=== PATIENT | female | born 1940 | race Caucasian/White ===

== ENCOUNTER → 2016-09-12 | Outpatient (CLI) | payer MEDICARE, OTHER ==
--- NOTE | 2016-09-12 15:25 | RAD ---
CT abdomen and pelvis without contrast History: Gross hematuria this morning. Comparison: CT abdomen pelvis 11/12/2004. Technique: Helical CT of the abdomen and pelvis was performed without intravenous or oral contrast. Axial, sagittal, and coronal reconstructions were obtained. One or more of the following individualized dose reduction techniques were utilized for the study: Automated exposure control Adjustment of mA and/or kV according to patient's size Use of iterative reconstruction technique. Findings: Evaluation of the solid organs is limited by lack of intravenous contrast. Evaluation of enteric structures may be limited by lack of oral contrast. Images of lower chest demonstrate mild scattered areas of honeycombing. Small-moderate hiatal hernia is present. Liver, spleen, pancreas, gallbladder, and left adrenal gland are unremarkable. Right adrenal gland demonstrates 1.3 cm lipid rich adenoma. There is no evidence of bowel obstruction. No free air or free fluid is identified in the abdomen or pelvis. Appendix appears within normal limits. Urinary bladder is unremarkable. Aortic atherosclerosis is present. Uterus and adnexa have unremarkable CT appearance. Each kidney demonstrates presence of nonobstructive nephroliths at the inferior pole. Right inferior pole demonstrates a 7 mm nonobstructing nephrolith. Inferior pole of left kidney demonstrates 8 mm nonobstructive nephrolith. Moderate-severe degenerative levoconvex scoliosis of the lumbar spine is present. Impression: 1. Bilateral nonobstructive nephrolithiasis. 2. No acute abnormality identified in the abdomen or pelvis.
== END | disposition home or self-care (01) ==
LOC: CT 14:17
PROVIDERS: ATTEND Physician Assistant
DX: N20.0 Calculus of kidney (principal); M41.86 Other forms of scoliosis, lumbar region; I70.0 Atherosclerosis of aorta; K44.9 Diaphragmatic hernia without obstruction or gangrene; R31.0 Gross hematuria; Z72.0 Tobacco use
CPT/HCPCS: 74176

== ENCOUNTER 2017-09-26 23:43 | Inpatient (IN) | payer MEDICARE, OTHER ==
[~2017-09-26] VITALS: Ht 162.6 cm; Wt 80.8 kg
--- NOTE | 2017-09-26 23:45 | ED.ADGEN ---
Past History Past Medical History: A-Fib, Arthritis, CHF, COPD, UTI, Other Past Surgical History: Other Smoking: Cigarettes Adult General Chief Complaint Chief Complaint ".. I ve been sick since last week.. I just coughing all the time.. can't breath..." HPI HPI Patient is a 77 year old female who presents with above hx and complaints increased wheezing and coughing. Patient does have a history of COPD, A. fib, and rheumatoid arthritis. Patient denies any specific ill contacts or travel. Patient has been coughing and so short of breath she has been unable to smoke. Patient states she was diagnosed with UTI when she seen Dr. Ruffin's office yesterday. Patient states she is unable to lay flat because she feels too short of breath. Patient used to be on xeralto anticoagulant but it was stopped because of the hematuria. Review of Systems Review of Systems Constitutional: Objective history of fever Eyes: Denies change in visual acuity, redness, or eye pain [] HENT: Complaints of nasal congestion , rhinorrhea, sore throat [] Respiratory: Persistent cough and increased shortness of breath [. Increased wheezing Cardiovascular: No additional information not addressed in HPI [] GI: Denies abdominal pain, nausea, vomiting, bloody stools or diarrhea [] : Denies dysuria or hematuria [] Musculoskeletal: Denies back pain or joint pain [] Integument: Denies rash or skin lesions [] Neurologic: Denies headache, focal weakness or sensory changes [] Endocrine: Denies polyuria or polydipsia [] All other systems were reviewed and found to be within normal limits, except as documented in this note. Family History Family History Noncontributory Current Medications Current Medications Current Medications Medications (Trade) Dose Ordered Sig/Osvaldo Start Time Stop Time Status Last Admin Dose Admin Acetaminophen/ Codeine Phosphate (Tylenol #3) 1 tab PRN QID PRN 09/27/17 01:45 Albuterol/ Ipratropium (Duoneb) 3 ml 1X ONCE 09/27/17 00:45 09/27/17 01:49 DC 09/27/17 00:58 3 ML Aspirin (Children'S Aspirin) 324 mg 1X ONCE 09/27/17 00:45 09/27/17 00:46 DC 09/27/17 00:57 324 MG Azithromycin (Zithromax) 500 mg 1X ONCE 09/27/17 00:45 09/27/17 00:46 DC 09/27/17 00:57 500 MG Ceftriaxone Sodium 1 gm/ Sodium Chloride 50 ml @ 100 mls/hr 1X ONCE 09/27/17 00:00 09/27/17 00:29 UNV Ceftriaxone Sodium (Rocephin) 1 gm ONCE ONCE 09/27/17 00:45 09/27/17 00:46 DC 09/27/17 00:56 1 GM Furosemide (Lasix) 20 mg 1X ONCE 09/27/17 02:00 09/27/17 02:01 DC 09/27/17 03:09 20 MG Iohexol (Omnipaque 300 Mg/ml) 75 ml 1X ONCE 09/27/17 02:00 09/27/17 02:01 DC 09/27/17 02:38 75 ML Lactated Ringer's 1,000 ml @ 100 mls/hr Q10H 09/27/17 00:30 09/27/17 10:29 09/27/17 03:10 100 MLS/HR Magnesium Sulfate 50 ml @ 25 mls/hr 1X ONCE 09/27/17 02:00 09/27/17 03:59 09/27/17 03:09 25 MLS/HR Methylprednisolone Sodium Succinate (SOLU-Medrol 125MG VIAL) 125 mg 1X ONCE 09/27/17 00:45 09/27/17 00:46 DC 09/27/17 00:57 125 MG Ondansetron HCl (Zofran) 4 mg PRN Q4HRS PRN 09/27/17 01:45 09/28/17 01:44 Allergies Allergies Allergies Coded Allergies Type Severity Reaction Last Updated Verified No Known Drug Allergies 09/26/17 No Physical Exam Physical Exam Constitutional: Moderately acute distress, non-toxic appearance. [] HENT: Normocephalic, atraumatic, bilateral external ears normal, oropharynx moist, no oral exudates, nose normal. [] Eyes: PERRLA, EOMI, conjunctiva normal, no discharge. [] Neck: Normal range of motion, no tenderness, supple, no stridor. [] Rt. sided endarterectomy scar Cardiovascular:Heart rate regular rhythm, no murmur [] Lungs & Thorax: Bilateral breath sounds equal at apex with scattered wheezes and rhonchi on auscultation []. Rhonchi seem worse on Rt lung spencer. Pt has episodes of severe coughing . Abdomen: Bowel sounds normal, soft, no tenderness, no masses, no pulsatile masses. [] Skin: Warm, dry, no erythema, no rash. Poor turgor Back: No tenderness, no CVA tenderness. [] Extremities: No tenderness, no cyanosis, no clubbing, ROM intact, no edema. [ Arthritic changes. Varicosities. No cording appreciated. Neurologic: Alert and oriented X 3, normal motor function, normal sensory function, no focal deficits noted. [] Psychologic: Affect anxious, judgement normal, mood normal. [] Current Patient Data Vital Signs Vital Signs Date Time Temp Pulse Resp B/P (MAP) Pulse Ox O2 Delivery O2 Flow Rate FiO2 09/27/17 01:51 70 20 130/60 (83) 95 Room Air Lab Results Laboratory Tests Test 09/26/17 00:05 White Blood Count 15.1 x10^3/uL (4.0-11.0) H Red Blood Count 3.68 x10^6/uL (3.50-5.40) Hemoglobin 12.2 g/dL (12.0-15.5) Hematocrit 36.1 % (36.0-47.0) Mean Corpuscular Volume 98 fL (79-100) Mean Corpuscular Hemoglobin 33 pg (25-35) Mean Corpuscular Hemoglobin Concent 34 g/dL (31-37) Red Cell Distribution Width 14.5 % (11.5-14.5) Platelet Count 223 x10^3/uL (140-400) Neutrophils (%) (Auto) 76 % (31-73) H Lymphocytes (%) (Auto) 14 % (24-48) L Monocytes (%) (Auto) 10 % (0-9) H Eosinophils (%) (Auto) 1 % (0-3) Basophils (%) (Auto) 0 % (0-3) Neutrophils # (Auto) 11.5 x10^3uL (1.8-7.7) H Lymphocytes # (Auto) 2.1 x10^3/uL (1.0-4.8) Monocytes # (Auto) 1.5 x10^3/uL (0.0-1.1) H Eosinophils # (Auto) 0.1 x10^3/uL (0.0-0.7) Basophils # (Auto) 0.0 x10^3/uL (0.0-0.2) Segmented Neutrophils % 66 % (35-66) Band Neutrophils % 7 % (0-9) Lymphocytes % 15 % (24-48) L Monocytes % 12 % (0-10) H Toxic Granulation Mod Platelet Estimate Adequate (ADEQUATE) Large Platelets Occ Erythrocyte Sedimentation Rate 50 (0-25) H Prothrombin Time 12.1 SEC (9.4-11.4) H Prothrombin Time INR 1.2 (0.9-1.1) H PTT 31 SEC (23-33) D-Dimer (Jocelin) 0.74 mg/L (0.00-0.50) H Urine Collection Type Unknown Urine Color Amanda Urine Clarity Hazy Urine pH 5.0 Urine Specific [place] 1.025 Urine Protein 30 mg/dl (NEG-TRACE) Urine Glucose (UA) Neg mg/dL (NEG) Urine Ketones (Stick) Neg mg/dL (NEG) Urine Blood Mod (NEG) Urine Nitrite Neg (NEG) Urine Bilirubin Neg (NEG) Urine Urobilinogen Dipstick 1 mg/dL (0.2 mg/dL) Urine Leukocyte Esterase Trace (NEG) Urine RBC >40 /HPF (0-2) Urine WBC >40 /HPF (0-4) Urine Bacteria Mod /HPF (0-FEW) Urine Mucus Slight /LPF Sodium Level 134 mmol/L (136-145) L Potassium Level 3.9 mmol/L (3.5-5.1) Chloride Level 98 mmol/L (98-107) Carbon Dioxide Level 25 mmol/L (21-32) Anion Gap 11 (6-14) Blood Urea Nitrogen 21 mg/dL (7-20) H Creatinine 0.8 mg/dL (0.6-1.0) Estimated GFR (Cockcroft-Gault) 69.7 Glucose Level 112 mg/dL (70-99) H Lactic Acid Level 1.4 mmol/L (0.4-2.0) Calcium Level 9.0 mg/dL (8.5-10.1) Magnesium Level 1.7 mg/dL (1.8-2.4) L Total Bilirubin 0.8 mg/dL (0.2-1.0) Direct Bilirubin 0.2 mg/dL (0.0-0.2) Aspartate Amino Transferase (AST) 45 U/L (15-37) H Alanine Aminotransferase (ALT) 21 U/L (14-59) Alkaline Phosphatase 95 U/L (46-116) Creatine Kinase 165 U/L (26-192) Creatine Kinase MB (Mass) 1.6 ng/mL (0.0-3.6) Creatine Kinase MB Relative Index 1.0 % (0-4) Troponin I Quantitative < 0.017 ng/mL (0-0.055) GF-Twc-B-Type Natriuretic Peptide 670 pg/mL (0-449) H Total Protein 6.6 g/dL (6.4-8.2) Albumin 3.4 g/dL (3.4-5.0) Lipase 176 U/L (73-393) Urine Opiates Screen Neg (NEG) Urine Methadone Screen Neg (NEG) Urine Barbiturates Neg (NEG) Urine Phencyclidine Screen Neg (NEG) Urine Amphetamine/Methamphetamine Neg (NEG) Urine Benzodiazepines Screen Neg (NEG) Urine Cocaine Screen Neg (NEG) Urine Cannabinoids Screen Neg (NEG) Urine Ethyl Alcohol Neg (NEG) EKG EKG My interpretation EKG shows a sinus rhythm at a rate of 71. There is leftward axis. No findings acute STEMI of contralateral changes.[] Radiology/Procedures Radiology/Procedures My interpretation of chest x-ray shows borderline cardiomegaly with COPD the parenchymal findings[]. Rt. upper lobe infiltrates. DJD. Hiatal hernia. Some increased cephalization. CT of chest pending at time of admission. Course & Med Decision Making Course & Med Decision Making Pertinent Labs and Imaging studies reviewed. (See chart for details). Discussed presentation, testing and tx plan with Dr Ruffin- pt to be admitted for further eval and tx. [] Final Impression Final Impression 1. COPD exacerbation 2. Leukocytosis 3. Hypoxia 4. Elevated D-dimer 5. CHF- BNP 670 6. UTI 7. Tobacco Use 8. Hx. Rheumatoid Arthritis 9. Hx. Afib 10. Pneumonia-Rt upper lobe 11. Hiatal hernia [] Problems: Dragon Disclaimer Dragon Disclaimer This electronic medical record was generated, in whole or in part, using a voice recognition dictation system. KAMILLA MENDOZA MD Sep 26, 2017 23:45
--- NOTE | 2017-09-27 00:28 | EKG ---
[address] [address] Test Date: 2017-09-26 Test Time: 23:56:19 Pat Name: JACY COLON Department: Room: Gender: F Infertility Medical Assistant: : 1940 Requested By: KAMILLA MENDOZA Order Number: [id number] Reading MD: Measurements Intervals [place] Rate: 71 P: 39 HI: 168 QRS: -14 QRSD: 98 T: 0 QT: 386 QTc: 420 Interpretive Statements SINUS RHYTHM LEFT ATRIAL ABNORMALITY LEFTWARD AXIS ABNORMAL ECG RI6.01 No previous ECG available for comparison
[2017-09-27] MEDS ORDERED: methylPREDNISolone SOD SUCC PF 125 MG/2 ML VIAL. IV ONE (00:45)
[2017-09-27] MEDS ORDERED: IPRATRPIUM/ALBUTEROL 0.5/2.5MG 3 ML NEBU. NEB ONE ×2 (00:45)
[2017-09-27] MEDS ORDERED: AZITHROMYCIN 250 MG TABLET. PO ONE (00:45)
[2017-09-27] MEDS ORDERED: cefTRIAXone IV Push 1 GM VIAL. IVP ONE (00:45)
[2017-09-27] MEDS ORDERED: ASPIRIN 81 MG TAB.CHEW PO ONE (00:45)
[2017-09-27] MEDS ORDERED: ACETAMINOPHEN/CODEINE 300/30MG TABLET PO ONE (00:45)
[2017-09-27] MEDS: IV RINGERS SOLUTION,LACTATED 1,000 ML IV SCH ×2 (00:57→03:10)
[2017-09-27 01:08] LABS: BASO % 0 % (0-3); EOS # 0.1 x10^3/uL (0.0-0.7); EOS % 1 % (0-3); HEMATOCRIT 36.1 % (36.0-47.0); HEMOGLOBIN 12.2 g/dL (12.0-15.5); LYMPH # 2.1 x10^3/uL (1.0-4.8); LYMPH % 14 % (24-48); MEAN CORPUSCULAR HEMOGLOBIN 33 pg (25-35); MEAN CORPUSCULAR HGB CONC 34 g/dL (31-37); MEAN CORPUSCULAR VOLUME 98 fL (79-100); MONO # 1.5 x10^3/uL (0.0-1.1); MONO % 10 % (0-9); NEUT # 11.5 x10^3uL (1.8-7.7); NEUT % 76 % (31-73); PLATELET COUNT 223 x10^3/uL (140-400); RED BLOOD COUNT 3.68 x10^6/uL (3.50-5.40); RED CELL DISTRIBUTION WIDTH 14.5 % (11.5-14.5); WHITE BLOOD COUNT 15.1 x10^3/uL (4.0-11.0)
[2017-09-27 01:30] LABS: ALBUMIN 3.4 g/dL (3.4-5.0); CREATININE 0.8 mg/dL (0.6-1.0); DIRECT BILIRUBIN 0.2 mg/dL (0.0-0.2); GFR 69.7; MAGNESIUM 1.7 mg/dL (1.8-2.4); POTASSIUM 3.9 mmol/L (3.5-5.1); TOTAL BILIRUBIN 0.8 mg/dL (0.2-1.0); TOTAL PROTEIN 6.6 g/dL (6.4-8.2)
[2017-09-27 01:44] LABS: BARBITURATES NEG (NEG); BENZODIAZEPINES NEG (NEG); CANNABINOIDS NEG (NEG); COCAINE NEG (NEG); METHADONE NEG (NEG); OPIATES NEG (NEG); PHENCYCLIDINE NEG (NEG)
[2017-09-27] MEDS ORDERED: ONDANSETRON PF 4 MG/2 ML VIAL. IV PRN (01:45)
[2017-09-27 01:48] LABS: AMPHETAMINE/METHAMPHETAMINE NEG (NEG)
[2017-09-27 01:56] LABS: BILIRUBIN,URINE NEG (NEG); CLARITY,URINE HAZY; COLOR,URINE AMBER; GLUCOSE,URINE NEG (NEG); NITRITE,URINE NEG (NEG); UROBILINOGEN,URINE 1 mg/dL (0.2 mg/dL)
[2017-09-27 01:57] LABS: BACTERIA,URINE MOD /HPF (0-FEW); RBC,URINE >40 /HPF (0-2); WBC,URINE >40 /HPF (0-4)
[2017-09-27] MEDS ORDERED: FUROSEMIDE 40 MG/4 ML VIAL IVP ONE (02:00)
[2017-09-27] MEDS ORDERED: MAGNESIUM SULFATE 2GM 50 ML IV ONE (02:00)
[2017-09-27] MEDS ORDERED: IOHEXOL 300 MG/ML 75 ML VIAL. IV ONE (02:00)
[2017-09-27 02:27] LABS: % BANDS 7 % (0-9); % LYMPHS 15 % (24-48); % MONOS 12 % (0-10); % SEGS 66 % (35-66); PLT ESTIMATE ADEQUATE (ADEQUATE)
[2017-09-27 02:28] LABS: TOXIC GRANULATION MOD
[2017-09-27 02:29] LABS: SEDIMENTATION RATE 50 (0-25)
--- NOTE | 2017-09-27 02:48 | NUR ---
The patient, JACY COLON, 77 y/o, F admitted by HERBERT ZUNIGA MD, was given written information regarding hospital policies, unit procedures and contact persons. Valuables were checked and logged. Call light in reach. Will continue to monitor.
[2017-09-27 03:00] VITALS: BP 118/49
--- NOTE | 2017-09-27 03:35 | RAD ---
CT angiogram of the chest with contrast: Reason for examination: Chest pain with elevated d-dimer and hypoxia. Helical images were obtained through the chest with intravenous administration of 75 cc Omnipaque 300 using PE protocol. 3-D MIPS reconstruction was performed in sagittal and coronal planes. Exposure: One or more of the following individualized dose reduction techniques were utilized for this examination: 1. Automated exposure control 2. Adjustment of the mA and/or kV according to patient size 3. Use of iterative reconstruction technique. No abnormality seen at the thyroid gland. The trachea and mainstem bronchi show no intraluminal lesions. There is a large hiatal hernia. The thoracic aorta shows no aneurysmal dilatation or dissection. The heart size is mildly enlarged with no pericardial effusion evident. No pulmonary embolus is evident. There are however patchy infiltrate seen bilaterally predominantly in the right upper lung field. A few scattered calcified granuloma present. No pleural effusions or pneumothorax are seen. There are degenerative changes in the spine. No abnormalities are seen at the liver, spleen or adrenal glands. Nonobstructing left renal calculus is seen. IMPRESSION: Large hiatal hernia. Cardiomegaly. No evidence of pulmonary embolus. Infiltrates bilaterally but predominantly in the right upper lobe. Degenerative spondylosis. Electronically signed by: Patricia Toney MD (09/27/2017 3:32 AM) [facility]
[2017-09-27] MEDS ORDERED: METO25TA2 PO (05:08)
[2017-09-27] MEDS ORDERED: NABU750T PO (05:10)
[2017-09-27 05:11] LABS: BASO % 0 % (0-3); EOS % 0 % (0-3); HEMATOCRIT 34.8 % (36.0-47.0); HEMOGLOBIN 11.7 g/dL (12.0-15.5); LYMPH # 0.6 x10^3/uL (1.0-4.8); LYMPH % 4 % (24-48); MEAN CORPUSCULAR HEMOGLOBIN 33 pg (25-35); MEAN CORPUSCULAR HGB CONC 34 g/dL (31-37); MEAN CORPUSCULAR VOLUME 98 fL (79-100); MONO # 0.3 x10^3/uL (0.0-1.1); MONO % 2 % (0-9); NEUT # 14.4 x10^3uL (1.8-7.7); NEUT % 94 % (31-73); PLATELET COUNT 211 x10^3/uL (140-400); RED BLOOD COUNT 3.57 x10^6/uL (3.50-5.40); RED CELL DISTRIBUTION WIDTH 14.5 % (11.5-14.5); WHITE BLOOD COUNT 15.3 x10^3/uL (4.0-11.0)
[2017-09-27] MEDS ORDERED: FLEC100T PO (05:12)
[2017-09-27] MEDS ORDERED: METH2.5T PO (05:12)
[2017-09-27] MEDS ORDERED: FOLI1TAB16 PO (05:12)
[2017-09-27] MEDS ORDERED: CHOL2000 PO (05:13)
[2017-09-27] MEDS ORDERED: ASPI-630 PO (05:14)
[2017-09-27] MEDS ORDERED: MULT-697 PO (05:14)
[2017-09-27] MEDS ORDERED: BENZ100C PO (05:15)
[2017-09-27] MEDS ORDERED: CETI10TA16 PO (05:15)
[2017-09-27] MEDS: IPRATRPIUM/ALBUTEROL 0.5/2.5MG 3 ML NEBU. NEB SCH ×5 (05:17→20:21)
[2017-09-27 05:25] LABS: ALBUMIN 3.1 g/dL (3.4-5.0); CALCIUM 8.7 mg/dL (8.5-10.1); CREATININE 0.7 mg/dL (0.6-1.0); GFR 81.4; POTASSIUM 3.3 mmol/L (3.5-5.1); TOTAL BILIRUBIN 0.7 mg/dL (0.2-1.0); TOTAL PROTEIN 6.2 g/dL (6.4-8.2)
[2017-09-27] MEDS ORDERED: PNEUMOCOCCAL VAX SCREEN. MC PRN (05:45)
[2017-09-27] MEDS ORDERED: POTASSIUM CHLORIDE 20 MEQ TABLET.ER. PO ONE (06:00)
[2017-09-27 06:41] LABS: SQUAMOUS EPITHELIAL CELL,UR MOD /LPF
[2017-09-27 08:00] VITALS: BP 114/62
--- NOTE | 2017-09-27 08:48 | RAD ---
PA and lateral chest x-ray History: Shortness of breath. Comparison: Chest x-ray September 15, 2011 Findings: Heart size stable. Bowel containing hiatal hernia presumably the upper stomach near from the prior x-ray. Small bilateral calcified pulmonary granulomas. Reticulonodular asymmetric density at the lung bases. There is also mild interstitial thickening of the peripheral lung zones. This is a change from prior imaging. No pneumothorax. No pleural effusions. Bones are unremarkable. Impression: 1. Mild pulmonary interstitial thickening could indicate interstitial edema or interstitial lung disease. Heterogeneous reticulonodular infiltrates at the lung bases. This could represent areas of atelectasis, early fibrotic change or multilobar pneumonia. 2. Hiatal hernia.
[2017-09-27] MEDS ORDERED: ENOXAPARIN ** NOTE DOSE ** SYRINGE SQ SCH (09:00)
[2017-09-27] MEDS: ASPIRIN 81 MG TAB.CHEW PO SCH (09:00)
[2017-09-27] MEDS ORDERED: AZITHROMYCIN 250 MG TABLET. PO SCH (09:00)
[2017-09-27] MEDS ORDERED: METHOTREXATE SODIUM 2.5 MG TABLET PO SCH (09:00)
[2017-09-27] MEDS ORDERED: PNEUMOC CONJ VACC 23-VALENT 0.5 ML VIAL. VAX IM ONE (09:00)
[2017-09-27] MEDS: methylPREDNISolone SOD SUCC PF 125 MG/2 ML VIAL. IV SCH (09:21)
[2017-09-27] MEDS: LACTOBACILLUS RHAMNOSUS GG 1 CAPSULE. PO SCH ×2 (09:21→20:40)
[2017-09-27] MEDS: FOLIC ACID 1 MG TABLET PO SCH (09:21)
[2017-09-27] MEDS: MELOXICAM 15 MG TABLET. PO SCH (09:22)
[2017-09-27] MEDS: METOPROLOL SUCC 24HR ER 25 MG TAB.ER.24H. PO SCH (09:23)
[2017-09-27] MEDS: MULTIVITAMIN with MINERAL TABLET. PO SCH (09:23)
[2017-09-27] MEDS: FLECAINIDE 50 MG TABLET. PO SCH ×2 (09:23→20:40)
[2017-09-27] MEDS: CHOLECALCIFEROL (VITAMIN D3) 1,000 UNIT TABLET PO SCH (09:24)
[2017-09-27] MEDS: AZITHROMYCIN 250 MG TABLET. PO SCH (09:24)
[2017-09-27] MEDS: CETIRIZINE HCL 10 MG TABLET PO SCH (09:35)
--- NOTE | 2017-09-27 10:57 | RAD ---
Bilateral lower extremity venous duplex Doppler ultrasound History: Shortness of breath, hypoxia. Technique: Grayscale and duplex Doppler sonography were utilized. Findings: No evidence of deep venous thrombosis with compressibility, and color Doppler blood flow and augmentation of blood flow of the bilateral common femoral veins, profunda femoral veins, superficial femoral veins and popliteal veins. Patent color Doppler blood flow without thrombosis of the posterior tibial veins in the calves. Impression: Negative bilateral legs for deep venous thrombosis.
[2017-09-27] MEDS ORDERED: ELECTROLYTE (NON-ICU) PROTOCOL MC PRN (11:00)
[2017-09-27 11:11] VITALS: BP 114/58
[2017-09-27 16:00] VITALS: BP 105/47
[2017-09-27 19:21] VITALS: BP 123/70
[2017-09-27] MEDS: cefTRIAXone IV Push 1 GM VIAL. IVP SCH (20:41)
[2017-09-27] MEDS ORDERED: cefTRIAXone IV Push 1 GM VIAL. IVP SCH (21:00)
[2017-09-27 22:07] VITALS: BP 125/58
--- NOTE | 2017-09-27 23:49 | PDOC1 ---
HISTORY & PHYSICAL DATE OF ADMISSION: histoiry and physical Patient: JACY DIAZ Provider: herbert zuniga md : 1940 Age: 77 Y Sex: Female Date: 09/26/2017 [address]: [address] [id number] ----- Subjective: Chief Complaints: 1. [place]. HPI: Depressioin Screening: PHQ-2 In last 2 weeks have you been bothered by Little interest or pleasure in doing things No, Feeling down depressed or hopeless Yes. She has UTI and got a prescription for Cipro. She has not started yet. She has history of a-fib and on Flecainide. She follow up with her scleroscope tester q 6 months. She had thyroidectomy in right side in 2016. She is not on thyroid medication. She also has history of RA and on Methotrexate and Nabumetone. ENT: c/o cough dry without any productive sputum, coughing , unable to sleep at night due to cough. c/o nasal congestion stuffy in am and at night. c/o ear pain. c/o headache. c/o chest congestion. c/o hoarsenss. Denies : sore throat. fever. chest pain. shortness of breath. dizziness. Mrs. Diaz was present in the office this morning stating that she is being couging since 09/21/2017. She stated that she used everything otc and nothing work. No other complain but alot of sinus drainged and not be able to sleep at night. Respiratory: Denies : dizzinessshortness of breath. wheezing. COPD. Asthma. ROS: CONSTITUTIONAL: no chills. no night sweats. chronic pain yes, RA. no acute pain. no fever. ENT: no fever. no pain in ears. post nasal drip yes. Runny nose stuffy nose . mucous drainage yes. cough yes. sore throat yes, feels scratchy. no sinus pain. RESPIRATORY: no chest tightness. no dyspnea. wheezing yes. no asthma. cough yes. shortness of breath yes, with cough. no chest pain. chest congestion yes. CARDIOLOGY: no chest pain. no nocturnal angina. atrial fibrillation yes. no lightheadedness. no HTN. no orthopnea. smoking yes. no leg edema. no palpitations. no dizziness. UROLOGY: no dysuria. no urgency. no difficulty urinating. frequent urination yes. no recurrent UTI. Medical History: Coronary Artery Disease. OB History: Total pregnancies 5. Total living children 3. Miscarriage(s) 2. Surgical History: colonoscopy . Hospitalization/Major Diagnostic Procedure: Afib 10/2013. Family History: Father: , ulcer and colon obstruction/ brain surgery secondary to injury Mother: , [place]/ 80 Social History: Smoking: yes Are you a: light tobacco smoker, Additional Findings: Tobacco User Chain smoker, Additional Findings: Tobacco Non-User Never chewed tobacco. no Recreational drug use. Caffeine: yes, frequency:5-6 coffee/sodas a day. Alcohol: socially, Type:bourbon , Frequency:3-4 times a week ,Years: 25 , Determination:. Alcohol Screening Did you have a drink containing alcohol in the past year? No, Points 0, Interpretation Negative. Medications: Taking methotrexate 2.5 mg tablet 3 tab(s) orally 1X/W, Taking nabumetone 750 mg tablet 2 tab(s) orally once a day, Taking folic acid 1 mg tablet 1 tab(s) orally once a day, Taking vitamin D 2000iu 1 daily, Taking Centrum Silver Therapeutic Multiple Vitamins with Minerals tablet 1 tab(s) orally once a day, Taking metoprolol er 25 mg tablet, extended release 1 tab(s) orally once a day, Taking flecainide 50 mg tablet 1 tab(s) orally every 12 hours, Taking Aspir 81 81 mg delayed release tablet 1 tab(s) orally once a day, Taking Cipro 500 mg tablet 1 tab(s) orally every 12 hours, stop date 10/04/2017, Not-Taking Tambocor 50 mg tablet 1 tab(s) orally every 12 hours, Medication List reviewed and reconciled with the patient Allergies: N.K.D.A. Objective: Vitals: BP 110/68, HR 112, RR 18, Temp 98.6, Ht 68, Wt 176.6, BMI 26.85, O2 sat 97% ra 97% ra. Examination: General Examination: General WDWN, NAD ambulatory and speech fluent, pleasant. HEENT: AT/NC, pharynx and tonsils normal, , no sinus tenderness, clear PND, mild erythema of nasal mucosa. Oral cavity: no lesions. Neck, Thyroid : supple, no lymphadenopathy, normal ROM of C spine, non-tender, . Lungs: decrease breath sounds but improved after breathing treatment.. Heart: no murmurs, RSR, normal S1S2. Skin age appropriate. Extremeties. no clubbing, no edema. lower extremeties good ROM, no pain . Mental status appropriate. Assessment: Assessment: 1. Pneumonia and Acute upper respiratory infection, unspecified - J06.9 (Primary) 2. Acute bronchitis - J20.8 3. Cough - R05 4. Urinary tract infection, site not specified - N39.0 5. Tobacco abuse counseling - Z71.6 Plan: 1. Acute upper respiratory infection, unspecified Start Flonase nasal spray, 50mcg per spray, 2 spray each nostril, qd, 1 bottle, Refills 2 ; Start cetirizine tablet, 10 mg, 1 tab(s), orally, once a day, 30, 30 ; Start Mucinex tablet, extended release, 600 mg, 1 tab(s), orally, every 12 hours, 5 day(s), 10 . Notes: Have he rincrease fluid intake. Recommend sleep with head of bed elevated. 2. Acute bronchitis Start Zithromax Z-Guillermo tablet, 250 mg, 2 tablets on the first day, then 1 tablet daily for 4 days, orally, once a day, 5 days . 3. Cough Start tessalon perles capsule, 100 mg, 1 cap(s), orally, 3 times a day, 10 day(s), 30 . Notes: Instruct the patient avoid exposure to cigarette smoke. 4. Urinary tract infection, site not specified Continue Cipro tablet, 500 mg, 1 tab(s), orally, every 12 hours, 7 day(s), 14 . 5. Others admit [facility] of pneumonia iv antibiotics. Imaging: Imaging: CHEST X-RAY Procedure Codes: 44904 X-RAY EXAM CHEST 2 VIEWS, G8427 DOC MEDS VERIFIED W/PT OR RE Follow Up: 2 weeks Provider: Patient: JACY DIAZ : 1940 Date: 09/27/2017 Sign off status: Pending HPI: PROBLEMS: Problems Medical Problems: (1) COPD exacerbation Status: Acute ALLERGIES: Allergies Coded Allergies Type Severity Reaction Last Updated Verified No Known Drug Allergies 09/26/17 No MEDS: MEDICATIONS: Current Medications Medications (Trade) Dose Ordered Sig/Osvaldo Start Time Stop Time Status Last Admin Dose Admin Acetaminophen/ Codeine Phosphate (Tylenol #3) 1 tab PRN QID PRN 09/27/17 01:45 Albuterol/ Ipratropium (Duoneb) 3 ml RTQID 09/27/17 12:00 09/27/17 20:21 3 ML Aspirin (Children'S Aspirin) 81 mg DAILY 09/27/17 09:00 Azithromycin (Zithromax) 250 mg DAILY 09/27/17 09:00 09/27/17 09:24 250 MG Benzonatate (Tessalon Perle) 100 mg PRN TID PRN 09/27/17 08:30 Ceftriaxone Sodium 1 gm/ Sodium Chloride 50 ml @ 100 mls/hr Q24H 09/27/17 08:30 UNV Ceftriaxone Sodium (Rocephin) 1 gm Q24H 09/27/17 21:00 09/27/17 20:41 1 GM Cetirizine HCl (ZyrTEC) 10 mg DAILY 09/27/17 09:00 09/27/17 09:35 10 MG Enoxaparin Sodium (Lovenox 80mg Syringe) 80 mg BID 09/27/17 09:00 09/27/17 11:34 DC 09/27/17 09:27 80 MG Enoxaparin Sodium (Lovenox) 40 mg DAILY 09/28/17 09:00 Flecainide Acetate (Tambocor) 50 mg BID 09/27/17 09:00 09/27/17 20:40 50 MG Folic Acid (Folic Acid) 1 mg DAILY 09/27/17 09:00 09/27/17 09:21 1 MG Furosemide (Lasix) 20 mg 1X ONCE 09/27/17 02:00 4/22/18 02:01 DC 09/27/17 03:09 20 MG Info (Non-Icu Electrolyte Protocol) 1 ea CONT PRN PRN 09/27/17 11:00 Iohexol (Omnipaque 300 Mg/ml) 75 ml 1X ONCE 09/27/17 02:00 09/27/17 02:01 DC 09/27/17 02:38 75 ML Lactated Ringer's 1,000 ml @ 100 mls/hr Q10H 09/27/17 00:30 09/27/17 10:29 DC 09/27/17 03:10 100 MLS/HR Lactobacillus Rhamnosus (Culturelle) 1 cap BID 09/27/17 09:00 09/27/17 20:40 1 CAP Magnesium Sulfate 50 ml @ 25 mls/hr 1X ONCE 09/27/17 02:00 09/27/17 03:59 DC 09/27/17 03:09 25 MLS/HR Meloxicam (Mobic) 15 mg DAILY 09/27/17 09:00 09/27/17 09:22 15 MG Methotrexate (Rheumatrex) 15 mg WEEKLY 09/29/17 09:00 Methylprednisolone Sodium Succinate (SOLU-Medrol 125MG VIAL) 125 mg DAILY 09/27/17 09:00 09/27/17 09:21 125 MG Metoprolol Succinate (Toprol Xl) 25 mg DAILY 09/27/17 09:00 09/27/17 09:23 25 MG Multivitamins/ Calcium (Thera-M Plus) 1 tab DAILY 09/27/17 09:00 09/27/17 09:23 1 TAB Ondansetron HCl (Zofran) 4 mg PRN Q4HRS PRN 09/27/17 01:45 09/28/17 01:44 Pneumococcal Polyvalent Vaccine (Do NOT chart on this entry -- for MONITORING) 1 each PRN 1X PRN 09/27/17 05:45 Cancel Pneumococcal Polyvalent Vaccine (Pneumovax 23) 0.5 ml ONCE ONCE 09/28/17 09:00 09/28/17 09:01 09/27/17 20:40 0.5 ML Potassium Chloride (Klor-Con) 40 meq 1X ONCE 09/27/17 06:00 09/27/17 06:01 DC 09/27/17 06:13 40 MEQ Vitamin D (Vitamin D3) 2,000 unit DAILY 09/27/17 09:00 09/27/17 09:24 2,000 UNIT VITALS: Vital Signs Date Time Temp Pulse Resp B/P (MAP) Pulse Ox O2 Delivery O2 Flow Rate FiO2 09/27/17 22:07 98.0 75 16 125/58 (80) 91 Room Air LABS: Laboratory Tests Test 09/26/17 00:05 09/27/17 03:00 09/27/17 05:00 White Blood Count 15.1 x10^3/uL (4.0-11.0) 15.3 x10^3/uL (4.0-11.0) Red Blood Count 3.68 x10^6/uL (3.50-5.40) 3.57 x10^6/uL (3.50-5.40) Hemoglobin 12.2 g/dL (12.0-15.5) 11.7 g/dL (12.0-15.5) Hematocrit 36.1 % (36.0-47.0) 34.8 % (36.0-47.0) Mean Corpuscular Volume 98 fL (79-100) 98 fL (79-100) Mean Corpuscular Hemoglobin 33 pg (25-35) 33 pg (25-35) Mean Corpuscular Hemoglobin Concent 34 g/dL (31-37) 34 g/dL (31-37) Red Cell Distribution Width 14.5 % (11.5-14.5) 14.5 % (11.5-14.5) Platelet Count 223 x10^3/uL (140-400) 211 x10^3/uL (140-400) Neutrophils (%) (Auto) 76 % (31-73) 94 % (31-73) Lymphocytes (%) (Auto) 14 % (24-48) 4 % (24-48) Monocytes (%) (Auto) 10 % (0-9) 2 % (0-9) Eosinophils (%) (Auto) 1 % (0-3) 0 % (0-3) Basophils (%) (Auto) 0 % (0-3) 0 % (0-3) Neutrophils # (Auto) 11.5 x10^3uL (1.8-7.7) 14.4 x10^3uL (1.8-7.7) Lymphocytes # (Auto) 2.1 x10^3/uL (1.0-4.8) 0.6 x10^3/uL (1.0-4.8) Monocytes # (Auto) 1.5 x10^3/uL (0.0-1.1) 0.3 x10^3/uL (0.0-1.1) Eosinophils # (Auto) 0.1 x10^3/uL (0.0-0.7) 0.0 x10^3/uL (0.0-0.7) Basophils # (Auto) 0.0 x10^3/uL (0.0-0.2) 0.0 x10^3/uL (0.0-0.2) Segmented Neutrophils % 66 % (35-66) Band Neutrophils % 7 % (0-9) Lymphocytes % 15 % (24-48) Monocytes % 12 % (0-10) Toxic Granulation Mod Platelet Estimate Adequate (ADEQUATE) Large Platelets Occ Erythrocyte Sedimentation Rate 50 (0-25) Prothrombin Time 12.1 SEC (9.4-11.4) Prothromb Time International Ratio 1.2 (0.9-1.1) Activated Partial Thromboplast Time 31 SEC (23-33) D-Dimer (Jocelin) 0.74 mg/L (0.00-0.50) Urine Collection Type Unknown Urine Color Amanda Urine Clarity Hazy Urine pH 5.0 Urine Specific Albert 1.025 Urine Protein 30 mg/dl (NEG-TRACE) Urine Glucose (UA) Neg mg/dL (NEG) Urine Ketones (Stick) Neg mg/dL (NEG) Urine Blood Mod (NEG) Urine Nitrite Neg (NEG) Urine Bilirubin Neg (NEG) Urine Urobilinogen Dipstick 1 mg/dL (0.2 mg/dL) Urine Leukocyte Esterase Trace (NEG) Urine RBC >40 /HPF (0-2) Urine WBC >40 /HPF (0-4) Urine Squamous Epithelial Cells Mod /LPF Urine Bacteria Mod /HPF (0-FEW) Urine Mucus Slight /LPF Sodium Level 134 mmol/L (136-145) 136 mmol/L (136-145) Potassium Level 3.9 mmol/L (3.5-5.1) 3.3 mmol/L (3.5-5.1) Chloride Level 98 mmol/L (98-107) 100 mmol/L (98-107) Carbon Dioxide Level 25 mmol/L (21-32) 25 mmol/L (21-32) Anion Gap 11 (6-14) 11 (6-14) Blood Urea Nitrogen 21 mg/dL (7-20) 18 mg/dL (7-20) Creatinine 0.8 mg/dL (0.6-1.0) 0.7 mg/dL (0.6-1.0) Estimated GFR (Cockcroft-Gault) 69.7 81.4 Glucose Level 112 mg/dL (70-99) 163 mg/dL (70-99) Lactic Acid Level 1.4 mmol/L (0.4-2.0) Calcium Level 9.0 mg/dL (8.5-10.1) 8.7 mg/dL (8.5-10.1) Magnesium Level 1.7 mg/dL (1.8-2.4) 2.4 mg/dL (1.8-2.4) Total Bilirubin 0.8 mg/dL (0.2-1.0) 0.7 mg/dL (0.2-1.0) Direct Bilirubin 0.2 mg/dL (0.0-0.2) Aspartate Amino Transf (AST/SGOT) 45 U/L (15-37) 44 U/L (15-37) Alanine Aminotransferase (ALT/SGPT) 21 U/L (14-59) 20 U/L (14-59) Alkaline Phosphatase 95 U/L (46-116) 89 U/L (46-116) Creatine Kinase 165 U/L (26-192) Creatine Kinase MB (Mass) 1.6 ng/mL (0.0-3.6) Creatine Kinase MB Relative Index 1.0 % (0-4) Troponin I Quantitative < 0.017 ng/mL (0-0.055) < 0.017 ng/mL (0-0.055) KV-Vbk-X-Type Natriuretic Peptide 670 pg/mL (0-449) Total Protein 6.6 g/dL (6.4-8.2) 6.2 g/dL (6.4-8.2) Albumin 3.4 g/dL (3.4-5.0) 3.1 g/dL (3.4-5.0) Lipase 176 U/L (73-393) Thyroid Stimulating Hormone (TSH) 1.140 uIU/mL (0.358-3.740) Urine Opiates Screen Neg (NEG) Urine Methadone Screen Neg (NEG) Urine Barbiturates Neg (NEG) Urine Phencyclidine Screen Neg (NEG) Urine Amphetamine/Methamphetamine Neg (NEG) Urine Benzodiazepines Screen Neg (NEG) Urine Cocaine Screen Neg (NEG) Urine Cannabinoids Screen Neg (NEG) Urine Ethyl Alcohol Neg (NEG) Nasal Screen MRSA (PCR) Negative (Negative) BUN/Creatinine Ratio 26 (6-20) Albumin/Globulin Ratio 1.0 (1.0-1.7) HERBERT ZUNIGA MD Sep 27, 2017 23:49
[2017-09-28] MEDS: BENZONATATE 100 MG CAPSULE. PO PRN ×2 (00:31→08:24)
[2017-09-28] MEDS: ACETAMINOPHEN/CODEINE 300/30MG TABLET PO PRN (00:32)
[2017-09-28] MEDS: IPRATRPIUM/ALBUTEROL 0.5/2.5MG 3 ML NEBU. NEB SCH ×4 (05:32→20:21)
[2017-09-28 06:03] LABS: CALCIUM 9.6 mg/dL (8.5-10.1); CREATININE 0.8 mg/dL (0.6-1.0); GFR 69.7; POTASSIUM 4.4 mmol/L (3.5-5.1)
[2017-09-28 06:05] VITALS: BP 114/57
[2017-09-28 06:08] LABS: BASO % 0 % (0-3); EOS % 0 % (0-3); HEMATOCRIT 36.1 % (36.0-47.0); LYMPH # 2.1 x10^3/uL (1.0-4.8); LYMPH % 8 % (24-48); MEAN CORPUSCULAR HEMOGLOBIN 33 pg (25-35); MEAN CORPUSCULAR HGB CONC 33 g/dL (31-37); MEAN CORPUSCULAR VOLUME 98 fL (79-100); MONO # 1.5 x10^3/uL (0.0-1.1); MONO % 5 % (0-9); NEUT # 23.8 x10^3uL (1.8-7.7); NEUT % 87 % (31-73); PLATELET COUNT 237 x10^3/uL (140-400); RED CELL DISTRIBUTION WIDTH 14.5 % (11.5-14.5)
[2017-09-28] MEDS: methylPREDNISolone SOD SUCC PF 125 MG/2 ML VIAL. IV SCH (08:22)
[2017-09-28] MEDS: FOLIC ACID 1 MG TABLET PO SCH (08:24)
[2017-09-28] MEDS: MULTIVITAMIN with MINERAL TABLET. PO SCH (08:24)
[2017-09-28] MEDS: AZITHROMYCIN 250 MG TABLET. PO SCH (08:25)
[2017-09-28] MEDS: ASPIRIN 81 MG TAB.CHEW PO SCH (08:25)
[2017-09-28] MEDS: CHOLECALCIFEROL (VITAMIN D3) 1,000 UNIT TABLET PO SCH (08:25)
[2017-09-28] MEDS: METOPROLOL SUCC 24HR ER 25 MG TAB.ER.24H. PO SCH (08:25)
[2017-09-28] MEDS: LACTOBACILLUS RHAMNOSUS GG 1 CAPSULE. PO SCH ×2 (08:25→21:02)
[2017-09-28] MEDS: FLECAINIDE 50 MG TABLET. PO SCH ×2 (08:26→21:02)
[2017-09-28] MEDS: ENOXAPARIN 40 MG/0.4 ML DISP.SYRIN. SQ SCH (08:30)
[2017-09-28] MEDS: MELOXICAM 15 MG TABLET. PO SCH (08:33)
[2017-09-28] MEDS: CETIRIZINE HCL 10 MG TABLET PO SCH (08:34)
[2017-09-28 08:58] LABS: % BANDS 1 % (0-9); % LYMPHS 9 % (24-48); % MONOS 5 % (0-10); % SEGS 85 % (35-66); PLATELET CLUMP PRESENT; PLT ESTIMATE ADEQUATE (ADEQUATE); POLYCHROMASIA SLIGHT
[2017-09-28 08:59] LABS: TOXIC GRANULATION SLIGHT; TOXIC VACUOLATION SLIGHT
[2017-09-28] MEDS ORDERED: PNEUMOC CONJ VACC 23-VALENT 0.5 ML VIAL. VAX IM ONE ×2 (09:00)
[2017-09-28 09:05] LABS: ANISOCYTOSIS SLIGHT
[2017-09-28 10:20] VITALS: BP 118/68
[2017-09-28 15:09] VITALS: BP 109/67
--- NOTE | 2017-09-28 15:12 | RAD ---
2 views of the Chest 09/28/2017 3:11 PM Indication: Shortness of breath Comparison: Chest radiograph, yesterday. CT angiography of the chest, yesterday. Findings: Right upper lobe infiltrate is again noted, more prominent on yesterday's radiograph. More mild left upper lobe infiltrate is also present. Calcified granuloma in the lateral left upper lobe is stable. No pneumothorax. Trace bilateral pleural effusions are present. Heart is top normal in size. Hiatal hernia is similar comparison studies. No acute osseous changes are identified in the interim. Impression: 1. Interval worsening of right upper lobe and to lesser degree left frontal lobe infiltrates concerning for pneumonia 2. Trace bilateral pleural effusions
[2017-09-28 19:03] VITALS: BP 113/58
[2017-09-28] MEDS: cefTRIAXone IV Push 1 GM VIAL. IVP SCH (21:01)
[2017-09-28 22:08] VITALS: BP 105/63
[2017-09-29] VITALS (38 sets, daily range): BP systolic 87–156; BP diastolic 47–110
[2017-09-29] MEDS: BENZONATATE 100 MG CAPSULE. PO PRN ×2 (00:21→20:49)
[2017-09-29] MEDS: ACETAMINOPHEN/CODEINE 300/30MG TABLET PO PRN ×3 (01:52→20:50)
[2017-09-29] MEDS: IPRATRPIUM/ALBUTEROL 0.5/2.5MG 3 ML NEBU. NEB SCH ×4 (05:10→22:05)
--- NOTE | 2017-09-29 05:59 | NUR ---
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 Pt c/o palpitations and worsening headache. Known hx of afib. Stat EKG ordered per protocol. Notified Dr. Ruffin of Afib with RVR. Orders received to move pt to ICU and give digoxin 500mcg IV x1. Pt updated on POC.
[2017-09-29] MEDS ORDERED: DIGOXIN IV 500 MCG/2 ML AMPUL. IV ONE (06:00)
--- NOTE | 2017-09-29 06:00 | EKG ---
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
[2017-09-29 06:46] LABS: BASO # 0.1 x10^3/uL (0.0-0.2); BASO % 0 % (0-3); EOS % 0 % (0-3); HEMATOCRIT 38.2 % (36.0-47.0); HEMOGLOBIN 12.5 g/dL (12.0-15.5); LYMPH # 2.6 x10^3/uL (1.0-4.8); LYMPH % 12 % (24-48); MEAN CORPUSCULAR HEMOGLOBIN 32 pg (25-35); MEAN CORPUSCULAR HGB CONC 33 g/dL (31-37); MEAN CORPUSCULAR VOLUME 99 fL (79-100); MONO # 1.4 x10^3/uL (0.0-1.1); MONO % 6 % (0-9); NEUT # 17.9 x10^3uL (1.8-7.7); NEUT % 81 % (31-73); PLATELET COUNT 280 x10^3/uL (140-400); RED BLOOD COUNT 3.86 x10^6/uL (3.50-5.40); RED CELL DISTRIBUTION WIDTH 14.7 % (11.5-14.5)
[2017-09-29] MEDS: ASPIRIN 81 MG TAB.CHEW PO SCH (06:56)
[2017-09-29 06:57] LABS: CALCIUM 9.7 mg/dL (8.5-10.1); CREATININE 0.8 mg/dL (0.6-1.0); GFR 69.7; POTASSIUM 4.3 mmol/L (3.5-5.1)
--- NOTE | 2017-09-29 07:00 | PN ---
DATE: 09/28/2017 SUBJECTIVE: The patient is admitted with pneumonia. The patient is doing somewhat better, but still having some coughing jags to the point where oxygen saturation drops down into the low 80s. As a result of that, we will get another chest x-ray. White count is up probably from the prednisone, but will recheck the chest x-ray and make further evaluation once that is done. Potassium has come up. We will continue to monitor. Her urine culture is still pending, although she is on Zithromax and Rocephin. OBJECTIVE: VITAL SIGNS: Blood pressure 120/70, respiratory rate 20, pulse 60, and afebrile. LUNGS: Diminished primarily in the right upper lobe. CARDIOVASCULAR: Regular sinus rhythm. ABDOMEN: Soft, nontender. NEUROLOGIC: She is alert and oriented. IMPRESSION: Pneumonia of unspecified etiology, community acquired; bilateral exacerbation of chronic obstructive pulmonary disease. PLAN: Continue on IV antibiotic therapy for now. Get chest x-ray. Continue with breathing treatments. Taper down on Solu-Medrol. HERBERT ZUNIGA MD DR: BERTA/eugene JOB#: [id number] / [id number]
[2017-09-29] MEDS: FLECAINIDE 50 MG TABLET. PO SCH ×2 (07:03→20:50)
[2017-09-29] MEDS: METOPROLOL SUCC 24HR ER 25 MG TAB.ER.24H. PO SCH (07:03)
--- NOTE | 2017-09-29 07:22 | NUR ---
NSG NOTE; DR LAM CONSULT CALLED TO [facility] AT 0717 DR LAM RETURNED CALL AT 0721. HE WAS INFORMED OF THE PT'S CONVERSION TO AFIB RVR, HER BP AND IRTCHIE. HE ORDERED A DILTIAZEM DRIP. THE PHARMACY IS OUT OF DILTIAZEM D/T A [facility]ORT[facility], HE STATED THAT DEREK ROBLES WILL BE IN TO SEE THE PT WITHIN THE NEXT HOUR AND WILL REEVALUATE HER CONDITION AT THAT TIME
[2017-09-29] MEDS ORDERED: ESMOLOL 2500MG/250ML PREMIX 250 ML IV PRN (07:45)
[2017-09-29] MEDS: ENOXAPARIN 40 MG/0.4 ML DISP.SYRIN. SQ SCH (08:09)
[2017-09-29] MEDS: methylPREDNISolone SOD SUCC PF 40 MG/ML VIAL. IV SCH (08:09)
[2017-09-29] MEDS: CHOLECALCIFEROL (VITAMIN D3) 1,000 UNIT TABLET PO SCH (08:10)
[2017-09-29] MEDS: LACTOBACILLUS RHAMNOSUS GG 1 CAPSULE. PO SCH ×2 (08:10→20:49)
[2017-09-29] MEDS: FOLIC ACID 1 MG TABLET PO SCH (08:10)
[2017-09-29] MEDS: CETIRIZINE HCL 10 MG TABLET PO SCH (08:10)
[2017-09-29] MEDS: MULTIVITAMIN with MINERAL TABLET. PO SCH (08:11)
[2017-09-29] MEDS: AZITHROMYCIN 250 MG TABLET. PO SCH (08:11)
--- NOTE | 2017-09-29 08:59 | PDOC2 ---
CONSULT Date of Admission DATE: 09/29/17 TIME: 08:57 Reason for Consult: atrial fibrillation with RVR Problem List Problems Medical Problems: (1) COPD exacerbation Status: Acute History of Present Illness Ms Diaz is a 77 year old female who was initially admitted with acute bronchitis/pneumonia on the . She has been receiving antibiotics, steroids and nebulizers. Early this am she developed atrial fibrillation with Rapid ventricular response. She does have a history of paroxysmal atrial fibrillation for which she follows with Dr Brunner. She reports that she has been in a normal rhythm for quite some time. She normally takes flecainide. She takes aspirin only for stroke prophylaxis due to recurrent hematuria on anticoagulation. She denies chest pain. She does complain of back pain with coughing. She reports dyspnea that has improved but continues to cough though that is improving as well. She denies palpitations, lightheadedness or syncope. Past Medical History vitamin d deficiency Cardiovascular: AFIB, Other (She denies any coronary artery disease and reports prior ischemic workup was negative) Rheumatologic: Rheumatoid arthritis Renal/: UTI Past Surgical History knee surgery, right parathyroidectomy, c section Family History Family History: Father: , ulcer and colon obstruction/ brain surgery secondary to injury Mother: , CO/ 80 Social History + tobaccoism, last cigarette was about 2 weeks ago, no significant ETOH, no illicit drugs Current Medications Current Medications Aspirin (Children'S Aspirin) 324 mg 1X ONCE PO Last administered on 09/27/17at 00:57; Start 09/27/17 at 00:45; Stop 09/27/17 at 00:46; Status DC Lactated Ringer's 1,000 ml @ 100 mls/hr Q10H IV Last administered on at 03:10; Start 09/27/17 at 00:30; Stop 09/27/17 at 10:29; Status DC Methylprednisolone Sodium Succinate (SOLU-Medrol 125MG VIAL) 125 mg 1X ONCE IV Last administered on 09/27/17at 00:57; Start 09/27/17 at 00:45; Stop 09/27/17 at 00:46; Status DC Azithromycin (Zithromax) 500 mg 1X ONCE PO Last administered on 09/27/17at 00: 57; Start 09/27/17 at 00:45; Stop 09/27/17 at 00:46; Status DC Albuterol/ Ipratropium (Duoneb) 3 ml 1X ONCE NEB Last administered on at 23:50; Start 09/27/17 at 00:00; Stop 09/27/17 at 00:34; Status DC Ceftriaxone Sodium 1 gm/ Sodium Chloride 50 ml @ 100 mls/hr 1X ONCE IV ; Start 09/27/17 at 00:00; Stop 09/27/17 at 00:29; Status UNV Ceftriaxone Sodium (Rocephin) 1 gm ONCE ONCE IVP Last administered on at 00:56; Start 09/27/17 at 00:45; Stop 09/27/17 at 00:46; Status DC Albuterol/ Ipratropium (Duoneb) 3 ml 1X ONCE NEB Last administered on at 00:58; Start 09/27/17 at 00:45; Stop 09/27/17 at 01:49; Status DC Acetaminophen/ Codeine Phosphate (Tylenol #3) 1 tab 1X ONCE PO Last administered on 09/27/17at 01:18; Start 09/27/17 at 00:45; Stop 09/27/17 at 01:49 ; Status DC Iohexol (Omnipaque 300 Mg/ml) 75 ml 1X ONCE IV Last administered on 09/27/17at 02:38; Start 09/27/17 at 02:00; Stop 09/27/17 at 02:01; Status DC Ondansetron HCl (Zofran) 4 mg PRN Q4HRS PRN IV NAUSEA/VOMITING; Start 09/27/17 at 01:45; Stop 09/28/17 at 01:44; Status DC Albuterol/ Ipratropium (Duoneb) 3 ml RTQID NEB Last administered on 09/27/17at 10:25; Start 09/27/17 at 08:00; Stop 09/27/17 at 10:54; Status DC Methylprednisolone Sodium Succinate (SOLU-Medrol 125MG VIAL) 125 mg DAILY IV Last administered on 09/28/17at 08:22; Start 09/27/17 at 09:00; Stop 09/28/17 at 13:19; Status DC Azithromycin (Zithromax) 250 mg DAILY PO ; Start 09/27/17 at 09:00; Status Cancel Ceftriaxone Sodium 1 gm/ Sodium Chloride 50 ml @ 100 mls/hr DAILY IV ; Start at 09:00; Status UNV Acetaminophen/ Codeine Phosphate (Tylenol #3) 1 tab PRN QID PRN PO for severe coughing episodes Last administered on 09/29/17at 08:18; Start 09/27/17 at 01:45 Enoxaparin Sodium (Lovenox 80mg Syringe) 80 mg BID SQ Last administered on 09/27at 09:27; Start 09/27/17 at 09:00; Stop 09/27/17 at 11:34; Status DC Furosemide (Lasix) 20 mg 1X ONCE IVP Last administered on 09/27/17at 03:09; Start 09/27/17 at 02:00; Stop 09/27/17 at 02:01; Status DC Magnesium Sulfate 50 ml @ 25 mls/hr 1X ONCE IV Last administered on 09/27/17at 03:09; Start 09/27/17 at 02:00; Stop 09/27/17 at 03:59; Status DC Ceftriaxone Sodium (Rocephin) 1 gm Q24H IVP ; Start 09/27/17 at 21:00; Status Cancel Pneumococcal Polyvalent Vaccine (Pneumovax 23) 0.5 ml ONCE ONCE VAX IM ; Start 09/28/17 at 09:00; Stop 09/28/17 at 09:01; Status UNV Pneumococcal Polyvalent Vaccine (Pneumovax 23) 0.5 ml ONCE ONCE VAX IM ; Start 09/27/17 at 09:00; Stop 09/27/17 at 09:47; Status DC Pneumococcal Polyvalent Vaccine (Do NOT chart on this entry -- for MONITORING) 1 each PRN 1X PRN MC SEE COMMENTS; Start 09/27/17 at 05:45; Status Cancel Potassium Chloride (Klor-Con) 40 meq 1X ONCE PO Last administered on at 06:13; Start 09/27/17 at 06:00; Stop 09/27/17 at 06:01; Status DC Lactobacillus Rhamnosus (Culturelle) 1 cap BID PO Last administered on at 08:10; Start 09/27/17 at 09:00 Aspirin (Children'S Aspirin) 81 mg DAILY PO Last administered on 09/29/17at 06: 56; Start 09/27/17 at 09:00 Benzonatate (Tessalon Perle) 100 mg PRN TID PRN PO COUGH Last administered on 00:21; Start 09/27/17 at 08:30 Cetirizine HCl (ZyrTEC) 10 mg DAILY PO Last administered on 09/29/17 08:10; Start 09/27/17 at 09:00 Folic Acid (Folic Acid) 1 mg DAILY PO Last administered on 09/29/17 08:10; Start 09/27/17 at 09:00 Methotrexate (Rheumatrex) 15 mg WEEKLY PO ; Start 09/27/17 at 09:00; Status Cancel Metoprolol Succinate (Toprol Xl) 25 mg DAILY PO Last administered on 09/29/17 07:03; Start 09/27/17 at 09:00 Vitamin D (Vitamin D3) 2,000 unit DAILY PO Last administered on 09/29/17 08:10 ; Start 09/27/17 at 09:00 Flecainide Acetate (Tambocor) 50 mg BID PO Last administered on 09/29/17 07:03 ; Start 09/27/17 at 09:00 Multivitamins/ Calcium (Thera-M Plus) 1 tab DAILY PO Last administered on 08:11; Start 09/27/17 at 09:00 Meloxicam (Mobic) 15 mg DAILY PO Last administered on 09/28/17 08:33; Start at 09:00 Ceftriaxone Sodium 1 gm/ Sodium Chloride 50 ml @ 100 mls/hr Q24H IV ; Start at 08:30; Status UNV Azithromycin (Zithromax) 250 mg DAILY PO Last administered on 09/29/17 08:11; Start 09/27/17 at 09:00 Ceftriaxone Sodium (Rocephin) 1 gm Q24H IVP Last administered on 09/28/17 21: 01; Start 09/27/17 at 21:00 Methotrexate (Rheumatrex) 15 mg WEEKLY PO Last administered on 09/29/17 08:14 ; Start 09/29/17 at 09:00 Pneumococcal Polyvalent Vaccine (Pneumovax 23) 0.5 ml ONCE ONCE VAX IM Last administered on 09/27/17at 20:40; Start 09/28/17 at 09:00; Stop 09/28/17 at 09:01 ; Status DC Albuterol/ Ipratropium (Duoneb) 3 ml RTQID NEB Last administered on 09/29/17at 05:10; Start 09/27/17 at 12:00 Info (Non-Icu Electrolyte Protocol) 1 ea CONT PRN PRN MC PER PROTOCOL; Start at 11:00 Enoxaparin Sodium (Lovenox) 40 mg DAILY SQ Last administered on 09/29/17at 08:09 ; Start 09/28/17 at 09:00 Methylprednisolone Sodium Succinate (SOLU-Medrol 40MG VIAL) 40 mg DAILY IV Last administered on 09/29/17at 08:09; Start 09/29/17 at 09:00 Digoxin (Lanoxin) 500 mcg 1X ONCE IV Last administered on 09/29/17at 06:17; Start 09/29/17 at 06:00; Stop 09/29/17 at 06:02; Status DC Esmolol HCl 250 ml @ 0 mls/hr CONT PRN IV SEE I/O RECORD Last administered on at 08:00; Start 09/29/17 at 07:45 Guaifenesin (Mucinex Er) 600 mg BID PO ; Start 09/29/17 at 09:00 Active Scripts Active Reported Tessalon Perle (Benzonatate) 100 Mg Capsule 100 Mg PO TID PRN Cetirizine Hcl 10 Mg Tablet 10 Mg PO DAILY Centrum Adults Tablet (Multivitamin/Iron/Folic Acid) 1 Each Tablet 1 Each PO DAILY Aspirin 81 Mg Tab.chew 81 Mg PO DAILY Vitamin D (Cholecalciferol (Vitamin D3)) 2,000 Unit Capsule 2,000 Unit PO DAILY Flecainide Acetate 100 Mg Tablet 50 Mg PO BID Methotrexate (Methotrexate Sodium) 2.5 Mg Tablet 6 Tab PO WEEKLY weekly on Tuesdays Folic Acid 1 Mg Tablet 1 Mg PO DAILY Nabumetone 750 Mg Tablet 750 Mg PO DAILY Toprol Xl (Metoprolol Succinate) 25 Mg Tab.er.24h 25 Mg PO DAILY Allergies: Coded Allergies: No Known Drug Allergies (Unverified , 09/26/17) Review of System as per HPI General: Alert, Oriented X3, Cooperative, No acute distress HEENT: Atraumatic, EOMI, Mucous membr. moist/pink Lungs: Other (decreased bases otherwise clear) Heart: Other (irregular rate and rhythm, no gallops, clicks or rubs) Abdomen: Normal bowel sounds, Soft, No tenderness Extremities: No cyanosis, Normal pulses, Other (no significant edema) Neuro: Normal speech, Strength at 5/5 X4 ext Psych/Mental Status: Mental status NL, Mood NL VITALS Vital Signs Date Time Temp Pulse Resp B/P (MAP) Pulse Ox O2 Delivery O2 Flow Rate FiO2 09/29/17 08:18 26 95 Nasal Cannula 2.0 09/29/17 07:24 98.1 09/29/17 07:03 160 156/76 Labs Laboratory Tests Test 09/28/17 05:45 09/29/17 06:32 White Blood Count 27.3 x10^3/uL (4.0-11.0) 22.0 x10^3/uL (4.0-11.0) Red Blood Count 3.70 x10^6/uL (3.50-5.40) 3.86 x10^6/uL (3.50-5.40) Hemoglobin 12.0 g/dL (12.0-15.5) 12.5 g/dL (12.0-15.5) Hematocrit 36.1 % (36.0-47.0) 38.2 % (36.0-47.0) Mean Corpuscular Volume 98 fL (79-100) 99 fL (79-100) Mean Corpuscular Hemoglobin 33 pg (25-35) 32 pg (25-35) Mean Corpuscular Hemoglobin Concent 33 g/dL (31-37) 33 g/dL (31-37) Red Cell Distribution Width 14.5 % (11.5-14.5) 14.7 % (11.5-14.5) Platelet Count 237 x10^3/uL (140-400) 280 x10^3/uL (140-400) Neutrophils (%) (Auto) 87 % (31-73) 81 % (31-73) Lymphocytes (%) (Auto) 8 % (24-48) 12 % (24-48) Monocytes (%) (Auto) 5 % (0-9) 6 % (0-9) Eosinophils (%) (Auto) 0 % (0-3) 0 % (0-3) Basophils (%) (Auto) 0 % (0-3) 0 % (0-3) Neutrophils # (Auto) 23.8 x10^3uL (1.8-7.7) 17.9 x10^3uL (1.8-7.7) Lymphocytes # (Auto) 2.1 x10^3/uL (1.0-4.8) 2.6 x10^3/uL (1.0-4.8) Monocytes # (Auto) 1.5 x10^3/uL (0.0-1.1) 1.4 x10^3/uL (0.0-1.1) Eosinophils # (Auto) 0.0 x10^3/uL (0.0-0.7) 0.0 x10^3/uL (0.0-0.7) Basophils # (Auto) 0.0 x10^3/uL (0.0-0.2) 0.1 x10^3/uL (0.0-0.2) Segmented Neutrophils % 85 % (35-66) Band Neutrophils % 1 % (0-9) Lymphocytes % 9 % (24-48) Monocytes % 5 % (0-10) Toxic Granulation Slight Toxic Vacuolation Slight Dohle Bodies Present Platelet Estimate Adequate (ADEQUATE) Platelet Clumps, EDTA Present Large Platelets Occ Giant Platelets Occ Polychromasia Slight Basophilic Stippling Present Anisocytosis Slight Sodium Level 140 mmol/L (136-145) 141 mmol/L (136-145) Potassium Level 4.4 mmol/L (3.5-5.1) 4.3 mmol/L (3.5-5.1) Chloride Level 106 mmol/L (98-107) 105 mmol/L (98-107) Carbon Dioxide Level 27 mmol/L (21-32) 25 mmol/L (21-32) Anion Gap 7 (6-14) 11 (6-14) Blood Urea Nitrogen 23 mg/dL (7-20) 27 mg/dL (7-20) Creatinine 0.8 mg/dL (0.6-1.0) 0.8 mg/dL (0.6-1.0) Estimated GFR (Cockcroft-Gault) 69.7 69.7 Glucose Level 121 mg/dL (70-99) 97 mg/dL (70-99) Calcium Level 9.6 mg/dL (8.5-10.1) 9.7 mg/dL (8.5-10.1) Creatine Kinase 248 U/L (26-192) Troponin I Quantitative < 0.017 ng/mL (0-0.055) Images EKG - atrial fibrillation, LAD, nonspecific st/t abn CXR - Impression: 1. Interval worsening of right upper lobe and to lesser degree left frontal lobe infiltrates concerning for pneumonia 2. Trace bilateral pleural effusions Assessment/Plan 1. paroxysmal atrial fibrillation with RVR - likely exacerbated by bronchitis/ pneumonia. Managed by Dr Brunner with flecanide and aspirin. Will check echo for LV function and to rule out structural abnormalities. Request records from [facility]. Currently improved rate control with digoxin and on esmolol drip. [id number] = 3 which would indicate need for anticoagulation. Discussed stroke risk with patient. Will continue aspirin only at this time due to history of recurrent hematuria with anticoagulation. Increase oral rate control as tolerated. 2. pneumonia - abx, steroids, resp tx as per PCP 3. UTI - per PCP She has follow up scheduled with Dr Brunner on October 15. 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
[2017-09-29] MEDS ORDERED: METHOTREXATE SODIUM 2.5 MG TABLET PO SCH (09:00)
[2017-09-29] MEDS: MELOXICAM 15 MG TABLET. PO SCH (09:48)
[2017-09-29 10:32] LABS: WHITE BLOOD COUNT 27.3 x10^3/uL (4.0-11.0)
--- NOTE | 2017-09-29 10:34 | NUR ---
NSG NOTE; A FIB RVR I SPOKE WITH DEREK ROBLES AT 0745 AND UPDATED HER ON THE PT'S CONTINUED AFIB WITH RVR SHE ORDERED A ESMOLOL DRIP WHICH WAS STARTED AT 0805. VS Q5 MINUTES INITIATED WITH DRIP-SEE VS FLOW SHEET. BP WAS STABLE AND THE DRIP WAS TITRATED UNTIL 0934 WHEN THE PT CONVERTED TO NSR. THE DRIP WAS STOPPED AT 0939 AND SHE IS STILL IN NSR AT 68 BPM AT THIS TIME-1034.
--- NOTE | 2017-09-29 16:40 | CARD ---
MR#: [id number] Date of Study: 09/29/2017 Ordering Physician: DEREK TREADWELL, Referring Physician: HERBERT ZUNIGA, Tech: MANI Duran APPROVED REPORT EXAM: Two-dimensional and M-mode echocardiogram with Doppler and color Doppler. Other Information Quality : Average INDICATION Atrial Fibrillation 2D DIMENSIONS Left Atrium(2D)4.4 (1.6-4.0cm)IVSd1.1 (0.7-1.1cm) Aortic Root(2D)3.3 (2.0-3.7cm)LVDd5.5 (3.9-5.9cm) LVOT Diameter2.1 (1.8-2.4cm)PWd1.0 (0.7-1.1cm) LVDs3.9 (2.5-4.0cm)FS (%) 28.0 % LVEF(%)65.0 (>50%) Aortic Valve AoV Peak Jose.190.0cm/Daniel Peak GR.14.4mmHg LVOT Peak Jose.110.4cm/sAVA (VMAX)2.00cm2 Mitral Valve MV E Ikiyegmj796.5cm/sMV DECEL [id number] MV A Udhjqvca70.5cm/sMV [id number] E/A Ratio1.4MVA (PHT)3.69cm2 Tricuspid Valve TR P. Ljpncxws608fh/sRAP [id number] TR Peak Gr.[id number] LEFT VENTRICLE The left ventricle is normal size. There is normal left ventricular wall thickness. The left ventricu lar systolic function is normal. The Ejection Fraction is 60-65%. There is normal LV segmental wall m otion. RIGHT VENTRICLE The right ventricle is normal size. There is normal right ventricular wall thickness. The right ventr icular systolic function is normal. ATRIA The left atrium is mildly dilated. The right atrium size is normal. The interatrial septum is intact with no evidence for an atrial septal defect or patent foramen ovale as noted on 2-D or Doppler imagi ng. AORTIC VALVE The aortic valve is trileaflet. The aortic valve is mildly to moderately sclerotic. There is no signi ficant aortic valvular stenosis. MITRAL VALVE There is no evidence of mitral valve prolapse. There is no mitral valve stenosis. Doppler and Color-f low revealed mild mitral regurgitation. TRICUSPID VALVE Doppler and Color Flow revealed trace to mild tricuspid regurgitation. The PASP is 41mmHg. PULMONIC VALVE The pulmonic valve is not well visualized. Doppler and Color Flow revealed trace to mild pulmonic hanna vular regurgitation. There is no pulmonic valvular stenosis. GREAT VESSELS The aortic root is normal in size. The ascending aorta is mildly dilated. The IVC is normal in size a nd collapses >50% with inspiration. PERICARDIAL EFFUSION There is no pleural effusion. There is no evidence of significant pericardial effusion. Critical Notification Critical Value: No <Conclusion> The left ventricular systolic function is normal. The Ejection Fraction is 60-65%. There is normal LV segmental wall motion. Mild mitral regurgitation. Trace to mild tricuspid regurgitation. The PASP is 41mmHg. There is no evidence of significant pericardial effusion. Signed by : Dave Garcia, Electronically Approved : 09/29/2017 16:39:36
--- NOTE | 2017-09-29 16:41 | EKG ---
[address] [address] Test Date: 2017-09-29 Test Time: 16:16:18 Pat Name: JACY COLON Department: Room: [facility] 1 Gender: F Tuna Purse Seiner: WALLY : 1940 Requested By: DEREK TREADWELL Order Number: [id number] Reading MD: Measurements Intervals [place] Rate: 64 P: 40 FL: 146 QRS: -14 QRSD: 96 T: 1 QT: 388 QTc: 404 Interpretive Statements SINUS RHYTHM LEFT ATRIAL ABNORMALITY LEFTWARD AXIS ABNORMAL ECG RI6.01 No previous ECG available for comparison
[2017-09-29] MEDS: cefTRIAXone IV Push 1 GM VIAL. IVP SCH (20:51)
--- NOTE | 2017-09-29 22:23 | PN ---
DATE: SUBJECTIVE: The patient transferred to the ICU this morning. The patient went in atrial fibrillation with rapid ventricular response rate of 160. The patient was started on digoxin 500 mcg IV one time and then placed on Brevibloc because her heart rate did not come down. The patient is stable presently, heart rate approximately 115 on Brevibloc. OBJECTIVE: VITAL SIGNS: Blood pressure 150/76, respiratory rate 26, afebrile. The patient did have some mild chest pressure, consulted Cardiology, Dr. Guerrero, responded immediately and gave orders. GENERAL: Otherwise, the patient is alert and oriented. LUNGS: Diminished throughout, markedly improved. CARDIOVASCULAR: ____ rhythm. ABDOMEN: Soft, nontender. EXTREMITIES: No clubbing, cyanosis, edema. NEUROLOGIC: Stable. LABORATORY DATA: Pending from this morning. White count still elevated at 22,000. CPK elevated, but the troponin is negative. PLAN: We will continue to monitor the patient and accordingly make further evaluation on her in the ICU. IMPRESSION: Atrial fibrillation with rapid ventricular response, acute respiratory distress as well as pneumonia, acute bronchitis, acute exacerbation of chronic obstructive pulmonary disease. PLAN: As above, continue to monitor here in the ICU. ICU status. HERBERT ZUNIGA MD DR: BERTA/eugene JOB#: [id number] / [id number]
[2017-09-30] MEDS: IPRATRPIUM/ALBUTEROL 0.5/2.5MG 3 ML NEBU. NEB SCH ×4 (05:26→22:14)
[2017-09-30 06:05] VITALS: BP 140/57
[2017-09-30 08:12] LABS: BASO # 0.1 x10^3/uL (0.0-0.2); BASO % 1 % (0-3); EOS # 0.1 x10^3/uL (0.0-0.7); EOS % 1 % (0-3); HEMATOCRIT 33.7 % (36.0-47.0); HEMOGLOBIN 11.2 g/dL (12.0-15.5); LYMPH # 3.1 x10^3/uL (1.0-4.8); LYMPH % 21 % (24-48); MEAN CORPUSCULAR HEMOGLOBIN 32 pg (25-35); MEAN CORPUSCULAR HGB CONC 33 g/dL (31-37); MEAN CORPUSCULAR VOLUME 98 fL (79-100); MONO # 0.9 x10^3/uL (0.0-1.1); MONO % 6 % (0-9); NEUT # 10.9 x10^3uL (1.8-7.7); NEUT % 72 % (31-73); PLATELET COUNT 235 x10^3/uL (140-400); RED BLOOD COUNT 3.45 x10^6/uL (3.50-5.40); RED CELL DISTRIBUTION WIDTH 14.8 % (11.5-14.5)
[2017-09-30 08:30] LABS: CALCIUM 9.1 mg/dL (8.5-10.1); CREATININE 0.7 mg/dL (0.6-1.0); GFR 81.4; POTASSIUM 4.1 mmol/L (3.5-5.1)
--- NOTE | 2017-09-30 08:40 | PDOC ---
PROGRESS NOTES Diagnosis Problem Problems Medical Problems: (1) COPD exacerbation Status: Acute Assessment Problems Medical Problems: (1) COPD exacerbation Status: Acute 1. paroxysmal atrial fibrillation with RVR - likely exacerbated by bronchitis/ pneumonia now sinus rhythm. Managed by Dr Brunner with flecanide and aspirin, will continue same. Echo revealed normal LV function and MPI at with normal perfusion previously. [id number] = 3 which would indicate need for anticoagulation however has been on aspirin only due to recurrent hematuria on Pradaxa and Xarelto. 2. pneumonia - abx, steroids, resp tx per PCP 3. UTI - per PCP No further cardiac workup indicated. 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 Problems: Subjective feeling better and would like to go home. no palpitations, no chest pain, remains sinus rhythm Objective Vital Signs Date Time Temp Pulse Resp B/P (MAP) Pulse Ox O2 Delivery O2 Flow Rate FiO2 09/30/17 06:05 97.7 61 20 140/57 (84) 93 Room Air 09/29/17 08:18 2.0 Intake and Output 09/30/17 07:00 Intake Total 1730 ml Output Total 2300 ml Balance -570 ml Intake Oral 1730 ml Output Urine Total 2300 ml # Voids 1 Abdomen: Normal bowel sounds, Soft Heart: Regular rate, Normal S1, Normal S2 Extremities: No cyanosis, No edema General: Alert, Oriented X3, Cooperative Lungs: Other (decreased bases) Neuro: Normal speech Psych/Mental Status: Mental status NL, Mood NL Review of Relevant I have reviewed the following items palomo (where applicable) has been applied. Labs Laboratory Tests Test 09/29/17 06:32 09/30/17 07:27 09/30/17 08:05 White Blood Count 22.0 x10^3/uL (4.0-11.0) 15.0 x10^3/uL (4.0-11.0) Red Blood Count 3.86 x10^6/uL (3.50-5.40) 3.45 x10^6/uL (3.50-5.40) Hemoglobin 12.5 g/dL (12.0-15.5) 11.2 g/dL (12.0-15.5) Hematocrit 38.2 % (36.0-47.0) 33.7 % (36.0-47.0) Mean Corpuscular Volume 99 fL (79-100) 98 fL (79-100) Mean Corpuscular Hemoglobin 32 pg (25-35) 32 pg (25-35) Mean Corpuscular Hemoglobin Concent 33 g/dL (31-37) 33 g/dL (31-37) Red Cell Distribution Width 14.7 % (11.5-14.5) 14.8 % (11.5-14.5) Platelet Count 280 x10^3/uL (140-400) 235 x10^3/uL (140-400) Neutrophils (%) (Auto) 81 % (31-73) 72 % (31-73) Lymphocytes (%) (Auto) 12 % (24-48) 21 % (24-48) Monocytes (%) (Auto) 6 % (0-9) 6 % (0-9) Eosinophils (%) (Auto) 0 % (0-3) 1 % (0-3) Basophils (%) (Auto) 0 % (0-3) 1 % (0-3) Neutrophils # (Auto) 17.9 x10^3uL (1.8-7.7) 10.9 x10^3uL (1.8-7.7) Lymphocytes # (Auto) 2.6 x10^3/uL (1.0-4.8) 3.1 x10^3/uL (1.0-4.8) Monocytes # (Auto) 1.4 x10^3/uL (0.0-1.1) 0.9 x10^3/uL (0.0-1.1) Eosinophils # (Auto) 0.0 x10^3/uL (0.0-0.7) 0.1 x10^3/uL (0.0-0.7) Basophils # (Auto) 0.1 x10^3/uL (0.0-0.2) 0.1 x10^3/uL (0.0-0.2) Sodium Level 141 mmol/L (136-145) 140 mmol/L (136-145) Potassium Level 4.3 mmol/L (3.5-5.1) 4.1 mmol/L (3.5-5.1) Chloride Level 105 mmol/L (98-107) 105 mmol/L (98-107) Carbon Dioxide Level 25 mmol/L (21-32) 30 mmol/L (21-32) Anion Gap 11 (6-14) 5 (6-14) Blood Urea Nitrogen 27 mg/dL (7-20) 21 mg/dL (7-20) Creatinine 0.8 mg/dL (0.6-1.0) 0.7 mg/dL (0.6-1.0) Estimated GFR (Cockcroft-Gault) 69.7 81.4 Glucose Level 97 mg/dL (70-99) 90 mg/dL (70-99) Calcium Level 9.7 mg/dL (8.5-10.1) 9.1 mg/dL (8.5-10.1) Creatine Kinase 248 U/L (26-192) Troponin I Quantitative < 0.017 ng/mL (0-0.055) Glucose (Fingerstick) 80 mg/dL (70-99) Microbiology 09/26/17 Blood Culture - Preliminary, Resulted NO GROWTH AFTER 3 DAYS 09/27/17 Urine Culture - Final, Complete 09/27/17 Urine Culture Result 1 (JAMES) - Final, Complete Medications Current Medications Aspirin (Children'S Aspirin) 324 mg 1X ONCE PO Last administered on 09/27/17at 00:57; Start 09/27/17 at 00:45; Stop 09/27/17 at 00:46; Status DC Lactated Ringer's 1,000 ml @ 100 mls/hr Q10H IV Last administered on at 03:10; Start 09/27/17 at 00:30; Stop 09/27/17 at 10:29; Status DC Methylprednisolone Sodium Succinate (SOLU-Medrol 125MG VIAL) 125 mg 1X ONCE IV Last administered on 09/27/17at 00:57; Start 09/27/17 at 00:45; Stop 09/27/17 at 00:46; Status DC Azithromycin (Zithromax) 500 mg 1X ONCE PO Last administered on 09/27/17at 00: 57; Start 09/27/17 at 00:45; Stop 09/27/17 at 00:46; Status DC Albuterol/ Ipratropium (Duoneb) 3 ml 1X ONCE NEB Last administered on at 23:50; Start 09/27/17 at 00:00; Stop 09/27/17 at 00:34; Status DC Ceftriaxone Sodium 1 gm/ Sodium Chloride 50 ml @ 100 mls/hr 1X ONCE IV ; Start 09/27/17 at 00:00; Stop 09/27/17 at 00:29; Status UNV Ceftriaxone Sodium (Rocephin) 1 gm ONCE ONCE IVP Last administered on at 00:56; Start 09/27/17 at 00:45; Stop 09/27/17 at 00:46; Status DC Albuterol/ Ipratropium (Duoneb) 3 ml 1X ONCE NEB Last administered on at 00:58; Start 09/27/17 at 00:45; Stop 09/27/17 at 01:49; Status DC Acetaminophen/ Codeine Phosphate (Tylenol #3) 1 tab 1X ONCE PO Last administered on 09/27/17at 01:18; Start 09/27/17 at 00:45; Stop 09/27/17 at 01:49 ; Status DC Iohexol (Omnipaque 300 Mg/ml) 75 ml 1X ONCE IV Last administered on 09/27/17at 02:38; Start 09/27/17 at 02:00; Stop 09/27/17 at 02:01; Status DC Ondansetron HCl (Zofran) 4 mg PRN Q4HRS PRN IV NAUSEA/VOMITING; Start 09/27/17 at 01:45; Stop 09/28/17 at 01:44; Status DC Albuterol/ Ipratropium (Duoneb) 3 ml RTQID NEB Last administered on 09/27/17at 10:25; Start 09/27/17 at 08:00; Stop 09/27/17 at 10:54; Status DC Methylprednisolone Sodium Succinate (SOLU-Medrol 125MG VIAL) 125 mg DAILY IV Last administered on 09/28/17at 08:22; Start 09/27/17 at 09:00; Stop 09/28/17 at 13:19; Status DC Azithromycin (Zithromax) 250 mg DAILY PO ; Start 09/27/17 at 09:00; Status Cancel Ceftriaxone Sodium 1 gm/ Sodium Chloride 50 ml @ 100 mls/hr DAILY IV ; Start at 09:00; Status UNV Acetaminophen/ Codeine Phosphate (Tylenol #3) 1 tab PRN QID PRN PO for severe coughing episodes Last administered on 09/29/17at 20:50; Start 09/27/17 at 01:45 Enoxaparin Sodium (Lovenox 80mg Syringe) 80 mg BID SQ Last administered on 09/27at 09:27; Start 09/27/17 at 09:00; Stop 09/27/17 at 11:34; Status DC Furosemide (Lasix) 20 mg 1X ONCE IVP Last administered on 09/27/17at 03:09; Start 09/27/17 at 02:00; Stop 09/27/17 at 02:01; Status DC Magnesium Sulfate 50 ml @ 25 mls/hr 1X ONCE IV Last administered on 09/27/17at 03:09; Start 09/27/17 at 02:00; Stop 09/27/17 at 03:59; Status DC Ceftriaxone Sodium (Rocephin) 1 gm Q24H IVP ; Start 09/27/17 at 21:00; Status Cancel Pneumococcal Polyvalent Vaccine (Pneumovax 23) 0.5 ml ONCE ONCE VAX IM ; Start 09/28/17 at 09:00; Stop 09/28/17 at 09:01; Status UNV Pneumococcal Polyvalent Vaccine (Pneumovax 23) 0.5 ml ONCE ONCE VAX IM ; Start 09/27/17 at 09:00; Stop 09/27/17 at 09:47; Status DC Pneumococcal Polyvalent Vaccine (Do NOT chart on this entry -- for MONITORING) 1 each PRN 1X PRN MC SEE COMMENTS; Start 09/27/17 at 05:45; Status Cancel Potassium Chloride (Klor-Con) 40 meq 1X ONCE PO Last administered on at 06:13; Start 09/27/17 at 06:00; Stop 09/27/17 at 06:01; Status DC Lactobacillus Rhamnosus (Culturelle) 1 cap BID PO Last administered on 20:49; Start 09/27/17 at 09:00 Aspirin (Children'S Aspirin) 81 mg DAILY PO Last administered on 09/29/17 06: 56; Start 09/27/17 at 09:00 Benzonatate (Tessalon Perle) 100 mg PRN TID PRN PO COUGH Last administered on 20:49; Start 09/27/17 at 08:30 Cetirizine HCl (ZyrTEC) 10 mg DAILY PO Last administered on 09/29/17 08:10; Start 09/27/17 at 09:00 Folic Acid (Folic Acid) 1 mg DAILY PO Last administered on 09/29/17 08:10; Start 09/27/17 at 09:00 Methotrexate (Rheumatrex) 15 mg WEEKLY PO ; Start 09/27/17 at 09:00; Status Cancel Metoprolol Succinate (Toprol Xl) 25 mg DAILY PO Last administered on 09/29/17 07:03; Start 09/27/17 at 09:00 Vitamin D (Vitamin D3) 2,000 unit DAILY PO Last administered on 09/29/17 08:10 ; Start 09/27/17 at 09:00 Flecainide Acetate (Tambocor) 50 mg BID PO Last administered on 09/29/17 20:50 ; Start 09/27/17 at 09:00 Multivitamins/ Calcium (Thera-M Plus) 1 tab DAILY PO Last administered on 08:11; Start 09/27/17 at 09:00 Meloxicam (Mobic) 15 mg DAILY PO Last administered on 09/29/17 09:48; Start at 09:00 Ceftriaxone Sodium 1 gm/ Sodium Chloride 50 ml @ 100 mls/hr Q24H IV ; Start at 08:30; Status UNV Azithromycin (Zithromax) 250 mg DAILY PO Last administered on 09/29/17 08:11; Start 09/27/17 at 09:00 Ceftriaxone Sodium (Rocephin) 1 gm Q24H IVP Last administered on 09/29/17 20: 51; Start 09/27/17 at 21:00 Methotrexate (Rheumatrex) 15 mg WEEKLY PO Last administered on 09/29/17 08:14 ; Start 09/29/17 at 09:00 Pneumococcal Polyvalent Vaccine (Pneumovax 23) 0.5 ml ONCE ONCE VAX IM Last administered on 09/27/17 20:40; Start 09/28/17 at 09:00; Stop 09/28/17 at 09:01 ; Status DC Albuterol/ Ipratropium (Duoneb) 3 ml RTQID NEB Last administered on 09/30/17at 05:26; Start 09/27/17 at 12:00 Info (Non-Icu Electrolyte Protocol) 1 ea CONT PRN PRN MC PER PROTOCOL; Start at 11:00 Enoxaparin Sodium (Lovenox) 40 mg DAILY SQ Last administered on 09/29/17at 08:09 ; Start 09/28/17 at 09:00 Methylprednisolone Sodium Succinate (SOLU-Medrol 40MG VIAL) 40 mg DAILY IV Last administered on 09/29/17at 08:09; Start 09/29/17 at 09:00 Digoxin (Lanoxin) 500 mcg 1X ONCE IV Last administered on 09/29/17at 06:17; Start 09/29/17 at 06:00; Stop 09/29/17 at 06:02; Status DC Esmolol HCl 250 ml @ 0 mls/hr CONT PRN IV SEE I/O RECORD Last administered on at 08:00; Start 09/29/17 at 07:45 Guaifenesin (Mucinex Er) 600 mg BID PO Last administered on 09/29/17at 20:50; Start 09/29/17 at 09:00 Active Scripts Active Reported Tessalon Perle (Benzonatate) 100 Mg Capsule 100 Mg PO TID PRN LAST DOSE GIVEN: DATE: TIME: NEXT DOSE DUE: DATE: TIME: Cetirizine Hcl 10 Mg Tablet 10 Mg PO DAILY LAST DOSE GIVEN: DATE: TIME: NEXT DOSE DUE: DATE: TIME: Centrum Adults Tablet (Multivitamin/Iron/Folic Acid) 1 Each Tablet 1 Each PO DAILY LAST DOSE GIVEN: DATE: TIME: NEXT DOSE DUE: DATE: TIME: Aspirin 81 Mg Tab.chew 81 Mg PO DAILY LAST DOSE GIVEN: DATE: TIME: NEXT DOSE DUE: DATE: TIME: Vitamin D (Cholecalciferol (Vitamin D3)) 2,000 Unit Capsule 2,000 Unit PO DAILY LAST DOSE GIVEN: DATE: TIME: NEXT DOSE DUE: DATE: TIME: Flecainide Acetate 100 Mg Tablet 50 Mg PO BID LAST DOSE GIVEN: DATE: TIME: NEXT DOSE DUE: DATE: TIME: Methotrexate (Methotrexate Sodium) 2.5 Mg Tablet 6 Tab PO WEEKLY WEEKLY ON THURSDAY LAST DOSE GIVEN: DATE: TIME: NEXT DOSE DUE: DATE: TIME: Folic Acid 1 Mg Tablet 1 Mg PO DAILY LAST DOSE GIVEN: DATE: TIME: NEXT DOSE DUE: DATE: TIME: Nabumetone 750 Mg Tablet 750 Mg PO DAILY LAST DOSE GIVEN: DATE: TIME: NEXT DOSE DUE: DATE: TIME: Toprol Xl (Metoprolol Succinate) 25 Mg Tab.er.24h 25 Mg PO DAILY LAST DOSE GIVEN: DATE: TIME: NEXT DOSE DUE: DATE: TIME: Vitals/I & O Vital Sign - Last 24 Hours 09/29/17 09/29/17 09/29/17 09/29/17 08:45 08:50 08:55 09:00 Pulse 124 120 112 114 B/P (MAP) 104/63 (77) 101/63 (76) 111/66 (81) 87/68 (74) 09/29/17 09/29/17 09/29/17 09/29/17 09:05 09:10 09:15 09:20 Pulse 114 112 114 114 B/P (MAP) 104/66 (79) 108/71 (83) 113/58 (76) 112/68 (83) 09/29/17 09/29/17 09/29/17 09/29/17 09:20 09:25 09:30 09:35 Pulse 122 70 66 B/P (MAP) 106/70 (82) 109/54 (72) 103/53 (70) Pulse Ox 93 O2 Delivery Room Air 09/29/17 09/29/17 09/29/17 09/29/17 09:40 09:45 10:00 10:15 Pulse 62 64 70 66 B/P (MAP) 111/62 (78) 114/62 (79) 120/61 (80) 118/62 (80) 09/29/17 09/29/17 09/29/17 09/29/17 11:41 11:49 12:15 13:15 Temp 98.3 Pulse 62 64 62 B/P (MAP) 111/59 (76) 109/61 (77) 95/49 (64) Pulse Ox 92 92 O2 Delivery Room Air Room Air Room Air 09/29/17 09/29/17 09/29/17 09/29/17 14:15 14:56 15:15 15:19 Pulse 64 66 66 B/P (MAP) 93/47 (62) 114/55 (74) 110/58 (75) Pulse Ox 91 92 95 95 O2 Delivery Room Air Room Air Room Air Room Air 09/29/17 09/29/17 09/29/17 09/29/17 16:15 17:14 17:56 19:16 Temp 98.1 Pulse 64 60 58 Resp 20 20 B/P (MAP) 119/58 (78) 119/65 (83) 138/66 (90) Pulse Ox 93 92 95 O2 Delivery Room Air Room Air Room Air 09/29/17 09/29/17 09/29/17 09/29/17 19:25 20:50 20:50 21:35 Pulse 62 Resp 18 B/P (MAP) 138/66 Pulse Ox 95 95 O2 Delivery Room Air Room Air Room Air 09/29/17 09/29/17 09/29/17 09/30/17 22:18 22:52 23:09 00:06 Pulse 73 65 Resp 18 18 B/P (MAP) 152/75 (100) 132/59 (83) Pulse Ox 93 93 94 O2 Delivery Room Air Room Air Room Air Room Air 09/30/17 09/30/17 09/30/17 04:11 05:10 06:05 Temp 97.7 Pulse 61 Resp 20 B/P (MAP) 140/57 (84) Pulse Ox 96 93 O2 Delivery Room Air Room Air Room Air Intake and Output 09/29/17 09/29/17 09/30/17 15:00 23:00 07:00 Intake Total 120 ml 1240 ml 370 ml Output Total 400 ml 1000 ml 900 ml Balance -280 ml 240 ml -530 ml DEREK TREADWELL APRN Sep 30, 2017 08:40
[2017-09-30] MEDS: FLECAINIDE 50 MG TABLET. PO SCH ×2 (08:43→20:28)
[2017-09-30] MEDS: AZITHROMYCIN 250 MG TABLET. PO SCH (08:43)
[2017-09-30] MEDS: CETIRIZINE HCL 10 MG TABLET PO SCH (08:43)
[2017-09-30] MEDS: CHOLECALCIFEROL (VITAMIN D3) 1,000 UNIT TABLET PO SCH (08:44)
[2017-09-30] MEDS: METOPROLOL SUCC 24HR ER 25 MG TAB.ER.24H. PO SCH (08:44)
[2017-09-30] MEDS: MULTIVITAMIN with MINERAL TABLET. PO SCH (08:45)
[2017-09-30] MEDS: FOLIC ACID 1 MG TABLET PO SCH (08:45)
[2017-09-30] MEDS: MELOXICAM 15 MG TABLET. PO SCH (08:45)
[2017-09-30] MEDS: ASPIRIN 81 MG TAB.CHEW PO SCH (08:45)
[2017-09-30] MEDS: methylPREDNISolone SOD SUCC PF 40 MG/ML VIAL. IV SCH (08:46)
[2017-09-30] MEDS: ENOXAPARIN 40 MG/0.4 ML DISP.SYRIN. SQ SCH (08:49)
[2017-09-30] MEDS: LACTOBACILLUS RHAMNOSUS GG 1 CAPSULE. PO SCH ×2 (08:51→20:28)
--- NOTE | 2017-09-30 11:37 | NUR ---
Pt doing well this morning, states she is feeling much better since yesterday. HR remains stable and controled on Metoprolol and Flecanide. Pt denies pain or discomfort at this time. Will continue on IV ABT for pneumonia, encouraged patient to ambulate throughout halls.
[2017-09-30 16:02] VITALS: BP 134/68
[2017-09-30 19:29] VITALS: BP 116/52
[2017-09-30] MEDS: cefTRIAXone IV Push 1 GM VIAL. IVP SCH (20:28)
[2017-09-30] MEDS: BENZONATATE 100 MG CAPSULE. PO PRN (20:28)
[2017-09-30] MEDS: ACETAMINOPHEN/CODEINE 300/30MG TABLET PO PRN (20:29)
--- NOTE | 2017-09-30 21:59 | PN ---
DATE: SUBJECTIVE: A 77-year-old female in with bilobar pneumonia as well as atrial fibrillation with rapid ventricular response. White count slightly came down to 15,000. She is feeling better. OBJECTIVE: VITAL SIGNS: The patient's blood pressure 150/60, respiratory rate 20, pulse 60, afebrile. GENERAL: The patient is alert and oriented. LUNGS: Diminished, but improved in aeration. CARDIOVASCULAR: Irregularly irregular rhythm but markedly improved. We will continue to be monitored carefully here in the ICU. EXTREMITIES: No clubbing, cyanosis or edema. NEUROLOGIC: Intact. The patient is making good progress overall. IMPRESSION: Pneumonia of unspecified etiology, community acquired, acute exacerbation of chronic obstructive pulmonary disease, acute atrial fibrillation with rapid ventricular response, leukocytosis. PLAN: Continue with IV antibiotic therapy. His last chest x-ray showed some worsening, although clinically she is much much improved. HERBERT ZUNIGA MD DR: BERTA/eugene JOB#: [id number] / [id number]
[2017-09-30 22:14] VITALS: BP 113/57
[2017-10-01 05:07] VITALS: BP 148/56
[2017-10-01] MEDS: IPRATRPIUM/ALBUTEROL 0.5/2.5MG 3 ML NEBU. NEB SCH ×2 (05:35→09:19)
[2017-10-01 06:39] LABS: BASO % 0 % (0-3); EOS # 0.1 x10^3/uL (0.0-0.7); EOS % 1 % (0-3); HEMOGLOBIN 11.3 g/dL (12.0-15.5); LYMPH # 2.9 x10^3/uL (1.0-4.8); LYMPH % 26 % (24-48); MEAN CORPUSCULAR HEMOGLOBIN 33 pg (25-35); MEAN CORPUSCULAR HGB CONC 33 g/dL (31-37); MEAN CORPUSCULAR VOLUME 98 fL (79-100); MONO # 0.6 x10^3/uL (0.0-1.1); MONO % 5 % (0-9); NEUT # 7.6 x10^3uL (1.8-7.7); NEUT % 68 % (31-73); PLATELET COUNT 224 x10^3/uL (140-400); RED BLOOD COUNT 3.47 x10^6/uL (3.50-5.40); RED CELL DISTRIBUTION WIDTH 14.6 % (11.5-14.5); WHITE BLOOD COUNT 11.2 x10^3/uL (4.0-11.0)
[2017-10-01 06:49] LABS: CREATININE 0.8 mg/dL (0.6-1.0); GFR 69.7; POTASSIUM 4.1 mmol/L (3.5-5.1)
[2017-10-01] MEDS: methylPREDNISolone SOD SUCC PF 40 MG/ML VIAL. IV SCH (08:25)
[2017-10-01] MEDS: FOLIC ACID 1 MG TABLET PO SCH (08:26)
[2017-10-01] MEDS: LACTOBACILLUS RHAMNOSUS GG 1 CAPSULE. PO SCH (08:26)
[2017-10-01] MEDS: CETIRIZINE HCL 10 MG TABLET PO SCH (08:26)
[2017-10-01] MEDS: METOPROLOL SUCC 24HR ER 25 MG TAB.ER.24H. PO SCH (08:26)
[2017-10-01] MEDS: ASPIRIN 81 MG TAB.CHEW PO SCH (08:26)
[2017-10-01] MEDS: CHOLECALCIFEROL (VITAMIN D3) 1,000 UNIT TABLET PO SCH (08:26)
[2017-10-01] MEDS: MULTIVITAMIN with MINERAL TABLET. PO SCH (08:26)
[2017-10-01 08:27] VITALS: BP 148/56
[2017-10-01] MEDS: ENOXAPARIN 40 MG/0.4 ML DISP.SYRIN. SQ SCH (08:27)
[2017-10-01] MEDS: FLECAINIDE 50 MG TABLET. PO SCH (08:27)
[2017-10-01] MEDS: MELOXICAM 15 MG TABLET. PO SCH (08:27)
--- NOTE | 2017-10-01 09:18 | PDOC ---
PROGRESS NOTES Diagnosis Problem Problems Medical Problems: (1) COPD exacerbation Status: Acute Assessment Problems Medical Problems: (1) COPD exacerbation Status: Acute 1. paroxysmal atrial fibrillation with RVR - likely exacerbated by bronchitis/ pneumonia now sinus rhythm. Managed by Dr Brunner with flecanide and aspirin, will continue same. Echo revealed normal LV function and MPI at with normal perfusion previously. [id number] = 3 which would indicate need for anticoagulation however has been on aspirin only due to recurrent hematuria on Pradaxa and Xarelto. 2. pneumonia - abx, steroids, resp tx per PCP 3. UTI - per PCP Will sign off, please call with questions or concerns. She is to keep outpatient follow up with Dr Brunner on 10/15. Problems: Subjective no atrial fib, no palpitations, chest pain, cough and dyspnea have improved. She is requesting to go home. Objective Vital Signs Date Time Temp Pulse Resp B/P (MAP) Pulse Ox O2 Delivery O2 Flow Rate FiO2 10/01/17 08:27 70 148/56 10/01/17 05:07 97.6 22 94 Room Air 09/29/17 08:18 2.0 Intake and Output 10/01/17 07:00 Intake Total 1300 ml Balance 1300 ml Intake Oral 1300 ml # Voids 4 Abdomen: Normal bowel sounds, Soft, No tenderness Heart: Regular rate, Normal S1, Normal S2 Extremities: No cyanosis, No edema, Normal pulses General: Alert, Oriented X3, Cooperative, No acute distress HEENT: Atraumatic, EOMI Lungs: Other (no crackles, wheezes or rhonchi, minimally decreased at bases) Neuro: Normal speech, Strength at 5/5 X4 ext Psych/Mental Status: Mental status NL, Mood NL Review of Relevant I have reviewed the following items palomo (where applicable) has been applied. Labs Laboratory Tests Test 09/30/17 07:27 09/30/17 08:05 10/01/17 05:48 10/01/17 05:49 Glucose (Fingerstick) 80 mg/dL (70-99) White Blood Count 15.0 x10^3/uL (4.0-11.0) 11.2 x10^3/uL (4.0-11.0) Red Blood Count 3.45 x10^6/uL (3.50-5.40) 3.47 x10^6/uL (3.50-5.40) Hemoglobin 11.2 g/dL (12.0-15.5) 11.3 g/dL (12.0-15.5) Hematocrit 33.7 % (36.0-47.0) 34.0 % (36.0-47.0) Mean Corpuscular Volume 98 fL (79-100) 98 fL (79-100) Mean Corpuscular Hemoglobin 32 pg (25-35) 33 pg (25-35) Mean Corpuscular Hemoglobin Concent 33 g/dL (31-37) 33 g/dL (31-37) Red Cell Distribution Width 14.8 % (11.5-14.5) 14.6 % (11.5-14.5) Platelet Count 235 x10^3/uL (140-400) 224 x10^3/uL (140-400) Neutrophils (%) (Auto) 72 % (31-73) 68 % (31-73) Lymphocytes (%) (Auto) 21 % (24-48) 26 % (24-48) Monocytes (%) (Auto) 6 % (0-9) 5 % (0-9) Eosinophils (%) (Auto) 1 % (0-3) 1 % (0-3) Basophils (%) (Auto) 1 % (0-3) 0 % (0-3) Neutrophils # (Auto) 10.9 x10^3uL (1.8-7.7) 7.6 x10^3uL (1.8-7.7) Lymphocytes # (Auto) 3.1 x10^3/uL (1.0-4.8) 2.9 x10^3/uL (1.0-4.8) Monocytes # (Auto) 0.9 x10^3/uL (0.0-1.1) 0.6 x10^3/uL (0.0-1.1) Eosinophils # (Auto) 0.1 x10^3/uL (0.0-0.7) 0.1 x10^3/uL (0.0-0.7) Basophils # (Auto) 0.1 x10^3/uL (0.0-0.2) 0.0 x10^3/uL (0.0-0.2) Sodium Level 140 mmol/L (136-145) 141 mmol/L (136-145) Potassium Level 4.1 mmol/L (3.5-5.1) 4.1 mmol/L (3.5-5.1) Chloride Level 105 mmol/L (98-107) 106 mmol/L (98-107) Carbon Dioxide Level 30 mmol/L (21-32) 29 mmol/L (21-32) Anion Gap 5 (6-14) 6 (6-14) Blood Urea Nitrogen 21 mg/dL (7-20) 25 mg/dL (7-20) Creatinine 0.7 mg/dL (0.6-1.0) 0.8 mg/dL (0.6-1.0) Estimated GFR (Cockcroft-Gault) 81.4 69.7 Glucose Level 90 mg/dL (70-99) 87 mg/dL (70-99) Calcium Level 9.1 mg/dL (8.5-10.1) 9.0 mg/dL (8.5-10.1) Microbiology 09/26/17 Blood Culture - Preliminary, Resulted NO GROWTH AFTER 4 DAYS 09/27/17 Urine Culture - Final, Complete 09/27/17 Urine Culture Result 1 (JAMES) - Final, Complete Medications Current Medications Aspirin (Children'S Aspirin) 324 mg 1X ONCE PO Last administered on 09/27/17at 00:57; Start 09/27/17 at 00:45; Stop 09/27/17 at 00:46; Status DC Lactated Ringer's 1,000 ml @ 100 mls/hr Q10H IV Last administered on at 03:10; Start 09/27/17 at 00:30; Stop 09/27/17 at 10:29; Status DC Methylprednisolone Sodium Succinate (SOLU-Medrol 125MG VIAL) 125 mg 1X ONCE IV Last administered on 09/27/17at 00:57; Start 09/27/17 at 00:45; Stop 09/27/17 at 00:46; Status DC Azithromycin (Zithromax) 500 mg 1X ONCE PO Last administered on 09/27/17at 00: 57; Start 09/27/17 at 00:45; Stop 09/27/17 at 00:46; Status DC Albuterol/ Ipratropium (Duoneb) 3 ml 1X ONCE NEB Last administered on at 23:50; Start 09/27/17 at 00:00; Stop 09/27/17 at 00:34; Status DC Ceftriaxone Sodium 1 gm/ Sodium Chloride 50 ml @ 100 mls/hr 1X ONCE IV ; Start 09/27/17 at 00:00; Stop 09/27/17 at 00:29; Status UNV Ceftriaxone Sodium (Rocephin) 1 gm ONCE ONCE IVP Last administered on at 00:56; Start 09/27/17 at 00:45; Stop 09/27/17 at 00:46; Status DC Albuterol/ Ipratropium (Duoneb) 3 ml 1X ONCE NEB Last administered on at 00:58; Start 09/27/17 at 00:45; Stop 09/27/17 at 01:49; Status DC Acetaminophen/ Codeine Phosphate (Tylenol #3) 1 tab 1X ONCE PO Last administered on 09/27/17at 01:18; Start 09/27/17 at 00:45; Stop 09/27/17 at 01:49 ; Status DC Iohexol (Omnipaque 300 Mg/ml) 75 ml 1X ONCE IV Last administered on 09/27/17at 02:38; Start 09/27/17 at 02:00; Stop 09/27/17 at 02:01; Status DC Ondansetron HCl (Zofran) 4 mg PRN Q4HRS PRN IV NAUSEA/VOMITING; Start 09/27/17 at 01:45; Stop 09/28/17 at 01:44; Status DC Albuterol/ Ipratropium (Duoneb) 3 ml RTQID NEB Last administered on 09/27/17at 10:25; Start 09/27/17 at 08:00; Stop 09/27/17 at 10:54; Status DC Methylprednisolone Sodium Succinate (SOLU-Medrol 125MG VIAL) 125 mg DAILY IV Last administered on 09/28/17at 08:22; Start 09/27/17 at 09:00; Stop 09/28/17 at 13:19; Status DC Azithromycin (Zithromax) 250 mg DAILY PO ; Start 09/27/17 at 09:00; Status Cancel Ceftriaxone Sodium 1 gm/ Sodium Chloride 50 ml @ 100 mls/hr DAILY IV ; Start at 09:00; Status UNV Acetaminophen/ Codeine Phosphate (Tylenol #3) 1 tab PRN QID PRN PO for severe coughing episodes Last administered on 09/30/17at 20:29; Start 09/27/17 at 01:45 Enoxaparin Sodium (Lovenox 80mg Syringe) 80 mg BID SQ Last administered on 09/27at 09:27; Start 09/27/17 at 09:00; Stop 09/27/17 at 11:34; Status DC Furosemide (Lasix) 20 mg 1X ONCE IVP Last administered on 09/27/17at 03:09; Start 09/27/17 at 02:00; Stop 09/27/17 at 02:01; Status DC Magnesium Sulfate 50 ml @ 25 mls/hr 1X ONCE IV Last administered on 09/27/17at 03:09; Start 09/27/17 at 02:00; Stop 09/27/17 at 03:59; Status DC Ceftriaxone Sodium (Rocephin) 1 gm Q24H IVP ; Start 09/27/17 at 21:00; Status Cancel Pneumococcal Polyvalent Vaccine (Pneumovax 23) 0.5 ml ONCE ONCE VAX IM ; Start 09/28/17 at 09:00; Stop 09/28/17 at 09:01; Status UNV Pneumococcal Polyvalent Vaccine (Pneumovax 23) 0.5 ml ONCE ONCE VAX IM ; Start 09/27/17 at 09:00; Stop 09/27/17 at 09:47; Status DC Pneumococcal Polyvalent Vaccine (Do NOT chart on this entry -- for MONITORING) 1 each PRN 1X PRN MC SEE COMMENTS; Start 09/27/17 at 05:45; Status Cancel Potassium Chloride (Klor-Con) 40 meq 1X ONCE PO Last administered on at 06:13; Start 09/27/17 at 06:00; Stop 09/27/17 at 06:01; Status DC Lactobacillus Rhamnosus (Culturelle) 1 cap BID PO Last administered on at 08:26; Start 09/27/17 at 09:00 Aspirin (Children'S Aspirin) 81 mg DAILY PO Last administered on 10/01/17at 08: 26; Start 09/27/17 at 09:00 Benzonatate (Tessalon Perle) 100 mg PRN TID PRN PO COUGH Last administered on 20:28; Start 09/27/17 at 08:30 Cetirizine HCl (ZyrTEC) 10 mg DAILY PO Last administered on 10/01/17 08:26; Start 09/27/17 at 09:00 Folic Acid (Folic Acid) 1 mg DAILY PO Last administered on 10/01/17 08:26; Start 09/27/17 at 09:00 Methotrexate (Rheumatrex) 15 mg WEEKLY PO ; Start 09/27/17 at 09:00; Status Cancel Metoprolol Succinate (Toprol Xl) 25 mg DAILY PO Last administered on 10/01/17 08:26; Start 09/27/17 at 09:00 Vitamin D (Vitamin D3) 2,000 unit DAILY PO Last administered on 10/01/17 08:26 ; Start 09/27/17 at 09:00 Flecainide Acetate (Tambocor) 50 mg BID PO Last administered on 10/01/17 08:27 ; Start 09/27/17 at 09:00 Multivitamins/ Calcium (Thera-M Plus) 1 tab DAILY PO Last administered on 08:26; Start 09/27/17 at 09:00 Meloxicam (Mobic) 15 mg DAILY PO Last administered on 10/01/17 08:27; Start at 09:00 Ceftriaxone Sodium 1 gm/ Sodium Chloride 50 ml @ 100 mls/hr Q24H IV ; Start at 08:30; Status UNV Azithromycin (Zithromax) 250 mg DAILY PO Last administered on 09/30/17 08:43; Start 09/27/17 at 09:00; Stop 09/30/17 at 11:05; Status DC Ceftriaxone Sodium (Rocephin) 1 gm Q24H IVP Last administered on 09/30/17 20: 28; Start 09/27/17 at 21:00; Stop 10/01/17 at 08:36; Status DC Methotrexate (Rheumatrex) 15 mg WEEKLY PO Last administered on 09/29/17 08:14 ; Start 09/29/17 at 09:00 Pneumococcal Polyvalent Vaccine (Pneumovax 23) 0.5 ml ONCE ONCE VAX IM Last administered on 09/27/17at 20:40; Start 09/28/17 at 09:00; Stop 09/28/17 at 09:01 ; Status DC Albuterol/ Ipratropium (Duoneb) 3 ml RTQID NEB Last administered on 10/01/17at 05:35; Start 09/27/17 at 12:00 Info (Non-Icu Electrolyte Protocol) 1 ea CONT PRN PRN MC PER PROTOCOL; Start at 11:00 Enoxaparin Sodium (Lovenox) 40 mg DAILY SQ Last administered on 09/30/17at 08:49 ; Start 09/28/17 at 09:00 Methylprednisolone Sodium Succinate (SOLU-Medrol 40MG VIAL) 40 mg DAILY IV Last administered on 10/01/17at 08:25; Start 09/29/17 at 09:00 Digoxin (Lanoxin) 500 mcg 1X ONCE IV Last administered on 09/29/17at 06:17; Start 09/29/17 at 06:00; Stop 09/29/17 at 06:02; Status DC Esmolol HCl 250 ml @ 0 mls/hr CONT PRN IV SEE I/O RECORD Last administered on at 08:00; Start 09/29/17 at 07:45 Guaifenesin (Mucinex Er) 600 mg BID PO Last administered on 10/01/17at 08:22; Start 09/29/17 at 09:00 Levofloxacin/ Dextrose 100 ml @ 100 mls/hr Q24H IV Last administered on at 12:05; Start 09/30/17 at 12:00; Stop 10/01/17 at 08:37; Status DC Cefpodoxime Proxetil (Vantin) 200 mg BID PO ; Start 10/01/17 at 21:00 Levofloxacin (Levaquin) 500 mg DAILY06 PO ; Start 10/01/17 at 12:00 Active Scripts Active Reported Tessalon Perle (Benzonatate) 100 Mg Capsule 100 Mg PO TID PRN LAST DOSE GIVEN: DATE: TIME: NEXT DOSE DUE: DATE: TIME: Cetirizine Hcl 10 Mg Tablet 10 Mg PO DAILY LAST DOSE GIVEN: DATE: TIME: NEXT DOSE DUE: DATE: TIME: Centrum Adults Tablet (Multivitamin/Iron/Folic Acid) 1 Each Tablet 1 Each PO DAILY LAST DOSE GIVEN: DATE: TIME: NEXT DOSE DUE: DATE: TIME: Aspirin 81 Mg Tab.chew 81 Mg PO DAILY LAST DOSE GIVEN: DATE: TIME: NEXT DOSE DUE: DATE: TIME: Vitamin D (Cholecalciferol (Vitamin D3)) 2,000 Unit Capsule 2,000 Unit PO DAILY LAST DOSE GIVEN: DATE: TIME: NEXT DOSE DUE: DATE: TIME: Flecainide Acetate 100 Mg Tablet 50 Mg PO BID LAST DOSE GIVEN: DATE: TIME: NEXT DOSE DUE: DATE: TIME: Methotrexate (Methotrexate Sodium) 2.5 Mg Tablet 6 Tab PO WEEKLY WEEKLY ON THURSDAY LAST DOSE GIVEN: DATE: TIME: NEXT DOSE DUE: DATE: TIME: Folic Acid 1 Mg Tablet 1 Mg PO DAILY LAST DOSE GIVEN: DATE: TIME: NEXT DOSE DUE: DATE: TIME: Nabumetone 750 Mg Tablet 750 Mg PO DAILY LAST DOSE GIVEN: DATE: TIME: NEXT DOSE DUE: DATE: TIME: Toprol Xl (Metoprolol Succinate) 25 Mg Tab.er.24h 25 Mg PO DAILY LAST DOSE GIVEN: DATE: TIME: NEXT DOSE DUE: DATE: TIME: Vitals/I & O Vital Sign - Last 24 Hours 09/30/17 09/30/17 09/30/17 09/30/17 11:45 16:02 16:46 19:29 Temp 98.4 Pulse 51 69 Resp 20 B/P (MAP) 134/68 (90) 116/52 (73) Pulse Ox 98 95 98 94 O2 Delivery Room Air Room Air Room Air Room Air 09/30/17 09/30/17 09/30/17 09/30/17 19:45 20:28 20:29 21:29 Pulse 69 Resp 18 B/P (MAP) 116/52 Pulse Ox 94 96 O2 Delivery Room Air Room Air Room Air 09/30/17 09/30/17 10/01/17 10/01/17 22:14 22:35 04:58 05:07 Temp 97.6 Pulse 65 63 Resp 18 18 22 B/P (MAP) 113/57 (75) 148/56 (86) Pulse Ox 93 93 94 94 O2 Delivery Room Air Room Air Room Air Room Air 10/01/17 10/01/17 08:26 08:27 Pulse 70 70 B/P (MAP) 148/56 148/56 Intake and Output 09/30/17 09/30/17 10/01/17 15:00 23:00 07:00 Intake Total 350 ml 150 ml 800 ml Balance 350 ml 150 ml 800 ml 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
--- NOTE | 2017-10-01 11:39 | RAD ---
2 views of the Chest 10/01/2017 11:26 AM Indication: Pneumonia Comparison: Chest radiograph, September 28, 2017 Findings: Interval improvement in right upper lobe pneumonia in the interim. Calcified granuloma left midlung is stable. Heart size is mildly enlarged but stable. Hiatal hernia again noted. No definitive pleural effusion is seen. No acute osseous changes are noted in the interim. Impression: Interval improvement in right upper lobe infiltrate
[2017-10-01] MEDS ORDERED: levoFLOXacin 500 MG TABLET PO SCH (12:00)
[2017-10-01] MEDS ORDERED: LEVO500T59 PO (12:50)
--- NOTE | 2017-10-01 13:27 | NUR ---
[facility] and discharge home medications reviewed with Patient and a copy given. All questions have been answered and understanding verbalized. The following instructions and handouts were given: education about levaquin, afib, and pneumonia, discharge instuctions Discontinued lines and drains: Peripheral IV intact. Patient discharged to Home or Self Care withFamily Membervia Ambulated
[2017-10-01] MEDS ORDERED: CEFPODOXIME PROXETIL 100 MG TABLET PO SCH (21:00)
== END 2017-10-01 13:35 | disposition home or self-care (01) | DRG 190 ==
LOC: ER 23:43 → ICU 09-27 02:10 → 1 SOUTH 09-27 16:28 → ICU 09-29 06:03
PROVIDERS: ADMIT Family Medicine; ATTEND Family Medicine
DX: J44.0 Chronic obstructive pulmonary disease with (acute) lower respiratory infection (principal); J18.9 Pneumonia, unspecified organism; I48.0 Paroxysmal atrial fibrillation; I50.9 Heart failure, unspecified; N02.9 Recurrent and persistent hematuria with unspecified morphologic changes; M06.9 Rheumatoid arthritis, unspecified; N39.0 Urinary tract infection, site not specified; J44.1 Chronic obstructive pulmonary disease with (acute) exacerbation; J20.9 Acute bronchitis, unspecified; M19.90 Unspecified osteoarthritis, unspecified site; R09.02 Hypoxemia; K44.9 Diaphragmatic hernia without obstruction or gangrene; E89.0 Postprocedural hypothyroidism; F17.210 Nicotine dependence, cigarettes, uncomplicated; I25.10 Atherosclerotic heart disease of native coronary artery without angina pectoris; Z71.6 Tobacco abuse counseling; M47.9 Spondylosis, unspecified
CPT/HCPCS: 36415; 71046; 71275; 80048; 80053; 80076; 80307; 81001; 82550; 82553; 82947; 83605; 83690; 83735; 83880; 84443; 84484; 85007; 85025; 85379; 85610; 85651; 85730; 87040; 87086; 87641; 90732; 93005; 93306; 93970; 94640; 96374; 96375; G0238; J0456; J0696; J1160; J1650; J1940; J1956; J2920; J2930; J3475; J3490; J7120; J7620; J8610; Q9967; 99285-25; G0479

== ENCOUNTER → 2017-10-20 | Outpatient (CLI) | payer MEDICARE, OTHER ==
[2017-10-01 08:27] VITALS: BP 148/56
[~2017-10-20] MED LIST: ASPI-630 PO; BENZ100C PO; CETI10TA16 PO; CHOL2000 PO; FLEC100T PO; FOLI1TAB16 PO; LEVO500T59 PO; METH2.5T PO; METO25TA2 PO; MULT-697 PO; NABU750T PO
== END | disposition home or self-care (01) ==
LOC: LAB 15:09
PROVIDERS: ATTEND Internal Medicine Cardiovascular Disease
DX: I48.0 Paroxysmal atrial fibrillation (principal); E21.3 Hyperparathyroidism, unspecified
CPT/HCPCS: 84443

== ENCOUNTER 2017-12-11 20:50 | Emergency (ER) | payer MEDICARE, OTHER ==
[~2017-12-11] VITALS: Ht 162.6 cm; Wt 83.9 kg
[2017-12-11] MEDS ORDERED: ASPIRIN 81 MG TAB.CHEW PO ONE (21:15)
--- NOTE | 2017-12-11 21:27 | PHYS DOC ---
Past History Past Medical History: A-Fib, Arthritis, CHF, COPD, UTI, Other Past Surgical History: Other Smoking: Cigarettes Alcohol Use: Occasionally Drug Use: None Adult General Chief Complaint Chief Complaint: MULTIPLE COMPLAINTS HPI HPI 77-year-old female presents with chest pressure. The patient has been having chest pressure that starts only in the evening after dinner or just after laying down to go to bed. This is been occurring each evening for 4 days. Usually she will either be sitting down or is just lay down when this chest heaviness 7 out of 10 starts. It radiates into her bilateral shoulders and her jaw. She will get up, walk around, drank some water and it improves. It does not get better or worse with exertion. She presents to the ED today because this pain started one hour after eating [place] food and she has been unable to make it go away. It is still 6 out of 10 with chest heaviness. She denies shortness of breath, but does admit to some diaphoresis. She has not had a stress test in several years. She's never had a cardiac catheter or heart attack. She is normally very active. She walked around all day at [employer] on Thursday with no difficulty or symptoms. She denies fever, chills, cough , congestion, dysuria. Review of Systems Review of Systems Constitutional: Denies fever or chills [] Eyes: Denies change in visual acuity, redness, or eye pain [] HENT: Denies nasal congestion or sore throat [] Respiratory: Denies cough or shortness of breath [] Cardiovascular: No additional information not addressed in HPI [] GI: Denies abdominal pain, nausea, vomiting, bloody stools or diarrhea [] : Denies dysuria or hematuria [] Musculoskeletal: Denies back pain or joint pain [] Integument: Denies rash or skin lesions [] Neurologic: Denies headache, focal weakness or sensory changes [] Endocrine: Denies polyuria or polydipsia [] All other systems were reviewed and found to be within normal limits, except as documented in this note. Current Medications Current Medications Current Medications Medications (Trade) Dose Ordered Sig/Osvaldo Start Time Stop Time Status Last Admin Dose Admin Aspirin (Children'S Aspirin) 324 mg 1X ONCE 12/11/17 21:15 12/11/17 21:16 DC Allergies Allergies Allergies Coded Allergies Type Severity Reaction Last Updated Verified No Known Drug Allergies 09/26/17 No Physical Exam Physical Exam Constitutional: Well developed, well nourished, no acute distress, non-toxic appearance. [] HENT: Normocephalic, atraumatic, bilateral external ears normal, oropharynx moist, no oral exudates, nose normal. [] Eyes: PERRLA, EOMI, conjunctiva normal, no discharge. [] Neck: Normal range of motion, no tenderness, supple, no stridor. [] Cardiovascular:Heart rate regular rhythm, no murmur [] Lungs & Thorax: Bilateral breath sounds clear to auscultation [] Abdomen: Bowel sounds normal, soft, no tenderness, no masses, no pulsatile masses. [] Skin: Warm, dry, no erythema, no rash. [] Back: No tenderness, no CVA tenderness. [] Extremities: No tenderness, no cyanosis, no clubbing, ROM intact, no edema. Hands suggestive of RA[] Neurologic: Alert and oriented X 3, normal motor function, normal sensory function, no focal deficits noted. [] Psychologic: Affect normal, judgement normal, mood normal. [] Current Patient Data Vital Signs Vital Signs Date Time Temp Pulse Resp B/P (MAP) Pulse Ox O2 Delivery O2 Flow Rate FiO2 12/11/17 21:08 98.2 72 18 98 Room Air EKG EKG Sinus rhythm, rate 61, left axis, no ST elevations or depressions.[] Radiology/Procedures Radiology/Procedures [] Impressions: PORTABLE CHEST 1V History: Chest pain Comparison: October 01, 2017 Findings: Single view of the chest is submitted. There is no infiltrate, pneumothorax, or effusion. The pericardial cardiac silhouette is somewhat enlarged although stable. There is moderate size hiatal hernia. There is again opaque likely calcified nodule of the mid to superior left hemithorax. Impression: 1. No acute radiographic abnormality is identified. 2. There is hiatal hernia. Electronically signed by: Clara Covarrubias MD (12/11/2017 9:35 PM) [facility] DICTATED AND SIGNED BY: CLARA COVARRUBIAS MD DATE: 12/11/17 [id number] CC: MIKEY DEL CID DO; HERBERT ZUNIGA MD ~ Course & Med Decision Making Course & Med Decision Making Pertinent Labs and Imaging studies reviewed. (See chart for details) The patient's labs are significant for elevated troponin of 1.492. Her EKG does not show ST elevation. The rest for labs are unremarkable. The patient is having an NSTEMI. 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 I discussed the case with and Dr. Valdez has accepted the patient for transfer. He has requested heparin bolus and drip be started. These have been ordered. She will be transported by ambulance. [] Dragon Disclaimer Dragon Disclaimer This electronic medical record was generated, in whole or in part, using a voice recognition dictation system. Departure Departure: Referrals: HERBERT ZUNIGA MD (PCP) MIKEY DEL CID DO Dec 11, 2017 21:27
[2017-12-11 21:41] LABS: BASO % 1 % (0-3); EOS # 0.3 x10^3/uL (0.0-0.7); EOS % 5 % (0-3); HEMATOCRIT 38.4 % (36.0-47.0); HEMOGLOBIN 12.9 g/dL (12.0-15.5); LYMPH # 2.3 x10^3/uL (1.0-4.8); LYMPH % 47 % (24-48); MEAN CORPUSCULAR HEMOGLOBIN 33 pg (25-35); MEAN CORPUSCULAR HGB CONC 33 g/dL (31-37); MEAN CORPUSCULAR VOLUME 99 fL (79-100); MONO # 0.4 x10^3/uL (0.0-1.1); MONO % 9 % (0-9); NEUT # 1.9 x10^3uL (1.8-7.7); NEUT % 39 % (31-73); PLATELET COUNT 179 x10^3/uL (140-400); RED BLOOD COUNT 3.88 x10^6/uL (3.50-5.40); RED CELL DISTRIBUTION WIDTH 15.2 % (11.5-14.5); WHITE BLOOD COUNT 4.9 x10^3/uL (4.0-11.0)
[2017-12-11 21:55] LABS: ALBUMIN 3.5 g/dL (3.4-5.0); ALBUMIN/GLOBULIN RATIO 1.2 (1.0-1.7); CALCIUM 9.1 mg/dL (8.5-10.1); CREATININE 0.9 mg/dL (0.6-1.0); GFR 60.9; POTASSIUM 3.9 mmol/L (3.5-5.1); TOTAL BILIRUBIN 0.5 mg/dL (0.2-1.0); TOTAL PROTEIN 6.5 g/dL (6.4-8.2)
--- NOTE | 2017-12-11 22:28 | RAD ---
PORTABLE CHEST 1V History: Chest pain Comparison: October 01, 2017 Findings: Single view of the chest is submitted. There is no infiltrate, pneumothorax, or effusion. The pericardial cardiac silhouette is somewhat enlarged although stable. There is moderate size hiatal hernia. There is again opaque likely calcified nodule of the mid to superior left hemithorax. Impression: 1. No acute radiographic abnormality is identified. 2. There is hiatal hernia. Electronically signed by: Nabeel Ellison MD (12/11/2017 9:35 PM) [facility]
--- NOTE | 2017-12-11 22:28 | EKG ---
[address] [address] Test Date: 2017-12-11 Test Time: 21:31:02 Pat Name: JACY COLON Department: Room: Gender: F [employer] Mixer: CHARLIE : 1940 Requested By: MIKEY DEL CID Order Number: [id number] Reading MD: Yves Isaac MD Measurements Intervals [place] Rate: 61 P: 36 DC: 180 QRS: -16 QRSD: 96 T: 61 QT: 416 QTc: 424 Interpretive Statements SINUS RHYTHM Electronically Signed On 12-12-2017 9:17:34 CDT by Yves Isaac MD
[2017-12-11] MEDS ORDERED: NITROGLYCERIN SUBLINGUAL 0.4 MG BOTTLE OF 25. SL ONE (22:30)
[2017-12-11 22:40] LABS: BACTERIA,URINE 0 /HPF (0-FEW); BILIRUBIN,URINE NEG (NEG); CLARITY,URINE HAZY; COLOR,URINE YELLOW; GLUCOSE,URINE NEG (NEG); NITRITE,URINE NEG (NEG); SQUAMOUS EPITHELIAL CELL,UR MOD /LPF; UROBILINOGEN,URINE 0.2 mg/dL (0.2 mg/dL)
[2017-12-11] MEDS ORDERED: HEPARIN for IV BOLUS 10,000 UNIT/10 ML VIAL. IV ONE ×2 (22:45→23:00)
[2017-12-11] MEDS ORDERED: HEPARIN 25,000UTS/500ML PREMIX 500 ML IV PRN ×2 (22:45→23:00)
[2017-12-11 22:54] VITALS: BP 186/90
== END 2017-12-12 00:04 | disposition short-term general hospital (02) ==
LOC: ER 20:50
DX: R07.89 Other chest pain (principal); R79.89 Other specified abnormal findings of blood chemistry; I48.91 Unspecified atrial fibrillation; M19.90 Unspecified osteoarthritis, unspecified site; I50.9 Heart failure, unspecified; J44.9 Chronic obstructive pulmonary disease, unspecified; F17.210 Nicotine dependence, cigarettes, uncomplicated; Z87.440 Personal history of urinary (tract) infections
CPT/HCPCS: 36415; 71045; 80053; 81001; 84484; 85025; 87086; 93005; 96365; 96376; 99285; J1644

== ENCOUNTER 2018-05-09 14:10 | Emergency (ER) | payer MEDICARE, OTHER ==
[~2018-05-09] VITALS: Ht 162.6 cm; Wt 83.9 kg
--- NOTE | 2018-05-09 14:43 | EKG ---
[address] [address] Test Date: 2018-05-09 Test Time: 14:37:16 Pat Name: JACY COLON Department: Room: Gender: F [employer] Water Well: : 1940 Requested By: MIKEY DEL CID Order Number: [id number] Reading MD: Dave Garcia Measurements Intervals [place] Rate: 72 P: 20 IN: 158 QRS: -18 QRSD: 90 T: 22 QT: 376 QTc: 413 Interpretive Statements SINUS RHYTHM LEFT ATRIAL ABNORMALITY LEFTWARD AXIS QRS(T) CONTOUR ABNORMALITY CONSIDER INFERIOR MYOCARDIAL DAMAGE ABNORMAL ECG Electronically Signed On 05-10-2018 9:06:45 [employer]TER[employer] TECHNICIAN by Dave Garcia
[2018-05-09 15:06] LABS: BILIRUBIN,URINE NEG (NEG); CLARITY,URINE CLOUDY; COLOR,URINE STRAW; GLUCOSE,URINE NEG (NEG); NITRITE,URINE NEG (NEG); UROBILINOGEN,URINE 2 mg/dL (0.2 mg/dL)
[2018-05-09 15:07] LABS: BACTERIA,URINE MOD /HPF (0-FEW); RBC,URINE 20-40 /HPF (0-2); SQUAMOUS EPITHELIAL CELL,UR MOD /LPF
[2018-05-09 15:09] LABS: HYALINE CASTS, URINE FEW /HPF
--- NOTE | 2018-05-09 15:10 | PHYS DOC ---
Past History Past Medical History: A-Fib, Arthritis, CHF, COPD, UTI, Other Past Surgical History: Other Smoking: Cigarettes Alcohol Use: None Drug Use: None Adult General Chief Complaint Chief Complaint: SHORTNESS OF BREATH HPI HPI 78-year-old female presents with fever. Patient has been feeling under the weather for about 5 days. She noticed a fever 48 hours ago. It seems, and go. She has taken some Tylenol for it yesterday and seemed to work. Patient has been feeling generally fatigued and having less energy. She denies cough or shortness of breath. She denies any chest pain. No nausea, vomiting, or diarrhea. She does feel like she has been urinating more frequently. Review of Systems Review of Systems Constitutional: Fever and chills [] Eyes: Denies change in visual acuity, redness, or eye pain [] HENT: Denies nasal congestion or sore throat [] Respiratory: Denies cough or shortness of breath [] Cardiovascular: No additional information not addressed in HPI [] GI: Denies abdominal pain, nausea, vomiting, bloody stools or diarrhea [] : Denies dysuria or hematuria [] Musculoskeletal: Denies back pain or joint pain [] Integument: Denies rash or skin lesions [] Neurologic: Denies headache, focal weakness or sensory changes [] Endocrine: Denies polyuria or polydipsia [] All other systems were reviewed and found to be within normal limits, except as documented in this note. Current Medications Current Medications Current Medications Medications (Trade) Dose Ordered Sig/Osvaldo Start Time Stop Time Status Last Admin Dose Admin Sodium Chloride 1,000 ml @ 1,000 mls/hr 1X ONCE 05/09/18 15:15 05/09/18 16:14 UNV Allergies Allergies Allergies Coded Allergies Type Severity Reaction Last Updated Verified No Known Drug Allergies 09/26/17 No Physical Exam Physical Exam Constitutional: Well developed, well nourished, no acute distress, non-toxic appearance. [] HENT: Normocephalic, atraumatic, bilateral external ears normal, oropharynx moist, no oral exudates, nose normal. [] Eyes: PERRLA, EOMI, conjunctiva normal, no discharge. [] Neck: Normal range of motion, no tenderness, supple, no stridor. [] Cardiovascular:Heart rate regular rhythm, no murmur [] Lungs & Thorax: Bilateral breath sounds clear to auscultation [] Abdomen: Bowel sounds normal, soft, no tenderness, no masses, no pulsatile masses. [] Skin: Warm, dry, no erythema, no rash. [] Back: No tenderness, no CVA tenderness. [] Extremities: No tenderness, no cyanosis, no clubbing, ROM intact, no edema. [] Neurologic: Alert and oriented X 3, normal motor function, normal sensory function, no focal deficits noted. [] Psychologic: Affect normal, judgement normal, mood normal. [] Current Patient Data Vital Signs Vital Signs Date Time Temp Pulse Resp B/P (MAP) Pulse Ox O2 Delivery O2 Flow Rate FiO2 05/09/18 14:25 98.3 81 20 99 Room Air EKG EKG Sinus rhythm, rate 72, no ST elevations or depressions.[] Radiology/Procedures Radiology/Procedures [] Impressions: Chest, PA and Lateral: Technique: PA and lateral views of the chest were obtained. History: Shortness of breath, fever. Comparison: 12/11/2017. Findings: The heart and pulmonary vasculature appear within normal limits. The lungs are clear. Small hiatal hernia is again identified.. Mild degenerative changes thoracic spine. Impression: No acute chest process is seen. Electronically signed by: Amandeep Mora MD (05/09/2018 3:14 PM) [facility] DICTATED AND SIGNED BY: AMANDEEP MORA MD DATE: 05/09/18 1513 CC: MIKEY DEL CID DO; HERBERT ZUNIGA MD CT of the abdomen and pelvis with contrast 05/09/2018. Reason for exam: Abdominal pain with fever and chills. Elevated lactic acid. CT images were made through the abdomen and pelvis using an infusion of 60 mL Omnipaque 300. No oral contrast was given. Exposure: One or more of the following individualized dose reduction techniques were utilized for this examination: 1. Automated exposure control 2. Adjustment of the mA and/or kV according to patient size 3. Use of iterative reconstruction technique. FINDINGS: The lung bases are clear. There is a moderate-sized hiatal hernia. No significant liver parenchymal abnormality is seen. There is probably a tiny cyst in the left lobe. Spleen appears normal. Both kidneys enhance with contrast. There is no apparent mass. There is left-sided hydronephrosis secondary to a proximal ureteral stone that measures about 11 x 11 mm. A smaller stone is seen in the lower right kidney. No adrenal abnormality is seen. The pancreas appears normal. No retroperitoneal or mesenteric adenopathy is apparent. No abdominal soft tissue mass or other clearcut inflammatory process is seen. A normal appendix is shown arising from the cecum. Evaluation of the GI tract is somewhat limited by lack of oral contrast. There is moderate stool throughout the colon. Images through the pelvis shows no apparent distal ureteral stone or obstruction. There is no apparent bladder abnormality. No pelvic or inguinal adenopathy is seen. There is no separate pelvic mass or other inflammatory process. IMPRESSION: There is a large proximal left ureteral stone causing obstruction. Electronically signed by: Jeremiah Sutherland Jr., MD (05/09/2018 5:31 PM) [id number] Course & Med Decision Making Course & Med Decision Making Pertinent Labs and Imaging studies reviewed. (See chart for details) The patient's chest x-ray is unremarkable. Her EKG is unremarkable. Her labs are significant for a lactic acid 3.1, white count of over 12. Her urinalysis is significant for blood but borderline for infection. CT of the abdomen and pelvis reveals an 11 mm x 11 mm obstructing kidney stone on the left. I will give her 1 gram or Rocephin. The patient would prefer to be transferred to . I discussed the patient with and Dr. Torres has accepted her for transfer. [] Dragon Disclaimer Dragon Disclaimer This electronic medical record was generated, in whole or in part, using a voice recognition dictation system. Departure Departure: Referrals: HERBERT ZUNIGA MD (PCP) MIKEY DEL CID DO May 09, 2018 15:10
[2018-05-09] MEDS ORDERED: IV NORMAL SALINE 1,000ML 1,000 ML IV ONE ×2 (15:15→16:30)
--- NOTE | 2018-05-09 15:18 | RAD ---
Chest, PA and Lateral: Technique: PA and lateral views of the chest were obtained. History: Shortness of breath, fever. Comparison: 12/11/2017. Findings: The heart and pulmonary vasculature appear within normal limits. The lungs are clear. Small hiatal hernia is again identified.. Mild degenerative changes thoracic spine. Impression: No acute chest process is seen. Electronically signed by: Amandeep Keyes MD (05/09/2018 3:14 PM) [facility]
[2018-05-09 15:24] LABS: BASO % 0 % (0-3); EOS % 0 % (0-3); HEMOGLOBIN 11.2 g/dL (12.0-15.5); LYMPH # 1.2 x10^3/uL (1.0-4.8); LYMPH % 9 % (24-48); MEAN CORPUSCULAR HEMOGLOBIN 30 pg (25-35); MEAN CORPUSCULAR HGB CONC 32 g/dL (31-37); MEAN CORPUSCULAR VOLUME 95 fL (79-100); MONO # 1.2 x10^3/uL (0.0-1.1); MONO % 10 % (0-9); NEUT # 10.2 x10^3uL (1.8-7.7); NEUT % 81 % (31-73); PLATELET COUNT 188 x10^3/uL (140-400); RED CELL DISTRIBUTION WIDTH 15.6 % (11.5-14.5); WHITE BLOOD COUNT 12.6 x10^3/uL (4.0-11.0)
[2018-05-09 15:36] LABS: ALBUMIN 3.5 g/dL (3.4-5.0); ALBUMIN/GLOBULIN RATIO 1.1 (1.0-1.7); CALCIUM 8.3 mg/dL (8.5-10.1); CREATININE 1.4 mg/dL (0.6-1.0); GFR 36.5; POTASSIUM 3.2 mmol/L (3.5-5.1); TOTAL BILIRUBIN 1.1 mg/dL (0.2-1.0); TOTAL PROTEIN 6.8 g/dL (6.4-8.2)
[2018-05-09] MEDS ORDERED: ACETAMINOPHEN 500 MG TABLET PO ONE ×2 (16:01→16:30)
[2018-05-09 16:41] LABS: INFLUENZA A PATIENT NEGATIVE (NEGATIVE); INFLUENZA B PATIENT NEGATIVE (NEGATIVE)
[2018-05-09] MEDS ORDERED: IOHEXOL 300 MG/ML 75 ML VIAL. IV ONE (16:50)
[2018-05-09] MEDS ORDERED: IOHEXOL 300 MG/ML 75 ML VIAL. ONE (17:00)
--- NOTE | 2018-05-09 17:34 | RAD ---
CT of the abdomen and pelvis with contrast 05/09/2018. Reason for exam: Abdominal pain with fever and chills. Elevated lactic acid. CT images were made through the abdomen and pelvis using an infusion of 60 mL Omnipaque 300. No oral contrast was given. Exposure: One or more of the following individualized dose reduction techniques were utilized for this examination: 1. Automated exposure control 2. Adjustment of the mA and/or kV according to patient size 3. Use of iterative reconstruction technique. FINDINGS: The lung bases are clear. There is a moderate-sized hiatal hernia. No significant liver parenchymal abnormality is seen. There is probably a tiny cyst in the left lobe. Spleen appears normal. Both kidneys enhance with contrast. There is no apparent mass. There is left-sided hydronephrosis secondary to a proximal ureteral stone that measures about 11 x 11 mm. A smaller stone is seen in the lower right kidney. No adrenal abnormality is seen. The pancreas appears normal. No retroperitoneal or mesenteric adenopathy is apparent. No abdominal soft tissue mass or other clearcut inflammatory process is seen. A normal appendix is shown arising from the cecum. Evaluation of the GI tract is somewhat limited by lack of oral contrast. There is moderate stool throughout the colon. Images through the pelvis shows no apparent distal ureteral stone or obstruction. There is no apparent bladder abnormality. No pelvic or inguinal adenopathy is seen. There is no separate pelvic mass or other inflammatory process. IMPRESSION: There is a large proximal left ureteral stone causing obstruction. Electronically signed by: Jeremiah Sutherland Jr., MD (05/09/2018 5:31 PM) [facility]
[2018-05-09] MEDS ORDERED: IV NORMAL SALINE 50ML 50 ML ONE (17:51)
[2018-05-09] MEDS ORDERED: cefTRIAXone SODIUM 1 GM VIAL IV ONE (17:51)
[2018-05-09 19:45] VITALS: BP 117/62
== END 2018-05-09 19:43 | disposition short-term general hospital (02) ==
LOC: ER 14:10
DX: N13.2 Hydronephrosis with renal and ureteral calculous obstruction (principal); R31.9 Hematuria, unspecified; I48.91 Unspecified atrial fibrillation; M19.90 Unspecified osteoarthritis, unspecified site; I50.9 Heart failure, unspecified; J44.9 Chronic obstructive pulmonary disease, unspecified; F17.210 Nicotine dependence, cigarettes, uncomplicated; Z87.440 Personal history of urinary (tract) infections
CPT/HCPCS: 36415; 71046; 74177; 80053; 81001; 83605; 84484; 85025; 87040; 87086; 87186; 87205; 87804; 93005; 96365; 99285; J0696; Q9967; J7030

== ENCOUNTER 2018-06-19 12:15 | Observation (INO) | payer MEDICARE, OTHER ==
[~2018-06-19] VITALS: Ht 162.6 cm; Wt 82.2 kg
--- NOTE | 2018-06-19 12:27 | PHYS DOC ---
Past History Past Medical History: A-Fib, Arthritis, CHF, COPD, Kidney Stones, UTI, Other Past Surgical History: Other Additional Past Surgical Histo: ureter stent Smoking: Cigarettes Alcohol Use: None Drug Use: None Adult General Chief Complaint Chief Complaint: SHORTNESS OF BREATH HPI HPI Patient is a 78 year old female who presents with shortness of breath and weakness. This started at approximately midnight. Patient reports decreased exercise tolerance during the course of the night. Patient has been up frequently going to the restroom to urinate. There has been no fever. No chest pain. Patient recently had a ureteral stent removed from recent kidney stones. She noted that 3 days ago her temperature had dropped to 97. The stent was removed 2 days ago. Resting makes the difficulty breathing better. Patient was brought in by EMS who noted that her oxygen saturation started in the upper 90s percent however during monitoring during transport her oxygen saturation decreased to the upper 80s but improved with supplemental oxygen. No breathing treatments were administered. [] Review of Systems Review of Systems Constitutional: Denies fever or chills [] Eyes: Denies change in visual acuity, redness, or eye pain [] HENT: Denies nasal congestion or sore throat [] Respiratory: Denies cough, see history of present illness[] Cardiovascular: No chest pain or palpitations[] GI: Denies abdominal pain, nausea, vomiting, bloody stools or diarrhea [] : Denies dysuria or hematuria, hematuria has resolved since the ureteral stent was removed [] Musculoskeletal: Denies back pain or joint pain [] Integument: Denies rash or skin lesions [] Neurologic: Denies headache, focal weakness or sensory changes [] Endocrine: Denies polyuria or polydipsia [] All other systems were reviewed and found to be within normal limits, except as documented in this note. Allergies Allergies Allergies Coded Allergies Type Severity Reaction Last Updated Verified No Known Drug Allergies 09/26/17 No Physical Exam Physical Exam Constitutional: Well developed, well nourished, no acute distress, non-toxic appearance. [] HENT: Normocephalic, atraumatic, bilateral external ears normal, oropharynx moist, no oral exudates, nose normal. [] Eyes: PERRLA, EOMI, conjunctiva normal, no discharge. [] Neck: Normal range of motion, no tenderness, supple, no stridor. [] Cardiovascular:Heart rate regular rhythm, no murmur [] Lungs & Thorax: Bilateral breath sounds clear to auscultation , speaks in full sentences[] Abdomen: Bowel sounds normal, soft, no tenderness, no masses, no pulsatile masses. [] Skin: Warm, dry, no erythema, no rash. [] Back: No tenderness, no CVA tenderness. [] Extremities: No tenderness, no cyanosis, no clubbing, ROM intact, no edema. [] Neurologic: Alert and oriented X 3, normal motor function, normal sensory function, no focal deficits noted. [] Psychologic: Affect normal, judgement normal, mood normal. [] EKG EKG EKG shows a sinus rhythm at 67 bpm, left axis at -11, QTC of 438 ms, no ST elevations,[] Radiology/Procedures Radiology/Procedures History: short of breath with weakness Comparison: Two-view chest May 09, 2018. Findings: Cardiac size is stable. There is a moderate-sized hiatal hernia with an air-fluid level. Mildly tortuous thoracic aorta. Stable calcified granuloma right lung apex. Pulmonary vasculature is normal. The lungs are clear. No pleural effusion or pneumothorax is seen. There is no acute bone abnormality. Degenerative spondylosis of the thoracic spine. IMPRESSION: No acute cardiopulmonary process. CT CHEST WITH CONTRAST, PULMONARY ANGIOGRAM History: short of breath with weakness x 1 day, no known lung or heart disease, Comparison: CT chest with contrast, CT PE September 27, 2017. Technique: Helical CT of the chest was performed after the administration of 65 cc of Omnipaque 300 intravenous contrast according to PE protocol. Axial and coronal reconstructions were obtained. 3-D MIP images were constructed to better evaluate the pulmonary arteries. Findings: Pulmonary arteries are not well contrast opacified and study is nondiagnostic for pulmonary embolus. There is ectasia of the ascending thoracic aorta. Coarse calcification in the right thyroid lobe. Partially calcified left hilar lymph nodes. There is three-vessel coronary artery disease. Cardiac size is mildly enlarged. No pericardial effusion. Moderate-sized hiatal hernia. The central airways are patent. Calcified granuloma right upper lobe and left upper lobe. Mild atelectasis in the bilateral lower lobes. There are a couple of tiny hypodensities in the liver, too small to further characterize. These findings are stable. No compression fracture in the thoracic spine. IMPRESSION: 1. Study is nondiagnostic for pulmonary embolus. Consider VQ scan. 2. Mild atelectasis in the bilateral lower lobes. 3. Hiatal hernia.[] Course & Med Decision Making Course & Med Decision Making Pertinent Labs and Imaging studies reviewed. (See chart for details) ED course: Patient arrived, was placed in bed, tolerated exam well. Patient had a breathing treatment from raspatory therapy which improved her oxygenation. Patient did not have any additional hypoxic episodes that were noted by EMS. Due to the elevated d-dimer she was transported to and from CT without any complications. Unfortunately the CT scan was nondiagnostic. Feel that this is patient is low likelihood for PE given the intermittent and transient nature of the hypoxia. However due to the hypoxic episode and her generalized weakness, consultation was made with her primary care physician who will be admitting her. Lab and imaging findings were discussed with patient and family who voiced understanding. Patient was admitted in improved condition. Medical decision making: There is no evidence of pneumonia, pneumothorax, her BNP while elevated is better than it was when she was seen for a non-STEMI, her cardiac enzymes are negative at this point. Feel that she is low likelihood for PE given the intermittent nature of the hypoxia.[] Dragon Disclaimer Dragon Disclaimer This electronic medical record was generated, in whole or in part, using a voice recognition dictation system. Departure Departure: Impression: Primary Impression: Weakness Additional Impressions: Shortness of breath Hypoxic episode Disposition: ADMITTED INPATIENT Admitting Physician: Tj Ruffin Condition: GUARDED Referrals: TJ RUFFIN MD (PCP) Problem Qualifiers COOPERMIROSLAVA PRITCHARD Jun 19, 2018 12:27
[2018-06-19 12:41] LABS: BASO % 1 % (0-3); EOS # 0.2 x10^3/uL (0.0-0.7); EOS % 3 % (0-3); HEMATOCRIT 33.3 % (36.0-47.0); HEMOGLOBIN 10.5 g/dL (12.0-15.5); LYMPH # 1.4 x10^3/uL (1.0-4.8); LYMPH % 18 % (24-48); MEAN CORPUSCULAR HEMOGLOBIN 30 pg (25-35); MEAN CORPUSCULAR HGB CONC 32 g/dL (31-37); MEAN CORPUSCULAR VOLUME 95 fL (79-100); MONO # 0.5 x10^3/uL (0.0-1.1); MONO % 7 % (0-9); NEUT # 5.7 x10^3uL (1.8-7.7); NEUT % 72 % (31-73); PLATELET COUNT 272 x10^3/uL (140-400); RED BLOOD COUNT 3.52 x10^6/uL (3.50-5.40); RED CELL DISTRIBUTION WIDTH 18.1 % (11.5-14.5); WHITE BLOOD COUNT 7.8 x10^3/uL (4.0-11.0)
[2018-06-19] MEDS ORDERED: NITR100C PO (12:44)
[2018-06-19] MEDS ORDERED: IPRATROPIUM BROMIDE 0.5 MG/2.5 ML NEBU. NEB ONE (12:45)
[2018-06-19] MEDS ORDERED: HYOS0.3715 PO (12:45)
[2018-06-19] MEDS ORDERED: PHEN-443 PO (12:45)
[2018-06-19] MEDS ORDERED: TAMS0.4C2 PO (12:46)
[2018-06-19] MEDS ORDERED: CLOP75TA57 PO (12:48)
[2018-06-19] MEDS ORDERED: AMIO200T7 PO (12:49)
[2018-06-19] MEDS ORDERED: IPRATRPIUM/ALBUTEROL 0.5/2.5MG 3 ML NEBU. ONE ×2 (12:56→15:36)
[2018-06-19 13:01] LABS: ALBUMIN 3.1 g/dL (3.4-5.0); ALBUMIN/GLOBULIN RATIO 0.9 (1.0-1.7); CALCIUM 8.8 mg/dL (8.5-10.1); CREATININE 1.1 mg/dL (0.6-1.0); GFR 48.2; POTASSIUM 3.9 mmol/L (3.5-5.1); TOTAL BILIRUBIN 0.3 mg/dL (0.2-1.0); TOTAL PROTEIN 6.5 g/dL (6.4-8.2)
[2018-06-19 13:07] LABS: INFLUENZA A PATIENT NEGATIVE (NEGATIVE); INFLUENZA B PATIENT NEGATIVE (NEGATIVE)
[2018-06-19 14:04] LABS: BILIRUBIN,URINE NEG (NEG); CLARITY,URINE HAZY; COLOR,URINE AMBER; GLUCOSE,URINE NEG (NEG); NITRITE,URINE NEG (NEG); UROBILINOGEN,URINE 0.2 mg/dL (0.2 mg/dL)
[2018-06-19 14:05] LABS: BACTERIA,URINE FEW /HPF (0-FEW); HYALINE CASTS, URINE OCC /HPF; SQUAMOUS EPITHELIAL CELL,UR FEW /LPF
--- NOTE | 2018-06-19 14:12 | RAD ---
CHEST PA LATERAL History: short of breath with weakness Comparison: Two-view chest May 09, 2018. Findings: Cardiac size is stable. There is a moderate-sized hiatal hernia with an air-fluid level. Mildly tortuous thoracic aorta. Stable calcified granuloma right lung apex. Pulmonary vasculature is normal. The lungs are clear. No pleural effusion or pneumothorax is seen. There is no acute bone abnormality. Degenerative spondylosis of the thoracic spine. IMPRESSION: No acute cardiopulmonary process. Electronically signed by: Magan Elise MD (06/19/2018 2:07 PM) [facility]
[2018-06-19] MEDS ORDERED: IOHEXOL 300 MG/ML 75 ML VIAL. IV ONE (14:30)
--- NOTE | 2018-06-19 14:58 | RAD ---
PQRS Compliance Statement: One or more of the following individualized dose reduction techniques were utilized for this examination: 1. Automated exposure control 2. Adjustment of the mA and/or kV according to patient size 3. Use of iterative reconstruction technique CT CHEST WITH CONTRAST, PULMONARY ANGIOGRAM History: short of breath with weakness x 1 day, no known lung or heart disease, Comparison: CT chest with contrast, CT PE September 27, 2017. Technique: Helical CT of the chest was performed after the administration of 65 cc of Omnipaque 300 intravenous contrast according to PE protocol. Axial and coronal reconstructions were obtained. 3-D MIP images were constructed to better evaluate the pulmonary arteries. Findings: Pulmonary arteries are not well contrast opacified and study is nondiagnostic for pulmonary embolus. There is ectasia of the ascending thoracic aorta. Coarse calcification in the right thyroid lobe. Partially calcified left hilar lymph nodes. There is three-vessel coronary artery disease. Cardiac size is mildly enlarged. No pericardial effusion. Moderate-sized hiatal hernia. The central airways are patent. Calcified granuloma right upper lobe and left upper lobe. Mild atelectasis in the bilateral lower lobes. There are a couple of tiny hypodensities in the liver, too small to further characterize. These findings are stable. No compression fracture in the thoracic spine. IMPRESSION: 1. Study is nondiagnostic for pulmonary embolus. Consider VQ scan. 2. Mild atelectasis in the bilateral lower lobes. 3. Hiatal hernia. Electronically signed by: Magan Elise MD (06/19/2018 2:53 PM) [facility]
[2018-06-19] MEDS ORDERED: ACETAMINOPHEN 325 MG TABLET PO PRN (15:30)
[2018-06-19] MEDS ORDERED: ONDANSETRON PF 4 MG/2 ML VIAL. IV PRN (15:30)
[2018-06-19] MEDS: IPRATRPIUM/ALBUTEROL 0.5/2.5MG 3 ML NEBU. NEB SCH ×3 (15:40→21:15)
--- NOTE | 2018-06-19 15:56 | EKG ---
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
[2018-06-19 16:10] VITALS: BP 137/69
[2018-06-19] MEDS ORDERED: TAMSULOSIN 0.4 MG CAP.ER.24H. PO PRN (19:00)
[2018-06-19] MEDS ORDERED: HYOSCYAMINE 0.125 MG TAB.RAPDIS PO PRN (19:15)
[2018-06-19 19:59] VITALS: BP 117/70
[2018-06-19] MEDS: HEPARIN for SUB-Q USE 5,000 UNIT/ML VIAL. SQ SCH ×2 (21:10→21:35)
[2018-06-19 23:27] VITALS: BP 122/54
[2018-06-20] MEDS: IPRATRPIUM/ALBUTEROL 0.5/2.5MG 3 ML NEBU. NEB SCH (05:18)
[2018-06-20] MEDS: HEPARIN for SUB-Q USE 5,000 UNIT/ML VIAL. SQ SCH ×2 (05:31→14:00)
[2018-06-20 06:44] VITALS: BP 118/64
[2018-06-20 06:50] LABS: BASO % 1 % (0-3); EOS # 0.3 x10^3/uL (0.0-0.7); EOS % 7 % (0-3); HEMATOCRIT 27.2 % (36.0-47.0); HEMOGLOBIN 8.7 g/dL (12.0-15.5); LYMPH # 1.7 x10^3/uL (1.0-4.8); LYMPH % 32 % (24-48); MEAN CORPUSCULAR HEMOGLOBIN 30 pg (25-35); MEAN CORPUSCULAR HGB CONC 32 g/dL (31-37); MEAN CORPUSCULAR VOLUME 94 fL (79-100); MONO # 0.5 x10^3/uL (0.0-1.1); MONO % 9 % (0-9); NEUT # 2.8 x10^3uL (1.8-7.7); NEUT % 53 % (31-73); PLATELET COUNT 212 x10^3/uL (140-400); RED CELL DISTRIBUTION WIDTH 18.1 % (11.5-14.5); WHITE BLOOD COUNT 5.3 x10^3/uL (4.0-11.0)
[2018-06-20 06:51] LABS: CALCIUM 8.5 mg/dL (8.5-10.1); CREATININE 0.9 mg/dL (0.6-1.0); GFR 60.7
[2018-06-20] MEDS ORDERED: ASPIRIN 81 MG TAB.CHEW PO SCH (08:00)
[2018-06-20] MEDS ORDERED: CLOPIDOGREL BISULFATE 75 MG TABLET PO SCH (09:00)
[2018-06-20] MEDS ORDERED: AMIODARONE HCL 200 MG TABLET PO SCH (10:00)
[2018-06-20 11:27] VITALS: BP 131/75
[2018-06-20] MEDS ORDERED: IPRATRPIUM/ALBUTEROL 0.5/2.5MG 3 ML NEBU. NEB SCH (12:00)
--- NOTE | 2018-06-20 12:39 | RAD ---
NUCLEAR MEDICINE VENTILATION PERFUSION SCAN History: Elevated d-dimer, shortness of air x1 day. Comparison: Two-view chest, prior day. Technique: Patient initially ventilated with 12 mCi of xenon-133 gas. Anterior and posterior imaging of the lungs during initial breath-hold, equilibrium and, washout phase images is performed. Perfusion portion performed after intravenous administration of 5.3 mCi Technetium 99m MAA. Multiple projection planar images of the lungs were obtained. Findings: The initial breath-hold ventilation images are homogeneous. There is no retention of tracer on the later washout phase images. Perfusion images demonstrate no perfusion defects. IMPRESSION: Normal VQ scan. Negative for pulmonary embolism. Electronically signed by: Magan Elise MD (06/20/2018 12:35 PM) [facility]
[2018-06-20 14:57] VITALS: BP 125/57
[2018-06-20] MEDS ORDERED: AMIO200T4 PO (15:35)
--- NOTE | 2018-06-20 19:22 | HP ---
ADMIT DATE: 06/19/2018 HISTORY OF PRESENT ILLNESS: A 78-year-old female came in through the Emergency Room with increased shortness of breath and hypoxia. She had generalized weakness. The patient noted she had decreased tolerance on the course of the night. She has noted her oxygen saturation drop down into the low 80s. EMS, noted to be in the low 80s when they picked her up and brought her in through the Emergency Room. Apparently, she just removed a stent from her left ureter with a string so she says and also was having problems going to the bathroom with increased frequency and urgency. She denied chest pain per se, but she was admitted for observation because of this drop in her oxygen saturation down into the 80s and her difficulty in breathing. PAST MEDICAL HISTORY: Kidney stones, stent removed 06/18/2018, COPD, respiratory disorders, history of CHF, rheumatoid arthritis, parathyroidectomy for hypercalcemia, hyperparathyroidism, anxiety, tetanus diphtheria. Vaccinations are unknown, but she has had influenza A, heart attacks in a brother and sisters. ALLERGIES: ADVERSE REACTION TO VANCOMYCIN. MEDICATIONS: Were reviewed thoroughly. SOCIAL HISTORY: The patient used to be a former smoker, quit several years ago. Denies alcohol or drug use. REVIEW OF SYSTEMS: Generalized weakness, shortness of breath, temporarily, but feeling better. Denies chest pain, headaches, visual changes, any neurological symptoms were negative. PHYSICAL EXAMINATION: VITAL SIGNS: Blood pressure 122/54, respiratory rate 18, pulse 63 and afebrile. HEENT: The patient's head is atraumatic, normocephalic. Eyes: PERRLA without jaundice. The mouth and throat were normal. NECK: Supple, no JVD or thyromegaly. LUNGS: Diminished throughout, but clear. CARDIOVASCULAR: Regular sinus rhythm, S1, S2, without murmur, rub, thrill, or extra heart sound. ABDOMEN: Soft, nontender, no rebound or guarding. Positive bowel sounds, no hepatosplenomegaly was noted. EXTREMITIES: No clubbing, cyanosis or edema. NEUROLOGIC: The patient was alert and oriented x 3. LABORATORY DATA: The patient had a V/Q scan that was negative. A CTA that was negative for PE, even though she had a positive D-dimer. Chest x-ray was unremarkable. Labs were unremarkable for flu, although she did have low iron count and she does have anemia with hemoglobin 8.7. IMPRESSION: Therefore, acute respiratory distress with the acute hypoxia, resolved. Anemia, iron deficiency, kidney stones, dysuria. The patient did a 6-minute walk. She did fine there. She was discharged home. See MRAD. Decreased activity and followup in the office in 7-10 days or sooner as needed. HERBERT ZUNIGA MD DR: BERTA/eugene JOB#: [id number] / [id number]
[2018-06-21] MEDS ORDERED: TAMSULOSIN 0.4 MG CAP.ER.24H. PO SCH (09:00)
== END 2018-06-20 16:00 | disposition home health service (06) ==
LOC: ER 12:15 → 1 SOUTH 15:19
PROVIDERS: ADMIT Family Medicine; ATTEND Family Medicine
DX: R06.00 Dyspnea, unspecified (principal); J44.9 Chronic obstructive pulmonary disease, unspecified; N39.0 Urinary tract infection, site not specified; M19.90 Unspecified osteoarthritis, unspecified site; R53.1 Weakness; J98.11 Atelectasis; K44.9 Diaphragmatic hernia without obstruction or gangrene; Z87.891 Personal history of nicotine dependence; R09.02 Hypoxemia; R79.1 Abnormal coagulation profile; I50.9 Heart failure, unspecified; M06.9 Rheumatoid arthritis, unspecified; I48.91 Unspecified atrial fibrillation; E83.52 Hypercalcemia; F41.9 Anxiety disorder, unspecified; E21.3 Hyperparathyroidism, unspecified; J10.1 Influenza due to other identified influenza virus with other respiratory manifestations; Z87.442 Personal history of urinary calculi; D50.9 Iron deficiency anemia, unspecified; I25.2 Old myocardial infarction
CPT/HCPCS: 36415; 71046; 71275; 78582; 80048; 80053; 81001; 82947; 83540; 83550; 83880; 84484; 85025; 85379; 85610; 87086; 87186; 87804; 93005; 94618; 94640; 99284; A9540; A9558; G0378; G0379; J7620; Q9967; 96374; J1644

== ENCOUNTER → 2018-07-13 | Outpatient (CLI) | payer MEDICARE, OTHER ==
[2018-06-20 14:57] VITALS: BP 125/57
[~2018-07-13] MED LIST changes: +AMIO200T4 PO; +AMIO200T7 PO; +CLOP75TA57 PO; +HYOS0.3715 PO; +NITR100C PO; +PHEN-443 PO; +TAMS0.4C2 PO
[2018-07-14 13:26] LABS: FREE T4 1.31 ng/dL (0.76-1.46); THYROID STIM HORMONE (TSH) 3.585 uIU/mL (0.358-3.740)
== END | disposition home or self-care (01) ==
LOC: LAB 14:19
PROVIDERS: ATTEND Internal Medicine Interventional Cardiology
DX: I48.0 Paroxysmal atrial fibrillation (principal)
CPT/HCPCS: 84439; 84443

== ENCOUNTER 2018-08-30 16:20 | Inpatient (IN) | payer MEDICARE, OTHER ==
[~2018-08-30] VITALS: Ht 161.3 cm; Wt 84.9 kg
[2018-08-30 16:52] VITALS: BP 139/64
[2018-08-30] MEDS ORDERED: METH2.5T PO (17:17)
[2018-08-30] MEDS ORDERED: ATORVASTATIN CA80 MG PO (17:17)
--- NOTE | 2018-08-30 17:17 | NUR ---
Pt Celsa Diaz direct admit from Dr Toro office for cough, weakness and EKG changes. Pt ambulated to room without difficulty. Complains of back pain and right mastoid pain that is relieved with tylenol. Reports a productive cough, clear in color. Pt unsure of what EKG changes was seen but does have a history of Afib. IV started in LAC. WCTM.
[2018-08-30] MEDS ORDERED: IOHEXOL 350 MG/ML 100 ML VIAL. IV ONE (17:30)
[2018-08-30 17:57] LABS: BASO % 0 % (0-3); EOS % 0 % (0-3); HEMATOCRIT 35.1 % (36.0-47.0); HEMOGLOBIN 11.2 g/dL (12.0-15.5); LYMPH % 23 % (24-48); MEAN CORPUSCULAR HEMOGLOBIN 29 pg (25-35); MEAN CORPUSCULAR HGB CONC 32 g/dL (31-37); MEAN CORPUSCULAR VOLUME 91 fL (79-100); MONO # 0.4 x10^3/uL (0.0-1.1); MONO % 10 % (0-9); NEUT # 2.9 x10^3uL (1.8-7.7); NEUT % 67 % (31-73); PLATELET COUNT 136 x10^3/uL (140-400); RED BLOOD COUNT 3.84 x10^6/uL (3.50-5.40); RED CELL DISTRIBUTION WIDTH 16.2 % (11.5-14.5); WHITE BLOOD COUNT 4.3 x10^3/uL (4.0-11.0)
[2018-08-30] MEDS ORDERED: AZITHROMYCIN 500 MG in IV NORMAL SALINE 250ML 250 ML IV SCH (18:00)
[2018-08-30 18:10] LABS: ALBUMIN 3.3 g/dL (3.4-5.0); C REACTIVE PROTEIN 48.3 mg/L (0-3.3); CALCIUM 8.6 mg/dL (8.5-10.1); CREATININE 1.1 mg/dL (0.6-1.0); GFR 48.2; POTASSIUM 3.5 mmol/L (3.5-5.1); TOTAL BILIRUBIN 0.5 mg/dL (0.2-1.0); TOTAL PROTEIN 6.5 g/dL (6.4-8.2)
[2018-08-30 18:23] VITALS: BP 124/68
[2018-08-30 19:44] LABS: BACTERIA,URINE 0 /HPF (0-FEW); BILIRUBIN,URINE NEG (NEG); CLARITY,URINE CLOUDY; COLOR,URINE AMBER; GLUCOSE,URINE NEG (NEG); NITRITE,URINE NEG (NEG); SQUAMOUS EPITHELIAL CELL,UR OCC /LPF; UROBILINOGEN,URINE 1 mg/dL (0.2 mg/dL); WBC,URINE 0 /HPF (0-4)
[2018-08-30] MEDS: ACETAMINOPHEN 325 MG TABLET PO PRN (20:12)
[2018-08-30] MEDS: ATORVASTATIN CALCIUM 20 MG TABLET PO SCH (20:12)
[2018-08-30] MEDS: LACTOBACILLUS RHAMNOSUS GG 1 CAPSULE. PO SCH (20:12)
--- NOTE | 2018-08-30 20:54 | EKG ---
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
[2018-08-30 23:33] VITALS: BP 120/74
[2018-08-31] MEDS: ACETAMINOPHEN 325 MG TABLET PO PRN ×3 (04:09→22:34)
[2018-08-31 04:13] VITALS: BP 123/68
--- NOTE | 2018-08-31 08:35 | RAD ---
CTA of the chest with contrast, 08/30/2018: HISTORY: Cough, shortness of breath Multidetector CT imaging was performed following an IV bolus injection of iodinated contrast material. Multiplanar reconstructions were produced including coronal and sagittal MIP images. The pulmonary arteries are well opacified and no filling defects are seen to suggest pulmonary emboli. There is calcific plaquing of the thoracic aorta. The ascending aorta is at the upper limits of normal in size measuring 4 cm in width. There is no evidence of aortic dissection. Coronary artery disease is evident. A large hiatal hernia is present. No mediastinal or hilar adenopathy is seen. There are granulomatous calcifications in both lungs and at the left hilum. A few small scattered reticular opacities primarily in the periphery of the lungs, best seen in the lung bases laterally are likely due to mild fibrosis. No pleural fluid is evident. There is a mild thoracolumbar scoliosis with multilevel degenerative change. IMPRESSION: 1. No CT evidence of central pulmonary emboli. 2. Large hiatal hernia. 3. Stable borderline enlargement of the ascending aorta. PQRS Compliance Statement: One or more of the following individualized dose reduction techniques were utilized for this examination: 1. Automated exposure control 2. Adjustment of the mA and/or kV according to patient size 3. Use of iterative reconstruction technique Electronically signed by: Rainer Chew MD (08/31/2018 8:33 AM) [facility]
[2018-08-31] MEDS: AMIODARONE HCL 200 MG TABLET PO SCH (08:36)
[2018-08-31] MEDS: ASPIRIN 81 MG TAB.CHEW PO SCH (08:37)
[2018-08-31] MEDS: CLOPIDOGREL BISULFATE 75 MG TABLET PO SCH (08:37)
[2018-08-31] MEDS: FOLIC ACID 1 MG TABLET PO SCH (08:37)
[2018-08-31] MEDS: LACTOBACILLUS RHAMNOSUS GG 1 CAPSULE. PO SCH ×2 (08:37→22:34)
[2018-08-31] MEDS ORDERED: ATORVASTATIN CA80 MG PO (09:45)
[2018-08-31] MEDS ORDERED: guaiFENesin DM 200MG/20MG 10 ML SYRUP PO PRN (10:00)
[2018-08-31 10:41] VITALS: BP 103/63
[2018-08-31] MEDS: methylPREDNISolone SOD SUCC PF 40 MG/ML VIAL. IV SCH ×2 (11:40→22:34)
[2018-08-31] MEDS: IPRATRPIUM/ALBUTEROL 0.5/2.5MG 3 ML NEBU. NEB SCH ×3 (12:00→20:38)
--- NOTE | 2018-08-31 14:08 | NUR ---
Gertrude PoloRn (ER tankage supervisor) call [facility] (talked with Izzy) and ask them to do their patients breathing treatments due to therapist being in a code in ER.
[2018-08-31 15:03] VITALS: BP 126/72
[2018-08-31] MEDS ORDERED: AZITHROMYCIN 250 MG TABLET. PO SCH (17:00)
[2018-08-31 19:56] VITALS: BP 122/70
[2018-08-31] MEDS: ATORVASTATIN CALCIUM 20 MG TABLET PO SCH (22:36)
[2018-08-31 23:01] VITALS: BP 132/64
--- NOTE | 2018-09-01 02:10 | PN ---
DATE: 08/31/2018 SUBJECTIVE: The patient is a 78-year-old female admitted with acute respiratory distress and the like. The patient is resting fairly comfortably, although is still having some difficulty breathing. Expiratory and inspiratory wheezes throughout, but some improvement from the day before. PHYSICAL EXAMINATION: VITAL SIGNS: Include that blood pressure of 122/70, respiratory rate 20, pulse ____, afebrile. GENERAL: The patient is alert and oriented. LUNGS: Diminished with both inspiratory and expiratory wheezes. CARDIOVASCULAR: Regular sinus rhythm. ABDOMEN: Soft, nontender. EXTREMITIES: No clubbing, cyanosis, nor edema. IMPRESSION: Therefore, acute exacerbation of chronic obstructive pulmonary disease with acute respiratory distress. The patient will be continued on aggressive pulmonary toilet, antibiotics, and we will make further evaluations on her as indicated. HERBERT ZUNIGA MD DR: BERTA/eugene JOB#: [id number] / [id number]
[2018-09-01] MEDS: IPRATRPIUM/ALBUTEROL 0.5/2.5MG 3 ML NEBU. NEB SCH ×2 (05:27→09:32)
[2018-09-01] MEDS: AMIODARONE HCL 200 MG TABLET PO SCH (05:30)
[2018-09-01 05:32] VITALS: BP 103/66
--- NOTE | 2018-09-01 05:33 | NUR ---
PT HEART RATE INCREASING INTO THE 130S, ST TO A-FIB AT TIMES. NOTIFIED DR ZUNIGA. ORDER RECEIVED TO GIVE AM DOSE OF AMIODARONE EARLY. PT STATES THAT SHE CAN TELL HER HEART IS BEATING FASTER BUT IS OTHERWISE ASYMPTOMATIC. PREVIOUSLY, PT HAD SLEPT WELL OVERNIGHT, ONLY WAKING TO USE THE RESTROOM. NO COMPLAINTS OF PAIN. PROGRESSING TOWARDS MEETING GOALS. Addendum: 09/01/18 at 0632 by YOGI LIMON RN RN HEART RATE NOW IN 70S
[2018-09-01] MEDS: LACTOBACILLUS RHAMNOSUS GG 1 CAPSULE. PO SCH (08:47)
[2018-09-01] MEDS: FOLIC ACID 1 MG TABLET PO SCH (08:47)
[2018-09-01] MEDS: ASPIRIN 81 MG TAB.CHEW PO SCH (08:47)
[2018-09-01] MEDS: methylPREDNISolone SOD SUCC PF 40 MG/ML VIAL. IV SCH (08:47)
[2018-09-01] MEDS: CLOPIDOGREL BISULFATE 75 MG TABLET PO SCH (08:47)
[2018-09-01 10:28] VITALS: BP 117/65
[2018-09-01] MEDS ORDERED: IPRA3AMP29 NEB (12:07)
[2018-09-01] MEDS ORDERED: DOXY100T PO (12:07)
[2018-09-01] MEDS ORDERED: METH4TAB2 PO (12:14)
--- NOTE | 2018-09-01 12:35 | DS ---
DATE OF DISCHARGE: 09/01/2018 HOSPITAL COURSE: The patient admitted with acute exacerbation of asthma with some type of bronchial infection. The patient made good progress during the rest of her hospitalization and the patient does have chronic renal disease of probably stage 3. Other than that, the patient's CTA of the chest, borderline enlargement of the aorta, but other than that nothing acute, but the patient did make good progress with her breathing situation. The patient will be discharged home. Follow up as an outpatient and make further evaluation on her as indicated. IMPRESSION: Acute exacerbation of asthma, acute bronchitis. The patient otherwise will be discharged home. She will continue on a breathing machine and make further evaluation on her as an outpatient. See MRAD. Decreased activity. HERBERT ZUNIGA MD DR: BERTA/eugene JOB#: [id number] / [id number]
--- NOTE | 2018-09-01 15:24 | NUR ---
NSG NOTE; DISCHARGE VERBAL AND WRITTEN DISCHARGE INSTRUCTIONS GIVEN TO PT AND DAUGHTER WITH VERBAL UNDERSTANDING RX CALLED TO [facility] DISCHARGE TO HOME AT 1445 VIA W/C ACCOMP BY DAUGHTER
[2018-09-06] MEDS ORDERED: METHOTREXATE SODIUM 2.5 MG TABLET PO SCH (09:00)
== END 2018-09-01 14:45 | disposition home health service (06) | DRG 872 ==
LOC: 1 SOUTH 16:20
PROVIDERS: ADMIT Family Medicine; ATTEND Family Medicine
DX: A41.9 Sepsis, unspecified organism (principal); J45.901 Unspecified asthma with (acute) exacerbation; J44.1 Chronic obstructive pulmonary disease with (acute) exacerbation; J44.0 Chronic obstructive pulmonary disease with (acute) lower respiratory infection; J20.9 Acute bronchitis, unspecified; N18.3 Chronic kidney disease, stage 3 (moderate); I25.10 Atherosclerotic heart disease of native coronary artery without angina pectoris; Z88.8 Allergy status to other drugs, medicaments and biological substances; I48.2 Chronic atrial fibrillation; Z79.899 Other long term (current) drug therapy; Z79.01 Long term (current) use of anticoagulants; I25.2 Old myocardial infarction; Z87.442 Personal history of urinary calculi; Z95.5 Presence of coronary angioplasty implant and graft; Z87.01 Personal history of pneumonia (recurrent)
CPT/HCPCS: 36415; 71275; 80053; 81001; 82550; 83605; 84145; 84484; 85025; 85379; 86140; 87040; 87070; 87205; 93005; 94640; J0456; J0696; J2920; J7050; J7620; Q9967

== ENCOUNTER → 2018-09-16 | Outpatient (CLI) | payer MEDICARE, OTHER ==
[2018-09-01 10:28] VITALS: BP 117/65
[~2018-09-16] MED LIST changes: +ATORVASTATIN CA80 MG PO; +DOXY100T PO; +IPRA3AMP29 NEB; +METH4TAB2 PO
--- NOTE | 2018-09-17 18:46 | RAD ---
DATE: 09/16/2018 EXAM: MAMMO TIKI SCREENING BILATERAL HISTORY: Routine screening COMPARISON: 01/22/2007, 11/19/2004 mammographic exams This study was interpreted with the benefit of Computerized Aided Detection (CAD). Breast Density: SCATTERED The breast parenchyma shows scattered fibroglandular densities. Breast parenchyma level B. FINDINGS: Small mass at the left inner breast is present this probably represents a lymph node. It is not present on the prior exams with certainty. Benign calcification is present. No distortion. IMPRESSION: Mass of which probably represent a lymph node at the left breast. Ultrasound examination recommended for further assessment. BI-RADS CATEGORY: 0 INCOMPLETE: NEEDS ADDITIONAL IMAGING EVALUATION AND/OR PRIOR MAMMOGRAMS FOR COMPARISON. RECOMMENDED FOLLOW-UP: ADD ADDITIONAL IMAGING PQRS compliance statement: Patient information was entered into a reminder system with a target due date pending ultrasound exam of the left breast for the next mammogram. Mammography is a sensitive method for finding small breast cancers, but it does not detect them all and is not a substitute for careful clinical examination. A negative mammogram does not negate a clinically suspicious finding and should not result in delay in biopsying a clinically suspicious abnormality. "Our facility is accredited by the [employer] Mammography Program."
== END | disposition home or self-care (01) ==
LOC: MAMMO 14:25
PROVIDERS: ATTEND Family Medicine
DX: Z12.31 Encounter for screening mammogram for malignant neoplasm of breast (principal)
CPT/HCPCS: 77063; 77067

== ENCOUNTER → 2018-09-24 | Outpatient (CLI) | payer MEDICARE, OTHER ==
[2018-09-01 10:28] VITALS: BP 117/65
--- NOTE | 2018-09-24 13:56 | RAD ---
Left breast ultrasound, 09/24/2018: History: Abnormal mammograms The recent mammograms demonstrated a small superficial nodule in the high posteromedial aspect of the left breast. We performed a targeted ultrasound exam of that region. At the 10:00 location approximately 15 cm from the nipple there is a small hypoechoic nodule nodule measuring 4 x 5 x 6 mm. Its margins are smooth. It is inseparable from the undersurface of the skin. Upon questioning the patient reports a lesion at this level which intermittently drains. This is therefore presumably a sebaceous cyst. It corresponds in location to the mammographic abnormality. No other sonographic abnormality was identified in this region. IMPRESSION: Superficial left breast nodule as described above most compatible with a sebaceous cyst. Clinical surveillance is suggested. BI-RADS 2-benign findings
== END | disposition home or self-care (01) ==
LOC: US 12:44
PROVIDERS: ATTEND Family Medicine
DX: N60.82 Other benign mammary dysplasias of left breast (principal)
CPT/HCPCS: 76641

== ENCOUNTER 2018-11-19 19:14 | Inpatient (IN) | payer MEDICARE, OTHER ==
[~2018-11-19] VITALS: Ht 162.6 cm; Wt 84.6 kg
--- NOTE | 2018-11-19 19:16 | ED.ADGEN ---
Past History Past Medical History: A-Fib, Arthritis, CHF, COPD, Kidney Stones, UTI, Other Past Surgical History: Other Additional Past Surgical Histo: ureter stent Smoking: Cigarettes Alcohol Use: None Drug Use: None Adult General Chief Complaint Chief Complaint ".. I ve been very short of breath.. the last three days.. but it really started 3 weeks ago... " HPI HPI Patient is a 78 year old female who presents with above hx and complaints dyspnea. Patient denies any travel or specific ill contacts. Patient denies any productive cough. Patient denies any fever or chills. Patient denies any history immunosuppression. A shunt denies any change in medications. Patient does have medical history of hypertension, A. fib, CHF, COPD, anemia, diabetes, arthritis and anxiety. Pt. follows with Dr. Ruffin Review of Systems Review of Systems Constitutional: Denies fever or chills [] Eyes: Denies change in visual acuity, redness, or eye pain [] HENT: Denies nasal congestion or sore throat [] Respiratory: Complains of shortness of breath [] Cardiovascular: No additional information not addressed in HPI [] GI: Denies abdominal pain, nausea, vomiting, bloody stools or diarrhea [] : Denies dysuria or hematuria [] Musculoskeletal: Denies back pain or joint pain [] Integument: Denies rash or skin lesions [] Neurologic: Denies headache, focal weakness or sensory changes [] Endocrine: Denies polyuria or polydipsia [] All other systems were reviewed and found to be within normal limits, except as documented in this note. Family History Family History Noncontributory Current Medications Current Medications Current Medications Medications (Trade) Dose Ordered Sig/Osvaldo Start Time Stop Time Status Last Admin Dose Admin Acetaminophen (Tylenol) 1,000 mg 1X ONCE 11/19/18 22:15 11/19/18 22:16 DC 11/19/18 22:17 1,000 MG Albuterol/ Ipratropium (Duoneb) 3 ml 1X ONCE 11/19/18 19:30 11/19/18 19:31 DC 11/19/18 20:11 3 ML Aspirin (Children'S Aspirin) 324 mg 1X ONCE 11/19/18 19:30 11/19/18 19:31 DC 11/19/18 19:52 324 MG Lactated Ringer's 1,000 ml @ 100 mls/hr Q10H 11/19/18 19:17 11/20/18 05:16 11/19/18 19:51 100 MLS/HR Allergies Allergies Allergies Coded Allergies Type Severity Reaction Last Updated Verified vancomycin Allergy Mild 06/19/18 Yes Physical Exam Physical Exam Constitutional: Moderate distress, non-toxic appearance. [] HENT: Normocephalic, atraumatic, bilateral external ears normal, oropharynx moist, no oral exudates, nose normal. [] Eyes: PERRLA, EOMI, conjunctiva normal, no discharge. [] Neck: Normal range of motion, no tenderness, supple, no stridor. [] Cardiovascular:Heart rate regular rhythm, no murmur []PMI to the left Lungs & Thorax: Bilateral breath sounds equal apexes few scattered wheezes auscultation [] Abdomen: Bowel sounds normal, soft, no tenderness, no masses, no pulsatile masses. Old scar. Skin: Warm, dry, no erythema, no rash. [] Back: No tenderness, no CVA tenderness. [] Extremities: No tenderness, no cyanosis, no clubbing, ROM intact, no edema. [] Arthritic changes Neurologic: Alert and oriented X 3, normal motor function, normal sensory function, no focal deficits noted. [] Psychologic: Affect anxious, judgement normal, mood normal. [] Current Patient Data Vital Signs Vital Signs Date Time Temp Pulse Resp B/P (MAP) Pulse Ox O2 Delivery O2 Flow Rate FiO2 11/19/18 21:21 83 20 142/62 (88) 100 Room Air 11/19/18 19:18 97.6 Lab Results Laboratory Tests Test 11/19/18 19:30 11/19/18 20:04 White Blood Count 7.4 x10^3/uL (4.0-11.0) Red Blood Count 2.74 x10^6/uL (3.50-5.40) L Hemoglobin 8.1 g/dL (12.0-15.5) L Hematocrit 25.2 % (36.0-47.0) L Mean Corpuscular Volume 92 fL (79-100) Mean Corpuscular Hemoglobin 29 pg (25-35) Mean Corpuscular Hemoglobin Concent 32 g/dL (31-37) Red Cell Distribution Width 18.7 % (11.5-14.5) H Platelet Count 224 x10^3/uL (140-400) Neutrophils (%) (Auto) 58 % (31-73) Lymphocytes (%) (Auto) 35 % (24-48) Monocytes (%) (Auto) 6 % (0-9) Eosinophils (%) (Auto) 1 % (0-3) Basophils (%) (Auto) 0 % (0-3) Neutrophils # (Auto) 4.3 x10^3uL (1.8-7.7) Lymphocytes # (Auto) 2.6 x10^3/uL (1.0-4.8) Monocytes # (Auto) 0.4 x10^3/uL (0.0-1.1) Eosinophils # (Auto) 0.1 x10^3/uL (0.0-0.7) Basophils # (Auto) 0.0 x10^3/uL (0.0-0.2) Prothrombin Time 17.0 SEC (9.4-11.4) H Prothrombin Time INR 1.8 (0.9-1.1) H PTT 37 SEC (23-33) H D-Dimer (Jocelin) 0.30 mg/L (0.00-0.50) Sodium Level 140 mmol/L (136-145) Potassium Level 3.4 mmol/L (3.5-5.1) L Chloride Level 105 mmol/L (98-107) Carbon Dioxide Level 24 mmol/L (21-32) Anion Gap 11 (6-14) Blood Urea Nitrogen 46 mg/dL (7-20) H Creatinine 1.0 mg/dL (0.6-1.0) Estimated GFR (Cockcroft-Gault) 53.8 Glucose Level 132 mg/dL (70-99) H Calcium Level 8.9 mg/dL (8.5-10.1) Magnesium Level 2.0 mg/dL (1.8-2.4) Total Bilirubin 0.4 mg/dL (0.2-1.0) Direct Bilirubin 0.1 mg/dL (0.0-0.2) Aspartate Amino Transferase (AST) 43 U/L (15-37) H Alanine Aminotransferase (ALT) 22 U/L (14-59) Alkaline Phosphatase 81 U/L (46-116) Creatine Kinase 58 U/L (26-192) Troponin I Quantitative < 0.017 ng/mL (0-0.055) VP-Phw-F-Type Natriuretic Peptide 129 pg/mL (0-449) Total Protein 6.1 g/dL (6.4-8.2) L Albumin 3.5 g/dL (3.4-5.0) Lipase 148 U/L (73-393) Urine Collection Type Unknown Urine Color Amanda Urine Clarity Cloudy Urine pH 5.5 Urine Specific [place] 1.020 Urine Protein Neg (NEG-TRACE) Urine Glucose (UA) Neg mg/dL (NEG) Urine Ketones (Stick) Neg mg/dL (NEG) Urine Blood Trace (NEG) Urine Nitrite Neg (NEG) Urine Bilirubin Neg (NEG) Urine Urobilinogen Dipstick 0.2 mg/dL (0.2 mg/dL) Urine Leukocyte Esterase Trace (NEG) Urine RBC Occ /HPF (0-2) Urine WBC Occ /HPF (0-4) Urine Squamous Epithelial Cells Occ /LPF Urine Bacteria Few /HPF (0-FEW) EKG EKG My interpretation EKG shows a sinus rhythm at 71 bpm. Left axis. No findings acute STEMI of contralateral changes.[] Radiology/Procedures Radiology/Procedures My interpretation of chest x-ray shows no acute cardiopulmonary findings. Does have findings of a hiatal hernia. Borderline cardiomegaly.[] Course & Med Decision Making Course & Med Decision Making Pertinent Labs and Imaging studies reviewed. (See chart for details) [] Final Impression Final Impression 1. Dyspnea[] 2. HTN 3. Hx. Afib 4. Hx. CHF 5. Hx. COPD 6. Anemia hemoglobin 8.1 7. Elevated BUN 46 8. Diabetes glucose 132 9. Hypokalemia 3.4 10. Hiatal hernia Dragon Disclaimer Dragon Disclaimer This electronic medical record was generated, in whole or in part, using a voice recognition dictation system. Discharge Summary Visit Information Final Diagnosis Problems Medical Problems: (1) Dyspnea Status: Acute Brief Hospital Course Allergies Allergies Coded Allergies Type Severity Reaction Last Updated Verified vancomycin Allergy Mild 06/19/18 Yes Vital Signs Vital Signs Date Time Temp Pulse Resp B/P (MAP) Pulse Ox O2 Delivery O2 Flow Rate FiO2 11/19/18 21:21 83 20 142/62 (88) 100 Room Air 11/19/18 19:18 97.6 Lab Results Laboratory Tests Test 11/19/18 19:30 11/19/18 20:04 White Blood Count 7.4 x10^3/uL (4.0-11.0) Red Blood Count 2.74 x10^6/uL (3.50-5.40) Hemoglobin 8.1 g/dL (12.0-15.5) Hematocrit 25.2 % (36.0-47.0) Mean Corpuscular Volume 92 fL (79-100) Mean Corpuscular Hemoglobin 29 pg (25-35) Mean Corpuscular Hemoglobin Concent 32 g/dL (31-37) Red Cell Distribution Width 18.7 % (11.5-14.5) Platelet Count 224 x10^3/uL (140-400) Neutrophils (%) (Auto) 58 % (31-73) Lymphocytes (%) (Auto) 35 % (24-48) Monocytes (%) (Auto) 6 % (0-9) Eosinophils (%) (Auto) 1 % (0-3) Basophils (%) (Auto) 0 % (0-3) Neutrophils # (Auto) 4.3 x10^3uL (1.8-7.7) Lymphocytes # (Auto) 2.6 x10^3/uL (1.0-4.8) Monocytes # (Auto) 0.4 x10^3/uL (0.0-1.1) Eosinophils # (Auto) 0.1 x10^3/uL (0.0-0.7) Basophils # (Auto) 0.0 x10^3/uL (0.0-0.2) Prothrombin Time 17.0 SEC (9.4-11.4) Prothromb Time International Ratio 1.8 (0.9-1.1) Activated Partial Thromboplast Time 37 SEC (23-33) D-Dimer (Jocelin) 0.30 mg/L (0.00-0.50) Sodium Level 140 mmol/L (136-145) Potassium Level 3.4 mmol/L (3.5-5.1) Chloride Level 105 mmol/L (98-107) Carbon Dioxide Level 24 mmol/L (21-32) Anion Gap 11 (6-14) Blood Urea Nitrogen 46 mg/dL (7-20) Creatinine 1.0 mg/dL (0.6-1.0) Estimated GFR (Cockcroft-Gault) 53.8 Glucose Level 132 mg/dL (70-99) Calcium Level 8.9 mg/dL (8.5-10.1) Magnesium Level 2.0 mg/dL (1.8-2.4) Total Bilirubin 0.4 mg/dL (0.2-1.0) Direct Bilirubin 0.1 mg/dL (0.0-0.2) Aspartate Amino Transf (AST/SGOT) 43 U/L (15-37) Alanine Aminotransferase (ALT/SGPT) 22 U/L (14-59) Alkaline Phosphatase 81 U/L (46-116) Creatine Kinase 58 U/L (26-192) Troponin I Quantitative < 0.017 ng/mL (0-0.055) HJ-Zhm-E-Type Natriuretic Peptide 129 pg/mL (0-449) Total Protein 6.1 g/dL (6.4-8.2) Albumin 3.5 g/dL (3.4-5.0) Lipase 148 U/L (73-393) Urine Collection Type Unknown Urine Color Amanda Urine Clarity Cloudy Urine pH 5.5 Urine Specific [place] 1.020 Urine Protein Neg (NEG-TRACE) Urine Glucose (UA) Neg mg/dL (NEG) Urine Ketones (Stick) Neg mg/dL (NEG) Urine Blood Trace (NEG) Urine Nitrite Neg (NEG) Urine Bilirubin Neg (NEG) Urine Urobilinogen Dipstick 0.2 mg/dL (0.2 mg/dL) Urine Leukocyte Esterase Trace (NEG) Urine RBC Occ /HPF (0-2) Urine WBC Occ /HPF (0-4) Urine Squamous Epithelial Cells Occ /LPF Urine Bacteria Few /HPF (0-FEW) Brief Hospital Course Ms. Diaz is a 78 old female who presented with dyspnea. Admitted to [facility]. Discharge Information Condition at Discharge: Improved Dischare Medications Current Medications Aspirin (Children'S Aspirin) 324 mg 1X ONCE PO Last administered on 11/19/18at 19:52; Admin Dose 324 MG; Start 11/19/18 at 19:30; Stop 11/19/18 at 19:31; Status DC Lactated Ringer's 1,000 ml @ 100 mls/hr Q10H IV Last administered on 11/19/18at 19:51; Admin Dose 100 MLS/HR; Start 11/19/18 at 19:17; Stop 11/20/18 at 05:16 Albuterol/ Ipratropium (Duoneb) 3 ml 1X ONCE NEB Last administered on at 20:11; Admin Dose 3 ML; Start 11/19/18 at 19:30; Stop 11/19/18 at 19:31; Status DC Acetaminophen (Tylenol) 1,000 mg 1X ONCE PO Last administered on 11/19/18at 22:17; Admin Dose 1,000 MG; Start 11/19/18 at 22:15; Stop 11/19/18 at 22:16; Status DC Active Scripts Active Medrol (Methylprednisolone) 4 Mg Tab.ds.pk 1 Pkg PO UD Doxycycline Hyclate 100 Mg Tablet 1 Tab PO BID Duoneb 0.5-3(2.5) Mg/3 Ml (Albuterol/Ipratropium) 3 Ml Ampul.neb 3 Ml NEB QID 30 Days Reported Atorvastatin Calcium 80 Mg Tablet 80 Mg PO QHS LAST DOSE GIVEN: DATE: YESTERDAY TIME: AT BEDTIME NEXT DOSE DUE: DATE: TODAY TIME: AT BEDTIME Methotrexate (Methotrexate Sodium) 2.5 Mg Tablet 5 Tab PO WEEKLY NOT GIVEN IN THE HOSPITAL NEXT DOSE DUE: DATE: RESTART ON YOUR REGULAR DAY Amiodarone Hcl 200 Mg Tablet 200 Mg PO DAILY LAST DOSE GIVEN: DATE: TODAY TIME: AM NEXT DOSE DUE: DATE: TOMORROW TIME: AM Plavix (Clopidogrel Bisulfate) 75 Mg Tablet 75 Mg PO DAILY LAST DOSE GIVEN: DATE: TODAY TIME: AM NEXT DOSE DUE: DATE: TOMORROW TIME: AM Aspirin 81 Mg Tab.chew 81 Mg PO DAILY LAST DOSE GIVEN: DATE: TODAY TIME: AM NEXT DOSE DUE: DATE: TOMORROW TIME: AM Folic Acid 1 Mg Tablet 1 Mg PO DAILY LAST DOSE GIVEN: DATE: TODAY TIME: AM NEXT DOSE DUE: DATE: TOMORROW TIME: AM Dragon Disclaimer This chart was dictated in whole or in part using Voice Recognition software in a busy, high-work load, and often noisy Emergency Department environment. It may contain unintended and wholly unrecognized errors or omissions. KAMILLA MENDOZA MD Nov 19, 2018 19:16
[2018-11-19] MEDS ORDERED: IV RINGERS SOLUTION,LACTATED 1,000 ML IV SCH (19:17)
[2018-11-19] MEDS ORDERED: ASPIRIN 81 MG TAB.CHEW PO ONE (19:30)
[2018-11-19] MEDS ORDERED: IPRATRPIUM/ALBUTEROL 0.5/2.5MG 3 ML NEBU. NEB ONE (19:30)
[2018-11-19 19:43] LABS: BASO % 0 % (0-3); EOS # 0.1 x10^3/uL (0.0-0.7); EOS % 1 % (0-3); HEMATOCRIT 25.2 % (36.0-47.0); HEMOGLOBIN 8.1 g/dL (12.0-15.5); LYMPH # 2.6 x10^3/uL (1.0-4.8); LYMPH % 35 % (24-48); MEAN CORPUSCULAR HEMOGLOBIN 29 pg (25-35); MEAN CORPUSCULAR HGB CONC 32 g/dL (31-37); MEAN CORPUSCULAR VOLUME 92 fL (79-100); MONO # 0.4 x10^3/uL (0.0-1.1); MONO % 6 % (0-9); NEUT # 4.3 x10^3uL (1.8-7.7); NEUT % 58 % (31-73); PLATELET COUNT 224 x10^3/uL (140-400); RED BLOOD COUNT 2.74 x10^6/uL (3.50-5.40); RED CELL DISTRIBUTION WIDTH 18.7 % (11.5-14.5); WHITE BLOOD COUNT 7.4 x10^3/uL (4.0-11.0)
--- NOTE | 2018-11-19 19:46 | EKG ---
[address] [address] Test Date: 2018-11-19 Test Time: 19:42:51 Pat Name: JACY COLON Department: Room: Gender: F Manager Machine: LILY : [id number] Requested By: KAMILLA MENDOZA Order Number: [id number] Reading MD: Measurements Intervals [place] Rate: 71 P: 27 ID: [id number] QRS: -16 QRSD: 94 T: 26 QT: 410 QTc: 446 Interpretive Statements SINUS RHYTHM LEFTWARD AXIS R-S TRANSITION ZONE IN V LEADS DISPLACED TO THE LEFT NO SPECIFIC ECG ABNORMALITIES RI6.01 Compared to ECG 08/30/2018 18:28:11 Left-axis deviation now present Myocardial infarct finding no longer present Atrial premature complex(es) no longer present
[2018-11-19 20:07] LABS: ALBUMIN 3.5 g/dL (3.4-5.0); CALCIUM 8.9 mg/dL (8.5-10.1); DIRECT BILIRUBIN 0.1 mg/dL (0.0-0.2); GFR 53.8; POTASSIUM 3.4 mmol/L (3.5-5.1); TOTAL BILIRUBIN 0.4 mg/dL (0.2-1.0); TOTAL PROTEIN 6.1 g/dL (6.4-8.2)
[2018-11-19 20:31] LABS: BACTERIA,URINE FEW /HPF (0-FEW); BILIRUBIN,URINE NEG (NEG); CLARITY,URINE CLOUDY; COLOR,URINE AMBER; GLUCOSE,URINE NEG (NEG); NITRITE,URINE NEG (NEG); RBC,URINE OCC /HPF (0-2); SQUAMOUS EPITHELIAL CELL,UR OCC /LPF; UROBILINOGEN,URINE 0.2 mg/dL (0.2 mg/dL); WBC,URINE OCC /HPF (0-4)
[2018-11-19] MEDS ORDERED: ACETAMINOPHEN 500 MG TABLET PO ONE (22:15)
[2018-11-19] MEDS ORDERED: ONDANSETRON PF 4 MG/2 ML VIAL. IV PRN (23:00)
[2018-11-20] VITALS (16 sets, daily range): BP systolic 106–172; BP diastolic 43–98
[2018-11-20] MEDS ORDERED: RIVA10TA PO (02:15)
--- NOTE | 2018-11-20 02:52 | NUR ---
Admission Note The patient, JACY COLON, 78 y/o, F admitted by HERBERT ZUNIGA MD, was given written information regarding hospital policies, unit procedures and contact persons. Belongings were checked and left in room. Home medications verified with patient. Bed locked and in lowest position, call light within reach.
[2018-11-20 05:47] LABS: CALCIUM 8.5 mg/dL (8.5-10.1); CREATININE 1.1 mg/dL (0.6-1.0); GFR 48.2; POTASSIUM 3.3 mmol/L (3.5-5.1)
[2018-11-20 05:54] LABS: BASO % 1 % (0-3); EOS # 0.1 x10^3/uL (0.0-0.7); EOS % 1 % (0-3); LYMPH % 37 % (24-48); MEAN CORPUSCULAR HEMOGLOBIN 30 pg (25-35); MEAN CORPUSCULAR HGB CONC 33 g/dL (31-37); MEAN CORPUSCULAR VOLUME 91 fL (79-100); MONO # 0.3 x10^3/uL (0.0-1.1); MONO % 6 % (0-9); NEUT # 3.1 x10^3uL (1.8-7.7); NEUT % 55 % (31-73); PLATELET COUNT 171 x10^3/uL (140-400); RED BLOOD COUNT 2.11 x10^6/uL (3.50-5.40); RED CELL DISTRIBUTION WIDTH 18.6 % (11.5-14.5); WHITE BLOOD COUNT 5.5 x10^3/uL (4.0-11.0)
[2018-11-20 06:00] LABS: HEMATOCRIT 19.2 % (36.0-47.0); HEMOGLOBIN 6.3 g/dL (12.0-15.5)
[2018-11-20] MEDS ORDERED: diphenhydrAMINE HCL 25 MG CAPSULE PO PRN (06:15)
[2018-11-20] MEDS ORDERED: PANTOPRAZOLE IV 40 MG VIAL. ONE (06:31)
[2018-11-20] MEDS: PANTOPRAZOLE IV 80 MG in IV NORMAL SALINE 100ML 100 ML IV SCH ×2 (07:14→17:19)
[2018-11-20] MEDS: ASPIRIN 325 MG TABLET PO SCH (07:43)
[2018-11-20] MEDS: AMIODARONE HCL 200 MG TABLET PO SCH (07:50)
[2018-11-20] MEDS: FOLIC ACID 1 MG TABLET PO SCH (07:50)
[2018-11-20] MEDS ORDERED: IPRATRPIUM/ALBUTEROL 0.5/2.5MG 3 ML NEBU. NEB SCH (08:00)
[2018-11-20] MEDS ORDERED: ELECTROLYTE (NON-ICU) PROTOCOL MC PRN (08:00)
--- NOTE | 2018-11-20 09:00 | NUR ---
blood tranfusion started at 0850. tubing primed with normal saline and then primed with blood. transfusion started at 65ml/hr, patient monitored closely for fifteen minutes. no traction noted, transfusion increased to 150ml/hr. pt call light within reach. will ctm.
[2018-11-20] MEDS: SUCRALFATE 1 GM TABLET. PO SCH ×4 (09:54→21:28)
[2018-11-20] MEDS: POTASSIUM CHLORIDE 20 MEQ TABLET.ER. PO SCH ×2 (09:54→20:36)
[2018-11-20] MEDS: IPRATRPIUM/ALBUTEROL 0.5/2.5MG 3 ML NEBU. NEB SCH ×4 (10:00→21:01)
[2018-11-20 10:40] LABS: THYROID STIM HORMONE (TSH) 3.472 uIU/mL (0.358-3.740)
--- NOTE | 2018-11-20 11:06 | HP ---
ADMIT DATE: HISTORY OF PRESENT ILLNESS: A 78-year-old female noted for the last 3 weeks, feeling weak and tired and the patient has also increased shortness of breath. Denied any fever, chills, cough. She denied abdominal pain. Denied any melena, hematochezia or hematemesis for that matter. The patient came in through the Emergency Room. She was admitted for dyspnea and further evaluation. However, her repeat CBC showed she had a drop in her hemoglobin. The patient denied any obvious bleeding. She denied any abdominal pain. The patient otherwise was stable. She was admitted for further evaluation and treatment. The patient was on Xarelto and Plavix for possible atrial fib; however, her EKG did not show any atrial fib at this time. PAST MEDICAL HISTORY: Heart attack, congestive heart failure, coronary stent placement in 12/2017, chronic anticoagulant therapy, bronchitis, COPD, kidney stones, urinary tract infection, rheumatoid arthritis, endocrine disorders, parathyroid disease, parathyroidectomy and smoking cessation last year. IMMUNIZATIONS: Unknown. FAMILY HISTORY: Brother and 2 sisters with heart attack. ALLERGIES: Vancomycin. MEDICATIONS: On admission shows doxycycline 100 mg a day b.i.d., methotrexate, DuoNeb treatments, Xarelto 10 mg daily, Plavix 75 daily, amiodarone 200 daily, Lipitor 80, aspirin 81, Medrol Dosepak and folic acid. REVIEW OF SYSTEMS: Outside of feeling weak, shortness of breath. She otherwise denies any other problems. PHYSICAL EXAMINATION: GENERAL: This is a pleasant white female. At the present time, in no apparent distress. VITAL SIGNS: Blood pressure 145/60, pulse 70, she is afebrile, respiratory rate 19. HEENT: The patient's head was atraumatic and normocephalic. Eyes: PERRL without jaundice. The mouth and throat were normal. NECK: Supple. No JVD or thyromegaly. LUNGS: Clear to auscultation. CARDIOVASCULAR: Regular sinus rhythm. S1 and S2. ABDOMEN: Soft, diffuse. No tenderness, no guarding, no rebounding. EXTREMITIES: No clubbing or cyanosis nor edema. GENITOURINARY: Normal female genitalia. NEUROLOGIC: Alert and oriented x 3. LABORATORY DATA: Hemoglobin of 6.3 and 19. White count 5, platelets normal. Potassium slightly low at 3.3. Coags do show the INR of 1.8. Apparently medication for reversing Xarelto is not available. IMPRESSION: In any case, anemia could be a chronic bleed since these things have been going on for 3 weeks, little dehydration. Take her off her Xarelto and Plavix for now and aspirin and blood transfusion and make further evaluation on her as indicated. HERBERT ZUNIGA MD DR: BERTA/eugene JOB#: [id number] / [id number]
--- NOTE | 2018-11-20 11:13 | RAD ---
EXAM: CHEST 2 VIEWS. HISTORY: Dyspnea. COMPARISON: 06/19/2018. FINDINGS: Frontal and lateral views of the chest are obtained. There are no confluent infiltrates. A calcified granuloma is noted in the left upper lobe. There is no pneumothorax or pleural effusion. The heart is not enlarged. There is a large hiatal hernia. IMPRESSION: 1. No confluent infiltrates. 2. Large hiatal hernia. Electronically signed by: Catrina Butcher MD (11/20/2018 11:10 AM) [facility]
[2018-11-20 12:31] LABS: RED BLOOD COUNT 2.08 x10^6/uL (3.50-5.40); RED CELL DISTRIBUTION WIDTH 16.8 % (11.5-14.5); WHITE BLOOD COUNT 5.1 x10^3/uL (4.0-11.0)
[2018-11-20 12:34] LABS: HEMATOCRIT 18.9 % (36.0-47.0); HEMOGLOBIN 6.2 g/dL (12.0-15.5)
[2018-11-20 13:21] LABS: FECAL OB PT NEGATIVE (NEG)
[2018-11-20] MEDS ORDERED: IOHEXOL 300 MG/ML 75 ML VIAL. IV ONE (14:15)
[2018-11-20] MEDS ORDERED: CONTRAST GIVEN MC PRN (14:15)
--- NOTE | 2018-11-20 15:03 | NUR ---
blood transfusion started at 1445. tubing primed with normal saline and then primed with blood. transfusion started at 65ml/hr, patient monitored closely for fifteen minutes. no traction noted, transfusion increased to 150ml/hr. pt call light within reach. will ctm.
--- NOTE | 2018-11-20 15:08 | RAD ---
EXAM: CT ABDOMEN/PELVIS WITH CONTRAST. HISTORY: Anemia. Assess for hemorrhage. TECHNIQUE: Computed tomography of the abdomen and pelvis was performed after the intravenous administration of iodinated contrast. COMPARISON: 09/12/2016. FINDINGS: Lung windows through the visualized portions of the bases reveal mild cystic change in the costophrenic angles suggesting interstitial lung disease. There is a large hiatal hernia with some gastric wall thickening. Bone windows reveal no suspicious lesions. A 5 mm calculus in the right renal lower pole measures 5 mm. As on the left measure 2 mm on the left. There is a small cyst in the right kidney. A 9 mm hypoattenuating lesion within hepatic segment 3 is most likely a benign cyst or hemangioma. Another subcentimeter lesion is seen in segment 8. A 7 mm right adrenal nodule is indeterminate by CT criteria but appears to been stable since 2017 and is likely a benign adenoma. The left adrenal gland is unremarkable. The pancreas, spleen and gallbladder is unremarkable. There appears to be moderate stenosis of the proximal superior mesenteric artery. There are no pathologically enlarged lymph nodes. Stool throughout the colon is consistent with constipation. There are changes of pelvic floor relaxation with a cystocele and bladder wall thickening. IMPRESSION: 1. There is no abdominal or pelvic hematoma or other evidence of active hemorrhage. 2. Large hiatal hernia. Gastric wall thickening. Correlate for gastritis. 3. Pelvic floor relaxation with a cystocele and bladder wall thickening. 4. Renal calculi measure up to 5 mm on the right. 5. Moderate superior mesenteric artery stenosis. 6. Correlate for constipation. 7. Mild interstitial lung disease and fibrosis in the costophrenic angles. 8. Stable right adrenal nodule consistent with a benign adenoma. *One or more of the following individualized dose reduction techniques were utilized for this examination: 1. Automated exposure control. 2. Adjustment of the mA and/or kV according to patient size. 3. Use of iterative reconstruction technique. Electronically signed by: Catrina Butcher MD (11/20/2018 3:05 PM) [facility]
[2018-11-20 17:59] LABS: HEMATOCRIT 20.7 % (36.0-47.0); RED BLOOD COUNT 2.27 x10^6/uL (3.50-5.40); RED CELL DISTRIBUTION WIDTH 15.8 % (11.5-14.5); WHITE BLOOD COUNT 4.7 x10^3/uL (4.0-11.0)
[2018-11-20 18:01] LABS: HEMOGLOBIN 6.8 g/dL (12.0-15.5)
[2018-11-20] MEDS: ACETAMINOPHEN 325 MG TABLET PO PRN (20:35)
[2018-11-20] MEDS: ATORVASTATIN CALCIUM 20 MG TABLET PO SCH (20:36)
[2018-11-21 00:05] LABS: HEMATOCRIT 23.8 % (36.0-47.0); HEMOGLOBIN 7.9 g/dL (12.0-15.5); RED BLOOD COUNT 2.66 x10^6/uL (3.50-5.40); RED CELL DISTRIBUTION WIDTH 16.3 % (11.5-14.5); WHITE BLOOD COUNT 5.9 x10^3/uL (4.0-11.0)
--- NOTE | 2018-11-21 00:07 | NUR ---
Blood Transfusion Blood transfusion started at 2009. Tubing primed with normal saline and then primed with blood. Transfusion started at 100ml/hr, patient monitored closely for fifteen minutes. No reaction noted, transfusion increased to 150ml/hr. Transfusion completed at 0. Patient tolerated transfusion well with no adverse reactions.
[2018-11-21] MEDS ORDERED: diphenhydrAMINE HCL 25 MG CAPSULE PO PRN (01:15)
[2018-11-21] MEDS: PANTOPRAZOLE IV 80 MG in IV NORMAL SALINE 100ML 100 ML IV SCH ×2 (03:08→12:02)
[2018-11-21] MEDS: IPRATRPIUM/ALBUTEROL 0.5/2.5MG 3 ML NEBU. NEB SCH ×4 (04:49→19:35)
[2018-11-21 05:00] VITALS: BP 126/54
[2018-11-21 06:23] LABS: BASO % 0 % (0-3); EOS # 0.2 x10^3/uL (0.0-0.7); EOS % 3 % (0-3); HEMATOCRIT 21.9 % (36.0-47.0); HEMOGLOBIN 7.2 g/dL (12.0-15.5); LYMPH % 38 % (24-48); MEAN CORPUSCULAR HEMOGLOBIN 30 pg (25-35); MEAN CORPUSCULAR HGB CONC 33 g/dL (31-37); MEAN CORPUSCULAR VOLUME 89 fL (79-100); MONO # 0.4 x10^3/uL (0.0-1.1); MONO % 7 % (0-9); NEUT # 2.6 x10^3uL (1.8-7.7); NEUT % 51 % (31-73); PLATELET COUNT 129 x10^3/uL (140-400); RED BLOOD COUNT 2.45 x10^6/uL (3.50-5.40); RED CELL DISTRIBUTION WIDTH 16.3 % (11.5-14.5); WHITE BLOOD COUNT 5.2 x10^3/uL (4.0-11.0)
[2018-11-21 06:26] LABS: CALCIUM 8.2 mg/dL (8.5-10.1); CREATININE 0.9 mg/dL (0.6-1.0); GFR 60.7; POTASSIUM 3.8 mmol/L (3.5-5.1)
--- NOTE | 2018-11-21 07:51 | NUR ---
This nurse verbally notified Dr. Ruffin of patient's reduced HGB level of 7.2, HGB dropped from 7.9 to 7.2 overnight, despite previously receiving 3 units of RBCs on 11/20/2018. Dr. Ruffin stated that he is on his way up to evaluate the patient. No new orders received at this time.
[2018-11-21] MEDS: ASPIRIN 325 MG TABLET PO SCH (08:11)
[2018-11-21] MEDS: AMIODARONE HCL 200 MG TABLET PO SCH (09:00)
[2018-11-21] MEDS: SUCRALFATE 1 GM TABLET. PO SCH ×4 (09:00→20:37)
[2018-11-21] MEDS: FOLIC ACID 1 MG TABLET PO SCH (09:01)
[2018-11-21] MEDS: POTASSIUM CHLORIDE 20 MEQ TABLET.ER. PO SCH ×2 (09:01→20:37)
[2018-11-21 10:48] VITALS: BP 100/55
[2018-11-21] MEDS: ACETAMINOPHEN 325 MG TABLET PO PRN ×2 (12:01→21:11)
[2018-11-21 12:33] LABS: HEMATOCRIT 23.3 % (36.0-47.0); HEMOGLOBIN 7.8 g/dL (12.0-15.5)
--- NOTE | 2018-11-21 13:12 | PN ---
DATE: SUBJECTIVE: The patient received another packed unit of RBCs last night. Her hemoglobin went up to 7.9, it is down to 7.2, although the patient says she feels much much better. OBJECTIVE: VITAL SIGNS: Basically stable, the last one in the chart is 126/54, respiratory rate 20, pulse 60, afebrile. GENERAL: The patient is alert and oriented, pale appearing. LUNGS: Diminished, but clear. CARDIOVASCULAR: Regular sinus rhythm. ABDOMEN: Soft, nontender, told to retain any bowel movement she has to recheck for blood in the stool, the first one and only one has been negative. PLAN: She is on Protonix, Carafate. CAT scan yesterday did demonstrate some gastric wall thickening, possible gastritis, but she has been on IV Protonix and Carafate presently to see if that not does not quell that. The iron level and retic count are still pending and I am still waiting to see those. We will repeat her H and H this afternoon and if it goes down again, we will just have to call [facility] again to see if they can accept her for possible evaluation, either GI or Hematology or someone to elicit her reason why she is so anemic at this time. The patient's anemia of unknown etiology at this time. HERBERT ZUNIGA MD DR: BERTA/eugene JOB#: [id number] / [id number]
[2018-11-21] MEDS: FERROUS SULFATE 325 MG TABLET. PO SCH (13:23)
[2018-11-21] MEDS: MULTIVITAMIN with MINERAL TABLET. PO SCH (13:23)
[2018-11-21 15:46] VITALS: BP 103/60
[2018-11-21 15:48] VITALS: BP 115/65
[2018-11-21 18:31] VITALS: BP 154/70
[2018-11-21] MEDS: DOCUSATE SODIUM 100 MG CAPSULE PO SCH (20:37)
[2018-11-21] MEDS: ATORVASTATIN CALCIUM 20 MG TABLET PO SCH (20:37)
[2018-11-21 22:56] VITALS: BP 114/70
[2018-11-22] VITALS (8 sets, daily range): BP systolic 95–139; BP diastolic 54–74
[2018-11-22] MEDS: PANTOPRAZOLE IV 80 MG in IV NORMAL SALINE 100ML 100 ML IV SCH ×2 (00:16→10:47)
[2018-11-22] MEDS: IPRATRPIUM/ALBUTEROL 0.5/2.5MG 3 ML NEBU. NEB SCH ×3 (04:50→16:00)
[2018-11-22 06:49] LABS: HEMATOCRIT 20.2 % (36.0-47.0)
[2018-11-22 06:59] LABS: HEMOGLOBIN 6.8 g/dL (12.0-15.5)
--- NOTE | 2018-11-22 07:15 | PDOC2 ---
CARDIAC CONSULT DATE OF CONSULT Date Of Consult DATE: 11/22/18 TIME: 07:11 REASON FOR CONSULT Reason for Consult Dyspnea Hypertension REFERRING PHYSICIAN Referring Physician Dr. Perez SOURCE Source: Chart review, Patient HPI History of Present Illness This is a 78 yo female who presented secondary to weakness/fatigue x 2-3 weeks. Family encouraged her to go the the ED, as she has not been herself lately. Denies any chest pain, palpitations, dizziness, diaphoresis, or nausea/vomiting. Does report some dyspnea as she is not able to take a deep breath due to back pain. Has a history of PAFIB and CAD s/p PCI/stent 12/2017. Following with Dr. Syed. Was taken off of ASA and started on Xarelto 1 weeks ago. Also takes Plavix for CAD. Noted to be anemic upon arrival. No obvious s/s of bleeding. PAST MEDICAL HISTORY Cardiovascular: AFIB, CAD, HTN Pulmonary: COPD Rheumatologic: Rheumatoid arthritis Renal/: UTI Endocrine: Hyperparathyroidism PAST SURGICAL HISTORY Past Surgical History: Other ( (x1), Other (right parathyroid removal. )) FAMILY HISTORY Family History: Heart Disease SOCIAL HISTORY Smoke: Quit (last year ) CURRENT MEDICATIONS Current Medications Current Medications Aspirin (Children'S Aspirin) 324 mg 1X ONCE PO Last administered on 11/19/18at 19:52; Start 11/19/18 at 19:30; Stop 11/19/18 at 19:31; Status DC Lactated Ringer's 1,000 ml @ 100 mls/hr Q10H IV Last administered on 11/19/18at 19:51; Start 11/19/18 at 19:17; Stop 11/20/18 at 05:16; Status DC Albuterol/ Ipratropium (Duoneb) 3 ml 1X ONCE NEB Last administered on 11/19/18at 20:11; Start 11/19/18 at 19:30; Stop 11/19/18 at 19:31; Status DC Acetaminophen (Tylenol) 1,000 mg 1X ONCE PO Last administered on 11/19/18at 22:17; Start 11/19/18 at 22:15; Stop 11/19/18 at 22:16; Status DC Ondansetron HCl (Zofran) 4 mg PRN Q4HRS PRN IV NAUSEA/VOMITING; Start 11/19/18 at 23:00; Stop 11/20/18 at 22:59; Status DC Albuterol/ Ipratropium (Duoneb) 3 ml RTQID NEB ; Start 11/20/18 at 08:00; Stop 11/20/18 at 08:00; Status DC Aspirin (Doug Aspirin) 325 mg DAILY PO ; Start 11/20/18 at 09:00; Stop 11/21/18 at 08:55; Status DC Acetaminophen (Tylenol) 650 mg PRN QID PRN PO pain Last administered on 11/21/18at 21:11; Start 11/20/18 at 06:15 Diphenhydramine HCl (Benadryl) 25 mg PRN QID PRN PO itching; Start 11/20/18 at 06:15 Albuterol/ Ipratropium (Duoneb) 3 ml RTQID NEB Last administered on 11/22/18at 04:50; Start 11/20/18 at 08:00 Amiodarone HCl (Cordarone) 200 mg DAILY PO Last administered on 11/20/18at 07:50; Start 11/20/18 at 09:00 Atorvastatin Calcium (Lipitor) 80 mg QHS PO Last administered on 11/21/18at 20:37; Start 11/20/18 at 21:00 Folic Acid (Folic Acid) 1 mg DAILY PO Last administered on 11/21/18at 09:01; Start 11/20/18 at 09:00 Pantoprazole Sodium 80 mg/ Sodium Chloride 100 ml @ 10 mls/hr Q10H IV Last administered on 11/22/18at 00:16; Start 11/20/18 at 06:30 Pantoprazole Sodium (Protonix Vial) 40 mg STK-MED ONCE .ROUTE ; Start 11/20/18 at 06:31; Stop 11/20/18 at 06:32; Status DC Info (Non-Icu Electrolyte Protocol) 1 ea CONT PRN PRN MC PER PROTOCOL; Start 11/20/18 at 08:00 Potassium Chloride (Klor-Con) 40 meq BID PO Last administered on 11/21/18at 20:37; Start 11/20/18 at 09:00 Sucralfate (Carafate) 1 gm QID PO Last administered on 11/21/18at 20:37; Start 11/20/18 at 09:00 Lorazepam (Ativan Inj) 0.5 mg PRN Q8HRS PRN IV ANXIETY / AGITATION Last adm inistered on 11/21/18at 21:15; Start 11/20/18 at 10:00 Iohexol (Omnipaque 300 Mg/ml) 75 ml 1X ONCE IV Last administered on 11/20/18at 14:24; Start 11/20/18 at 14:15; Stop 11/20/18 at 14:16; Status DC Info (Do NOT chart on this entry -- for MONITORING) 1 each PRN DAILY PRN MC SEE COMMENTS; Start 11/20/18 at 14:15; Stop 11/22/18 at 14:14 Diphenhydramine HCl (Benadryl) 25 mg PRN Q6HRS PRN PO ITCHING; Start 11/21/18 at 01:15; Stop 11/21/18 at 01:18; Status DC Ferrous Sulfate (Feosol) 325 mg DAILYWBKFT PO Last administered on 11/21/18at 13:23; Start 11/21/18 at 13:15 Multivitamins/ Calcium (Thera-M Plus) 1 tab DAILY PO Last administered on 11/21/18at 13:23; Start 11/21/18 at 13:15 Docusate Sodium (Colace) 100 mg BID PO Last administered on 11/21/18at 20:37; Start 11/21/18 at 21:00 Active Scripts Active Duoneb 0.5-3(2.5) Mg/3 Ml (Albuterol/Ipratropium) 3 Ml Ampul.neb 3 Ml NEB QID 30 Days Reported Atorvastatin Calcium 80 Mg Tablet 80 Mg PO QHS LAST DOSE GIVEN: DATE: YESTERDAY TIME: AT BEDTIME NEXT DOSE DUE: DATE: TODAY TIME: AT BEDTIME Methotrexate (Methotrexate Sodium) 2.5 Mg Tablet 5 Tab PO WEEKLY NOT GIVEN IN THE HOSPITAL NEXT DOSE DUE: DATE: RESTART ON YOUR REGULAR DAY Amiodarone Hcl 200 Mg Tablet 200 Mg PO DAILY LAST DOSE GIVEN: DATE: TODAY TIME: AM NEXT DOSE DUE: DATE: TOMORROW TIME: AM Folic Acid 1 Mg Tablet 1 Mg PO DAILY LAST DOSE GIVEN: DATE: TODAY TIME: AM NEXT DOSE DUE: DATE: TOMORROW TIME: AM ALLERGIES Allergies: Coded Allergies: vancomycin (Verified Allergy, Mild, 11/20/18) ROS Review of Systems 14 point ROS conducted with pertinent positives noted above in HPI PHYSICAL EXAM General: Alert, Oriented X3, Cooperative, No acute distress HEENT: Atraumatic, Mucous membr. moist/pink Lungs: Clear to auscultation Heart: Regular rate, Normal S1, Normal S2, No murmurs Abdomen: No tenderness Extremities: No edema, Normal pulses Neuro: Normal speech, Sensation intact Psych/Mental Status: Mental status NL, Mood NL MUSCULOSKELETAL: Osteoarthritic changes both hands VITALS Vital Signs Vital Signs Date Time Temp Pulse Resp B/P (MAP) Pulse Ox O2 Delivery O2 Flow Rate FiO2 11/22/18 05:40 97.8 64 18 95/54 (68) 96 Room Air LABS LABS Laboratory Tests Test 11/20/18 12:18 11/20/18 12:55 11/20/18 17:50 11/20/18 23:40 White Blood Count 5.1 x10^3/uL (4.0-11.0) 4.7 x10^3/uL (4.0-11.0) 5.9 x10^3/uL (4.0-11.0) Red Blood Count 2.01 x10^6/uL (3.50-5.40) 2.27 x10^6/uL (3.50-5.40) 2.66 x10^6/uL (3.50-5.40) Hemoglobin 6.2 g/dL (12.0-15.5) 6.8 g/dL (12.0-15.5) 7.9 g/dL (12.0-15.5) Hematocrit 18.9 % (36.0-47.0) 20.7 % (36.0-47.0) 23.8 % (36.0-47.0) Mean Corpuscular Volume 91 fL (79-100) 91 fL (79-100) 90 fL (79-100) Mean Corpuscular Hemoglobin 30 pg (25-35) 30 pg (25-35) 30 pg (25-35) Mean Corpuscular Hemoglobin Concent 33 g/dL (31-37) 33 g/dL (31-37) 33 g/dL (31-37) Red Cell Distribution Width 16.8 % (11.5-14.5) 15.8 % (11.5-14.5) 16.3 % (11.5-14.5) Platelet Count 157 x10^3/uL (140-400) 146 x10^3/uL (140-400) 159 x10^3/uL (140-400) Absolute Reticulocyte Count 0.061 x10^6/uL (0.020-0.120) Percent Reticulocyte Count 3.0 % (0.5-2.3) Immature Reticulocyte Fraction 0.62 (0.20-0.60) Stool Occult Blood Negative (NEG) Test 11/21/18 05:50 11/21/18 12:27 11/22/18 05:50 White Blood Count 5.2 x10^3/uL (4.0-11.0) Red Blood Count 2.45 x10^6/uL (3.50-5.40) Hemoglobin 7.2 g/dL (12.0-15.5) 7.8 g/dL (12.0-15.5) 6.8 g/dL (12.0-15.5) Hematocrit 21.9 % (36.0-47.0) 23.3 % (36.0-47.0) 20.2 % (36.0-47.0) Mean Corpuscular Volume 89 fL (79-100) Mean Corpuscular Hemoglobin 30 pg (25-35) Mean Corpuscular Hemoglobin Concent 33 g/dL (31-37) Red Cell Distribution Width 16.3 % (11.5-14.5) Platelet Count 129 x10^3/uL (140-400) Neutrophils (%) (Auto) 51 % (31-73) Lymphocytes (%) (Auto) 38 % (24-48) Monocytes (%) (Auto) 7 % (0-9) Eosinophils (%) (Auto) 3 % (0-3) Basophils (%) (Auto) 0 % (0-3) Neutrophils # (Auto) 2.6 x10^3uL (1.8-7.7) Lymphocytes # (Auto) 2.0 x10^3/uL (1.0-4.8) Monocytes # (Auto) 0.4 x10^3/uL (0.0-1.1) Eosinophils # (Auto) 0.2 x10^3/uL (0.0-0.7) Basophils # (Auto) 0.0 x10^3/uL (0.0-0.2) Sodium Level 141 mmol/L (136-145) Potassium Level 3.8 mmol/L (3.5-5.1) Chloride Level 109 mmol/L (98-107) Carbon Dioxide Level 25 mmol/L (21-32) Anion Gap 7 (6-14) Blood Urea Nitrogen 39 mg/dL (7-20) Creatinine 0.9 mg/dL (0.6-1.0) Estimated GFR (Cockcroft-Gault) 60.7 Glucose Level 98 mg/dL (70-99) Calcium Level 8.2 mg/dL (8.5-10.1) ECHOCARDIOGRAM Echocardiogram <Conclusion> The left ventricular systolic function is normal. The Ejection Fraction is 60-65%. There is normal LV segmental wall motion. Mild mitral regurgitation. Trace to mild tricuspid regurgitation. The PASP is 41mmHg. There is no evidence of significant pericardial effusion. DATE: 09/29/171638 ASSESSMENT/PLAN Assessment/Plan 1. Dyspnea in the setting of anemia. 2. Anemia; s/p 3 units PRBCs. Hgb 6.8 this morning 3. Chronic diastolic HF; clinically compensated 4. CAD s/p PCI/stent 12/2017. CP free 5. PAFIB; Xarelto started last week. Maintaining SR on Amiodarone. 6. Hypertension; controlled Recommendations Stop Plavix, Xarelto PPI Transfuse as warranted Continue Amiodarone for rhythm maintenance Statin therapy ASA when hgb consistently stable Supportive care Follow up with primary child care sitter, Dr. Syed upon discharge. SUMA GLASGOW APRN Nov 22, 2018 07:15
[2018-11-22] MEDS: SUCRALFATE 1 GM TABLET. PO SCH ×3 (07:50→17:02)
[2018-11-22 08:02] LABS: ALBUMIN 2.4 g/dL (3.4-5.0); ALBUMIN/GLOBULIN RATIO 1.1 (1.0-1.7); CALCIUM 7.8 mg/dL (8.5-10.1); CREATININE 0.8 mg/dL (0.6-1.0); GFR 69.6; POTASSIUM 4.2 mmol/L (3.5-5.1); TOTAL BILIRUBIN 0.5 mg/dL (0.2-1.0); TOTAL PROTEIN 4.5 g/dL (6.4-8.2)
[2018-11-22 08:23] LABS: BASO % 1 % (0-3); EOS # 0.2 x10^3/uL (0.0-0.7); EOS % 6 % (0-3); HEMATOCRIT 21.6 % (36.0-47.0); HEMOGLOBIN 7.2 g/dL (12.0-15.5); LYMPH # 1.5 x10^3/uL (1.0-4.8); LYMPH % 37 % (24-48); MEAN CORPUSCULAR HEMOGLOBIN 30 pg (25-35); MEAN CORPUSCULAR HGB CONC 33 g/dL (31-37); MEAN CORPUSCULAR VOLUME 91 fL (79-100); MONO # 0.2 x10^3/uL (0.0-1.1); MONO % 6 % (0-9); NEUT # 2.1 x10^3uL (1.8-7.7); NEUT % 51 % (31-73); PLATELET COUNT 142 x10^3/uL (140-400); RED BLOOD COUNT 2.38 x10^6/uL (3.50-5.40); RED CELL DISTRIBUTION WIDTH 16.4 % (11.5-14.5); WHITE BLOOD COUNT 4.1 x10^3/uL (4.0-11.0)
[2018-11-22] MEDS: DOCUSATE SODIUM 100 MG CAPSULE PO SCH (08:30)
[2018-11-22] MEDS: POTASSIUM CHLORIDE 20 MEQ TABLET.ER. PO SCH (08:31)
[2018-11-22] MEDS: MULTIVITAMIN with MINERAL TABLET. PO SCH (08:31)
[2018-11-22] MEDS: AMIODARONE HCL 200 MG TABLET PO SCH (08:31)
[2018-11-22] MEDS: FERROUS SULFATE 325 MG TABLET. PO SCH (08:31)
[2018-11-22] MEDS: FOLIC ACID 1 MG TABLET PO SCH (08:31)
[2018-11-22] MEDS: ACETAMINOPHEN 325 MG TABLET PO PRN (08:31)
[2018-11-22] MEDS ORDERED: diphenhydrAMINE HCL 25 MG CAPSULE PO ONE (12:15)
[2018-11-22] MEDS ORDERED: ACETAMINOPHEN 325 MG TABLET PO ONE (12:30)
--- NOTE | 2018-11-22 15:59 | NUR ---
NSG NOTE; ONE UNIT PRBC TRANSFUSION BLOOD TUBING PRIMED WITH NS THEN BLOOD TRANSFUSION STARTED AT 1307 AT 75 ML/HR I STAYED AT BEDSIDE X 15 MIN- NO S/S OF TRANSFUSION REACTION NOTED TRANSFUSION RATE INCREASED TO 150 ML/HR AT THAT TIME TRANSFUSION COMPLETED AT 1524 LINE FLUSHED WITH NS AND DC'D PT PAMELLA PROCEDURE WELL
--- NOTE | 2018-11-22 16:39 | PN ---
DATE: SUBJECTIVE: The patient is resting fairly comfortably. He looks very pale, very weak today. Hemoglobin has dropped down to 7.2, it was down to 6.8, now it is back up to 7.2, repeat. Anyway, I have called second time, the patient requests to be transferred. Blood pressure is low at 95/54, so it is come up a little bit. Otherwise, blood pressure is still low. PHYSICAL EXAMINATION: VITAL SIGNS: Blood pressure is still at 95/54, respiratory rate 18, pulse 64. GENERAL: The patient is alert and oriented. LUNGS: Diminished, but clear. CARDIOVASCULAR: Regular sinus rhythm. ABDOMEN: Soft, nontender. LABORATORY DATA: Labs were noted. No increase in bilirubin and liver enzymes are down to normal. The patient is low on her albumin. We will continue to monitor the patient accordingly. Hopefully, ready for possible transfer down to , may need to be taken off her amiodarone. We will leave that up to Cardiology as well as the other medications than she has been on. IMPRESSION: Anemia of unknown etiology, severe protein malnutrition. PLAN: As above. HERBERT ZUNIGA MD DR: BERTA/eugene JOB#: [id number] / [id number]
--- NOTE | 2018-11-22 18:24 | NUR ---
NSG NOTE; TRANSFER TO [facility]PORT CALLED TO SUMA BERMAN AT 1748 PAPER COPY OF CHART SENT WITH PT FAMILY TOOK PT'S CLOTHES HOME WITH THEM DISCHARGED TO [facility] AT 1814 VIA CART ACCOMP BY EMS PERSONNEL
--- NOTE | 2018-11-24 12:13 | DS ---
DATE OF DISCHARGE: 11/22/2018 HOSPITAL COURSE: A 78-year-old female who came in initially feeling weak and tired. Her hemoglobin dropped from approximately 8 down into 6.2, received 2 units of packed RBCs, did not do much for her hemoglobin, went back up and we gave her a third unit packed RBCs. Scans showed possible gastritis or Hemoccults were negative. There were attempts to transfer her to and they said to discontinue transfusion as I did not see any acute need for her to be transferred. The patient's blood pressure did drop and there was concern. We tried to transfer to [place], the family refused and we had to make several attempts at other hospitals to accept her in transfer, some of which were on diversion. In any case, we finally got her transferred down to [facility] which was acceptable. Her last hemoglobin here was 7.2 and 21. Her chemistries were basically all within normal limits. Albumin was slightly low at 2.4. Her iron levels were normal. Thyroid was normal. She has slightly low potassium. Bilirubins were normal. Liver enzymes were basically ended up being normal. Iron level was within range as was her retic count, somewhat of a mystery why she was so anemic. May need a bone marrow, but in any case, we did not have that facility here or capabilities so she was transferred. IMPRESSION: 1. Acute anemia of unknown etiology, rheumatoid arthritis, hypokalemia, moderate to severe protein malnutrition. 2. Acute renal failure, chronic tubular stasis. PLAN: The patient is transferred via EMS down to [facility]. HERBERT ZUNIGA MD DR: BERTA/eugene JOB#: [id number] / [id number]
== END 2018-11-22 18:15 | disposition short-term general hospital (02) | DRG 811 ==
LOC: ER 19:14 → 1 SOUTH 22:30
PROVIDERS: ADMIT Family Medicine; ATTEND Family Medicine
PROC: 30233N1 Transfusion of Nonautologous Red Blood Cells into Peripheral Vein, Percutaneous Approach (ICD-10-PCS; principal; 2018-11-20)
DX: D64.9 Anemia, unspecified (principal); E43 Unspecified severe protein-calorie malnutrition; I50.32 Chronic diastolic (congestive) heart failure; I13.0 Hypertensive heart and chronic kidney disease with heart failure and stage 1 through stage 4 chronic kidney disease, or unspecified chronic kidney disease; N17.9 Acute kidney failure, unspecified; E11.9 Type 2 diabetes mellitus without complications; E86.0 Dehydration; I25.10 Atherosclerotic heart disease of native coronary artery without angina pectoris; J44.9 Chronic obstructive pulmonary disease, unspecified; I48.0 Paroxysmal atrial fibrillation; M06.9 Rheumatoid arthritis, unspecified; E21.3 Hyperparathyroidism, unspecified; F41.9 Anxiety disorder, unspecified; M19.90 Unspecified osteoarthritis, unspecified site; Z79.02 Long term (current) use of antithrombotics/antiplatelets; I25.2 Old myocardial infarction; Z82.49 Family history of ischemic heart disease and other diseases of the circulatory system; Z87.442 Personal history of urinary calculi; Z87.891 Personal history of nicotine dependence; Z95.5 Presence of coronary angioplasty implant and graft; Z87.01 Personal history of pneumonia (recurrent); Z88.1 Allergy status to other antibiotic agents; Z68.32 Body mass index [BMI] 32.0-32.9, adult; E87.6 Hypokalemia; E11.22 Type 2 diabetes mellitus with diabetic chronic kidney disease; N18.9 Chronic kidney disease, unspecified
CPT/HCPCS: 36415; 71046; 74177; 80048; 80053; 80061; 80076; 81001; 82274; 82550; 83540; 83605; 83690; 83735; 83880; 84443; 84484; 85014; 85018; 85025; 85027; 85045; 85379; 85384; 85610; 85730; 86850; 86900; 86901; 86920; 87086; 93005; 94640; 96360; 96361; C9113; J2060; J7120; J7620; P9016; Q9967; 99285-25

== ENCOUNTER → 2019-06-15 | Outpatient (CLI) | payer MEDICARE, OTHER ==
[2018-11-22 16:21] VITALS: BP 117/66
[~2019-06-15] MED LIST changes: +RIVA10TA PO
[2019-06-15 11:39] LABS: ALBUMIN 3.4 g/dL (3.4-5.0); ALBUMIN/GLOBULIN RATIO 1.2 (1.0-1.7); CREATININE 1.1 mg/dL (0.6-1.0); TOTAL BILIRUBIN 0.6 mg/dL (0.2-1.0); TOTAL PROTEIN 6.3 g/dL (6.4-8.2)
[2019-06-15 20:11] LABS: FREE T4 1.46 ng/dL (0.76-1.46); THYROID STIM HORMONE (TSH) 4.725 uIU/mL (0.358-3.740)
== END | disposition home or self-care (01) ==
LOC: LAB 10:45
PROVIDERS: ATTEND Internal Medicine Cardiovascular Disease
DX: I25.10 Atherosclerotic heart disease of native coronary artery without angina pectoris (principal); E78.5 Hyperlipidemia, unspecified; I48.0 Paroxysmal atrial fibrillation
CPT/HCPCS: 80053; 80061; 84439; 84443

== ENCOUNTER → 2019-06-15 | Outpatient (CLI) | payer MEDICARE, OTHER ==
[2018-11-22 16:21] VITALS: BP 117/66
[2019-06-15 11:12] LABS: BASO % 1 % (0-3); EOS # 0.2 x10^3/uL (0.0-0.7); EOS % 4 % (0-3); HEMATOCRIT 27.7 % (36.0-47.0); LYMPH # 1.4 x10^3/uL (1.0-4.8); LYMPH % 24 % (24-48); MEAN CORPUSCULAR HEMOGLOBIN 34 pg (25-35); MEAN CORPUSCULAR HGB CONC 33 g/dL (31-37); MEAN CORPUSCULAR VOLUME 104 fL (79-100); MONO # 0.4 x10^3/uL (0.0-1.1); MONO % 7 % (0-9); NEUT # 3.6 x10^3uL (1.8-7.7); NEUT % 63 % (31-73); PLATELET COUNT 225 x10^3/uL (140-400); RED BLOOD COUNT 2.67 x10^6/uL (3.50-5.40); RED CELL DISTRIBUTION WIDTH 19.9 % (11.5-14.5); WHITE BLOOD COUNT 5.7 x10^3/uL (4.0-11.0)
[2019-06-15 11:37] LABS: ALBUMIN 3.4 g/dL (3.4-5.0); ALBUMIN/GLOBULIN RATIO 1.2 (1.0-1.7); C REACTIVE PROTEIN 1.2 mg/L (0-3.3); CREATININE 1.1 mg/dL (0.6-1.0); TOTAL BILIRUBIN 0.6 mg/dL (0.2-1.0); TOTAL PROTEIN 6.3 g/dL (6.4-8.2)
[2019-06-15 13:43] LABS: SEDIMENTATION RATE 12 (0-25)
== END | disposition home or self-care (01) ==
LOC: LAB 10:39
PROVIDERS: ATTEND Specialist
DX: M05.79 Rheumatoid arthritis with rheumatoid factor of multiple sites without organ or systems involvement (principal)
CPT/HCPCS: 36415; 80053; 85025; 85651; 86140

== ENCOUNTER → 2020-05-21 | Outpatient (CLI) | payer MEDICARE, OTHER ==
[2018-11-22 16:21] VITALS: BP 117/66
[~2020-05-21] MED LIST changes: -AMIO200T4 PO; +AMIO200T6 PO; -NABU750T PO; +NABU750T7 PO
--- NOTE | 2020-05-21 18:11 | RAD ---
CT ABDOMEN+PELVIS WO INDICATION: Reason: Hematuria, lower back pain / Spl. Instructions: / History: EXAM: Noncontrast CT of the abdomen and pelvis. Coronal and sagittal reformatted images were perform ed. PQRS compliance statement: One or more of the following individualized dose reduction techniques were utilized for this examinat ion: 1. Automated exposure control 2. Adjustment of the mA and/or kV according to patient size 3. Use of iterative reconstruction technique COMPARISON: Hematuria, back pain FINDINGS: No free air, free fluid, or fluid collection. Lower chest: The visualized lower lungs are aerated. No pleural or pericardial effusion. ABDOMEN: Liver: The noncontrast liver is homogeneous in attenuation. Gallbladder and biliary: Cholelithiasis. Normal caliber bile ducts. Spleen: Normal spleen. Pancreas: The noncontrast pancreas is homogeneous in attenuation without peripancreatic inflammatory changes. Adrenal glands: Stable right adrenal nodularity Kidneys and ureters: No hydronephrosis. Bilateral nonobstructive renal calculi. GI tract: Moderate-sized hiatal hernia. Normal caliber small bowel and colon. Normal appendix. Vascular structures: Normal caliber abdominal aorta. Diffuse aortoiliac atherosclerotic disease. Lymph nodes: No lymphadenopathy in the abdomen or pelvis. PELVIS: Genitourinary system: Mild circumference bladder wall thickening. Uterus is present. SKELETAL STRUCTURES AND SOFT TISSUES: Degenerative changes of the spine. Left convex lumbar curvature . IMPRESSION: 1. Bilateral nonobstructive renal calculi. No hydronephrosis. 2. Mild circumferential bladder wall thickening, which may represent cystitis. Consider urinalysis. 3. Cholelithiasis. 4. Moderate-sized hiatal hernia. Electronically signed by: Nabeel Walter MD (05/21/2020 6:08 PM) [facility]
== END ==
LOC: CT 17:01
PROVIDERS: ATTEND Family Medicine
DX: N20.0 Calculus of kidney (principal); K80.20 Calculus of gallbladder without cholecystitis without obstruction; K44.9 Diaphragmatic hernia without obstruction or gangrene; R31.9 Hematuria, unspecified
CPT/HCPCS: 74176

== ENCOUNTER 2020-05-23 14:07 | Inpatient (IN) | payer MEDICARE, OTHER ==
[~2020-05-23] VITALS: Ht 162.6 cm; Wt 92.7 kg
--- NOTE | 2020-05-23 15:07 | RAD ---
XR CHEST 1V INDICATION: Reason: dizzy / Spl. Instructions: / History: . COMPARISON STUDY: 11/19/2018. FINDINGS: Left pectoral transvenous dual chamber pacemaker with leads overlying the right atrium and right vent ricle. Lungs: Normal lung volume. No pulmonary mass or consolidation. The tracheobronchial tree and hilar st ructures are normal. Pleura: No pleural effusion or pneumothorax. Heart and Mediastinum: Cardiomegaly. The great vessels of the thorax are normal. Large hiatal hernia. IMPRESSION: Left pectoral pacemaker. No pneumothorax. Large hiatal hernia. Electronically signed by: Nabeel Walter MD (05/23/2020 3:05 PM) [facility]
[2020-05-23 15:19] LABS: BASO % 0 % (0-3); EOS # 0.3 x10^3/uL (0.0-0.7); EOS % 7 % (0-3); HEMATOCRIT 25.7 % (36.0-47.0); HEMOGLOBIN 7.8 g/dL (12.0-15.5); LYMPH # 1.1 x10^3/uL (1.0-4.8); LYMPH % 26 % (24-48); MEAN CORPUSCULAR HEMOGLOBIN 28 pg (25-35); MEAN CORPUSCULAR HGB CONC 30 g/dL (31-37); MEAN CORPUSCULAR VOLUME 93 fL (79-100); MONO # 0.3 x10^3/uL (0.0-1.1); MONO % 8 % (0-9); NEUT # 2.4 x10^3uL (1.8-7.7); NEUT % 59 % (31-73); PLATELET COUNT 222 x10^3/uL (140-400); RED BLOOD COUNT 2.77 x10^6/uL (3.50-5.40); RED CELL DISTRIBUTION WIDTH 18.4 % (11.5-14.5); WHITE BLOOD COUNT 4.1 x10^3/uL (4.0-11.0)
[2020-05-23 15:28] LABS: CALCIUM 9.4 mg/dL (8.5-10.1); CREATININE 1.1 mg/dL (0.6-1.0); GFR 47.9; POTASSIUM 4.4 mmol/L (3.5-5.1)
--- NOTE | 2020-05-23 15:28 | EKG ---
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
[2020-05-23 15:33] LABS: ALBUMIN 3.4 g/dL (3.4-5.0); ALBUMIN/GLOBULIN RATIO 1.1 (1.0-1.7); TOTAL BILIRUBIN 0.4 mg/dL (0.2-1.0); TOTAL PROTEIN 6.4 g/dL (6.4-8.2)
[2020-05-23] MEDS ORDERED: IOHEXOL 350 MG/ML 100 ML VIAL. IV ONE (15:45)
--- NOTE | 2020-05-23 16:29 | RAD ---
Examination: CT HEAD/BRAIN WO History: dizziness, concern for subacute stroke Comparison/Correlation: None Findings: Axial images of the head were obtained without contrast. Marked atrophy is present. No intr acranial hemorrhage, midline shift, or mass effect. Ventricles are normal size. Bony structures are u nremarkable. Cavernous carotid calcifications are present. Impression: No suspicious process. PQRS Compliance Statement: One or more of the following individualized dose reduction techniques were utilized for this examinat ion: 1. Automated exposure control 2. Adjustment of the mA and/or kV according to patient size 3. Use of iterative reconstruction technique Electronically signed by: Fabian Wing MD (05/23/2020 4:27 PM) [id number]
--- NOTE | 2020-05-23 16:43 | RAD ---
Examination: CTA HEAD AND NECK W/WO CONTRAST History: dizziness, concern for subacute stroke Comparison/Correlation: None TECHNIQUE: Computed tomographic angiography of the head and neck was performed following IV contrast according to arteriography protocol. Three-dimensional reconstructions were also performed. Maximum i ntensity projection images were provided. FINDINGS: Diffuse atheromatous and calcific involvement is identified involving the great vessels of the aortic arch and the internal carotid arteries above the bulb region as well as of the cavernous carotid lev el. Angiographic findings: The aortic arch has a typical branching pattern. There is no arch vessel steno sis. Both common carotid arteries are patent without significant stenosis. Both internal carotid arteries are patent without stenosis. The external carotid systems are patent. There is notable redundancy and tortuosity of the right and to a lesser extent left internal carotid arteries at the upper cervical spine level. The vertebral arteries are patent. Left vertebral artery arises from the aortic arch. The basilar artery is patent. Both posterior cerebral arteries are patent. The posterior communicatin g arteries are developmentally absent. The intracranial internal carotid arteries demonstrate no stenosis. The middle cerebral arteries are patent. The anterior cerebral arteries are patent. The anterior communicating artery is visualized. Nonangiographic findings: There is no intracranial hemorrhage. Huerta-white differentiation is preserve d. The ventricles are normal in size and position. Atrophy is advanced. No abnormal enhancement ident ified. Chronic ischemic changes of the matter. The paranasal sinuses appear clear. The orbits are unremarkable. The temporal bones are unremarkable. Bone windows reveal advanced degenerative disc space narrowing from C3 to C7. Disc osteophyte comple x at C3-4 and C4-5 in particular are seen. The lung apices demonstrate no acute abnormality. The parotid glands and submandibular glands are unremarkable. The thyroid gland demonstrates no suspi cious lesions. Calcified granulomas involving the right thyroid lobe. There are no laryngeal or pharyngeal masses. There are no pathologically enlarged lymph nodes. Incide ntal note is made of left-sided pacemaker and associated leads. IMPRESSION: No significant stenoses involving the visualized arterial vasculature. Atheromatous and calcific invo lvement is seen without significant stenosis. PQRS Compliance Statement - Stenosis calculations for CT, MR and conventional angiography are based u grace measurement of the distal ICA diameter in accordance with the NASCET methodology. Stenosis calcu lations for carotid ultrasound studies are derived from validated velocity criteria which are known t o correlate with the NASCET methodology. *One or more of the following individualized dose reduction techniques were utilized for this examina tion: 1. Automated exposure control. 2. Adjustment of the mA and/or kV according to patient size. 3. Use of iterative reconstruction technique. Electronically signed by: Fabian Wing MD (05/23/2020 4:41 PM) [id number]
--- NOTE | 2020-05-23 16:44 | PHYS DOC ---
Past History Past Medical History: A-Fib, Arthritis, CHF, COPD, Kidney Stones, ID, UTI Past Surgical History: , Pacemaker, Other Additional Past Surgical Histo: ureter stent Smoking: Cigarettes Alcohol Use: None Drug Use: None Adult General Chief Complaint Chief Complaint: DIZZY/LIGHT HEADED [facility] HPI Patient is a 80-year-old female who presents to the emergency room complaining of severe disbalance since Thursday. She states she woke up with this. It is significantly worse if she tries to get up and move around. She states that do ing stairs is almost impossible. She is never had anything like this prior. She states that she is unable to describe exactly the feeling she is having. She denies any chest pain, shortness of breath, URI symptoms, change of smell, change of taste. She denies any kind of headache or trauma. She talked to her primary care physician today who recommended she come to the emergency room to have a CT of her head done to evaluate for subacute stroke. Review of Systems Review of Systems Complete ROS is negative unless otherwise documented in HPI Current Medications Current Medications Current Medications Medications (Trade) Dose Ordered Sig/Osvaldo Start Time Stop Time Status Last Admin Dose Admin Iohexol (Omnipaque 350 Mg/ml) 100 ml 1X ONCE 05/23/20 15:45 05/23/20 15:46 DC 05/23/20 15:58 100 ML Allergies Allergies Allergies Coded Allergies Type Severity Reaction Last Updated Verified vancomycin Allergy Mild 11/20/18 Yes Physical Exam Physical Exam General: Awake, alert, NAD. Well Nourished, well hydrated. Cooperative HEENT: Atraumatic, EOMI, PERRL, airway patent, moist oral mucosa Neck: Supple, trachea midline Respiratory: CTA bilaterally, normal effort, no wheezing/crackles CV: RRR, no murmur, cap refill <2 GI: Soft, nondistended, nontender, no masses MSK: No obvious deformities Skin: Warm, dry, intact Neuro: A&O x3, speech NL, sensory and motor grossly intact, no focal deficits Psych: Normal affect, normal mood, not suicidal or homicidal Current Patient Data Vital Signs Vital Signs Date Time Temp Pulse Resp B/P (MAP) Pulse Ox O2 Delivery O2 Flow Rate FiO2 05/23/20 14:16 97.8 71 16 151/63 (92) 97 Lab Results Laboratory Tests Test 05/23/20 15:00 White Blood Count 4.1 x10^3/uL (4.0-11.0) Red Blood Count 2.77 x10^6/uL (3.50-5.40) L Hemoglobin 7.8 g/dL (12.0-15.5) L Hematocrit 25.7 % (36.0-47.0) L Mean Corpuscular Volume 93 fL (79-100) Mean Corpuscular Hemoglobin 28 pg (25-35) Mean Corpuscular Hemoglobin Concent 30 g/dL (31-37) L Red Cell Distribution Width 18.4 % (11.5-14.5) H Platelet Count 222 x10^3/uL (140-400) Neutrophils (%) (Auto) 59 % (31-73) Lymphocytes (%) (Auto) 26 % (24-48) Monocytes (%) (Auto) 8 % (0-9) Eosinophils (%) (Auto) 7 % (0-3) H Basophils (%) (Auto) 0 % (0-3) Neutrophils # (Auto) 2.4 x10^3uL (1.8-7.7) Lymphocytes # (Auto) 1.1 x10^3/uL (1.0-4.8) Monocytes # (Auto) 0.3 x10^3/uL (0.0-1.1) Eosinophils # (Auto) 0.3 x10^3/uL (0.0-0.7) Basophils # (Auto) 0.0 x10^3/uL (0.0-0.2) Sodium Level 140 mmol/L (136-145) Potassium Level 4.4 mmol/L (3.5-5.1) Chloride Level 107 mmol/L (98-107) Carbon Dioxide Level 27 mmol/L (21-32) Anion Gap 6 (6-14) Blood Urea Nitrogen 22 mg/dL (7-20) H Creatinine 1.1 mg/dL (0.6-1.0) H Estimated GFR (Cockcroft-Gault) 47.9 BUN/Creatinine Ratio 20 (6-20) Glucose Level 109 mg/dL (70-99) H Calcium Level 9.4 mg/dL (8.5-10.1) Total Bilirubin 0.4 mg/dL (0.2-1.0) Aspartate Amino Transferase (AST) 46 U/L (15-37) H Alanine Aminotransferase (ALT) 25 U/L (14-59) Alkaline Phosphatase 85 U/L (46-116) Troponin I Quantitative < 0.017 ng/mL (0-0.055) Total Protein 6.4 g/dL (6.4-8.2) Albumin 3.4 g/dL (3.4-5.0) Albumin/Globulin Ratio 1.1 (1.0-1.7) EKG EKG [] Radiology/Procedures Radiology/Procedures [] Heart Score Risk Factors: Risk Factors: DM, Current or recent (<one month) smoker, HTN, HLP, family history of CAD, obesity. Risk Scores: Risk Factors: DM, Current or recent (<one month) smoker, HTN, HLP, family history of CAD, obesity. Course & Med Decision Making Course & Med Decision Making Pertinent Labs and Imaging studies reviewed. (See chart for details) Patient is a 80-year-old female who presents to the emergency room complaining of dizziness that started yesterday. She has never had anything similar. Is possible that she could have had a subacute stroke. CT and CT angio was ordered. CT and CT angio were normal. Lab work does suggest some dehydration. Patient was given fluids and meclizine. Patient was walked after her medication and on reevaluation Dragon Disclaimer Dragon Disclaimer This electronic medical record was generated, in whole or in part, using a voice recognition dictation system. Departure Departure: Impression: Primary Impression: Dizziness Referrals: HERBERT ZUNIGA MD (PCP) Patient Instructions: Dizziness Scripts Meclizine Hcl (MECLIZINE HCL) 25 Mg Tablet 1 TAB PO TID PRN for dizziness, #90 TAB Prov: POOL RODRIGUEZ MD 05/23/20 POOL RODRIGUEZ MD May 23, 2020 16:44
[2020-05-23] MEDS ORDERED: IV NORMAL SALINE 1,000ML 1,000 ML IV ONE (17:15)
[2020-05-23] MEDS ORDERED: MECLIZINE 12.5 MG TABLET. PO ONE (17:15)
[2020-05-23] MEDS ORDERED: MECL-75 PO (17:43)
[2020-05-23 19:00] VITALS: BP 184/82
[2020-05-23] MEDS ORDERED: VITA1TAB19 PO (19:46)
[2020-05-23] MEDS ORDERED: MULT-658 PO (19:46)
[2020-05-23] MEDS ORDERED: EZET10TA20 PO (19:46)
[2020-05-23] MEDS ORDERED: APIX5TAB3 PO (19:46)
[2020-05-23] MEDS ORDERED: SOTA160T PO (19:46)
[2020-05-23] MEDS ORDERED: MELA10TA PO (19:46)
[2020-05-23] MEDS ORDERED: GABA100C81 PO (19:46)
[2020-05-23] MEDS ORDERED: ACET500T68 PO (19:46)
[2020-05-23] MEDS ORDERED: PANT40TA6 PO (19:46)
[2020-05-23] MEDS ORDERED: CHOL20009 PO (19:46)
[2020-05-23 20:21] LABS: MAGNESIUM 2.2 mg/dL (1.8-2.4)
[2020-05-23] MEDS ORDERED: MECLIZINE 12.5 MG TABLET. PO PRN (20:45)
[2020-05-23] MEDS: ZOLPIDEM 5 MG TABLET. PO PRN (20:54)
[2020-05-23] MEDS: PANTOPRAZOLE 40 MG TABLET. PO SCH (20:55)
[2020-05-23] MEDS: GABAPENTIN 300 MG CAPSULE. PO SCH (20:55)
[2020-05-23] MEDS: ATORVASTATIN CALCIUM 20 MG TABLET PO SCH (20:55)
[2020-05-23] MEDS: SOTALOL 80 MG TABLET. PO SCH (20:55)
[2020-05-23] MEDS: APIXABAN 5 MG TABLET. PO SCH (20:55)
[2020-05-23] MEDS: ACETAMINOPHEN 500 MG TABLET PO PRN (20:56)
[2020-05-23] MEDS ORDERED: cloNIDine TTS-1 1 PATCH PATCH TD SCH (21:00)
[2020-05-23 21:51] LABS: BACTERIA,URINE FEW /HPF (0-FEW); BILIRUBIN,URINE NEG (NEG); CLARITY,URINE HAZY; COLOR,URINE YELLOW; GLUCOSE,URINE NEG (NEG); NITRITE,URINE NEG (NEG); RBC,URINE RARE /HPF (0-2); SQUAMOUS EPITHELIAL CELL,UR MANY /LPF
[2020-05-23 22:53] VITALS: BP 104/44
[2020-05-24] VITALS (9 sets, daily range): BP systolic 101–148; BP diastolic 53–65
[2020-05-24] MEDS ORDERED: FLU VACC QS 2020-21(6MOS+)/PF 0.5 ML SYRINGE. VAX IM ONE (09:00)
[2020-05-24] MEDS: EZETIMIBE 10 MG TABLET PO SCH (09:54)
[2020-05-24] MEDS: VITAMIN B COMPLEX CAPSULE. PO SCH (09:54)
[2020-05-24] MEDS: APIXABAN 5 MG TABLET. PO SCH ×2 (09:54→20:01)
[2020-05-24] MEDS: PANTOPRAZOLE 40 MG TABLET. PO SCH ×2 (09:54→20:00)
[2020-05-24] MEDS: FOLIC ACID 1 MG TABLET PO SCH (09:54)
[2020-05-24] MEDS: GABAPENTIN 300 MG CAPSULE. PO SCH ×3 (09:55→20:00)
[2020-05-24] MEDS: SOTALOL 80 MG TABLET. PO SCH ×2 (09:55→20:00)
[2020-05-24] MEDS: MULTIVITAMIN with MINERAL TABLET. PO SCH (09:56)
[2020-05-24] MEDS: CHOLECALCIFEROL (VITAMIN D3) 1,000 UNIT TABLET PO SCH (09:56)
[2020-05-24 10:32] LABS: BASO % 1 % (0-3); EOS # 0.3 x10^3/uL (0.0-0.7); EOS % 9 % (0-3); HEMATOCRIT 22.6 % (36.0-47.0); LYMPH # 1.2 x10^3/uL (1.0-4.8); LYMPH % 43 % (24-48); MEAN CORPUSCULAR HEMOGLOBIN 28 pg (25-35); MEAN CORPUSCULAR HGB CONC 30 g/dL (31-37); MEAN CORPUSCULAR VOLUME 94 fL (79-100); MONO % 0 % (0-9); NEUT # 1.4 x10^3uL (1.8-7.7); NEUT % 47 % (31-73); PLATELET COUNT 175 x10^3/uL (140-400); RED BLOOD COUNT 2.41 x10^6/uL (3.50-5.40); RED CELL DISTRIBUTION WIDTH 18.9 % (11.5-14.5); WHITE BLOOD COUNT 2.9 x10^3/uL (4.0-11.0)
[2020-05-24 10:44] LABS: HEMOGLOBIN 6.7 g/dL (12.0-15.5)
[2020-05-24] MEDS: SUCRALFATE 1 GM/10 ML ORAL.SUSP. PO SCH ×2 (18:36→20:00)
[2020-05-24] MEDS: ACETAMINOPHEN 500 MG TABLET PO PRN (20:00)
[2020-05-24] MEDS: ATORVASTATIN CALCIUM 20 MG TABLET PO SCH (20:00)
[2020-05-24] MEDS: ZOLPIDEM 5 MG TABLET. PO PRN (20:01)
--- NOTE | 2020-05-24 23:44 | HP ---
ADMIT DATE: 05/23/2020 HISTORY OF PRESENT ILLNESS: A 80-year-old female who came in through the Emergency Room with severe vertiginous feelings. The patient was unable to walk. She was so dizzy. She states that going downstairs is impossible and had to have EMS take her to the Emergency Room. Denies chest pain, shortness of breath. Denies any headaches, trauma and the patient has a long medical history and has been hospitalized for coronary events. Her CT scan in the Emergency Room was negative, but she was more anemic than she usually is and apparently has been worked up extensively at [facility] for her bleed, and has not been able to find an obvious source of that, but in any case, she was admitted because of generalized weakness and she chronically run hemoglobin in the 8, it is noted her anemia is well evaluated as indicated. PAST MEDICAL HISTORY: Includes tonsillectomy, dizziness. She has had a heart attack in 2018. Congestive heart failure, coronary artery disease, coronary stent in 2018. Watchman pacemaker, Eliquis anticoagulant for paroxysmal atrial fibrillation, hypercholesterolemia, hypertension, bronchitis, Hennessy's esophagus, gallstones, appendectomy, history of obesity, GERD, , kidney stones, urinary tract infection, lithotripsy, rheumatoid arthritis, sees a chip person for that. 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 She has a right knee arthroscope, parathyroid disease, history of smoking, but quit in September 2017, has problem with insomnia. Tetanus, influenza vaccinations are up-to-date. The patient's, apparently mother had a history of benign parathyroid hormone, heart attacks in sisters and brother, myocardial infarction in the mother. ALLERGIES: THE PATIENT HAS AN ADVERSE REACTION TO VANCOMYCIN. The patient had an angioplasty and stenting of the circumflex artery in 2018 for ACS, paroxysmal atrial fibrillation, essential hypertension, dyslipidemia, has a history of severe anemia as indicated. The patient is a DNR. MEDICATIONS: The patient's medications, methotrexate 5 mg weekly, Eliquis 5 mg b.i.d., Zetia 10 mg, atorvastatin 80, sotalol 160 mg b.i.d., Tylenol, gabapentin 300 t.i.d., meclizine, Protonix 40 b.i.d., folic acid, vitamin B complex, melatonin and multivitamin. SOCIAL HISTORY: As noted above. REVIEW OF SYSTEMS: The patient outside of her dizziness, she also describes possibly as lightheadedness where she feels like she is falling and unable to walk and keep control of her feet. The patient denies any chest pain; however or shortness of breath. Denies abdominal pain. Denies any melena, hematochezia, hematemesis. Neurologically, she is intact. PHYSICAL EXAMINATION: GENERAL: This is a very pleasant white female, in no apparent distress at the present time. VITAL SIGNS: The patient did have a drop in her blood pressure from 124/54 down to 102/53, respiratory rate 20, pulse in the 60s, she is afebrile, room air 96%. HEENT: The patient's head was atraumatic, normocephalic. Eyes: PERRLA without jaundice. The mouth and throat were normal. NECK: Supple, without JVD, carotids or thyromegaly. LUNGS: Diminished, but basically clear, diminished. CARDIOVASCULAR: Regular sinus rhythm, occasional dropped beat. ABDOMEN: Soft, nontender, no rebound or guarding. Positive bowel sounds, no hepatosplenomegaly. EXTREMITIES: No clubbing, cyanosis, nor edema. NEUROLOGIC: The patient was alert and oriented x 3. Speech was spontaneous. LABORATORY DATA: White count 4, dropped down to 2.9. Hemoglobin went from 7.8, down to 6.7, 1 unit up to approximately 8, ____. The patient's iron level is stable at 61. Cardiac enzymes negative. B12 elevated over 1000. TSH stable at 3. He did have a slightly elevated BUN and creatinine 22 and 1.1. IMPRESSION: Anemia of unknown etiology, lightheadedness, orthostatic hypotension, paroxysmal atrial fibrillation, vestibulitis, chronic kidney disease stage 3A, coronary artery disease, on chronic anticoagulation. CT of the head was negative. Chest x-ray, large hiatal hernia, otherwise unremarkable there. PLAN: The patient continued to be monitored, recheck her labs and electrolytes in the morning. We will try her on some Carafate and make further evaluation on her as indicated per those results. HERBERT ZUNIGA MD DR: BERTA/eugene JOB#: [id number] / [id number]
[2020-05-25 05:54] VITALS: BP 132/54
[2020-05-25 06:31] LABS: BASO % 1 % (0-3); EOS # 0.3 x10^3/uL (0.0-0.7); EOS % 9 % (0-3); HEMATOCRIT 25.4 % (36.0-47.0); HEMOGLOBIN 7.8 g/dL (12.0-15.5); LYMPH # 1.3 x10^3/uL (1.0-4.8); LYMPH % 41 % (24-48); MEAN CORPUSCULAR HEMOGLOBIN 28 pg (25-35); MEAN CORPUSCULAR HGB CONC 31 g/dL (31-37); MEAN CORPUSCULAR VOLUME 92 fL (79-100); MONO # 0.3 x10^3/uL (0.0-1.1); MONO % 10 % (0-9); NEUT # 1.3 x10^3uL (1.8-7.7); NEUT % 39 % (31-73); PLATELET COUNT 175 x10^3/uL (140-400); RED BLOOD COUNT 2.77 x10^6/uL (3.50-5.40); RED CELL DISTRIBUTION WIDTH 18.3 % (11.5-14.5); WHITE BLOOD COUNT 3.3 x10^3/uL (4.0-11.0)
[2020-05-25 07:21] LABS: CALCIUM 8.9 mg/dL (8.5-10.1); CREATININE 1.1 mg/dL (0.6-1.0); GFR 47.9; POTASSIUM 4.2 mmol/L (3.5-5.1)
[2020-05-25] MEDS: SUCRALFATE 1 GM/10 ML ORAL.SUSP. PO SCH ×4 (07:38→20:13)
[2020-05-25 08:00] VITALS: BP 146/75
[2020-05-25] MEDS ORDERED: FLU VACC QS 2020-21(6MOS+)/PF 0.5 ML SYRINGE. VAX IM ONE (09:00)
[2020-05-25] MEDS: SOTALOL 80 MG TABLET. PO SCH ×2 (09:03→20:14)
[2020-05-25] MEDS: EZETIMIBE 10 MG TABLET PO SCH (09:03)
[2020-05-25] MEDS: PANTOPRAZOLE 40 MG TABLET. PO SCH ×2 (09:03→20:14)
[2020-05-25] MEDS: MULTIVITAMIN with MINERAL TABLET. PO SCH (09:04)
[2020-05-25] MEDS: VITAMIN B COMPLEX CAPSULE. PO SCH (09:04)
[2020-05-25] MEDS: APIXABAN 5 MG TABLET. PO SCH (09:04)
[2020-05-25] MEDS: GABAPENTIN 300 MG CAPSULE. PO SCH ×3 (09:04→20:13)
[2020-05-25] MEDS: CHOLECALCIFEROL (VITAMIN D3) 1,000 UNIT TABLET PO SCH (09:04)
[2020-05-25] MEDS: FOLIC ACID 1 MG TABLET PO SCH (09:04)
[2020-05-25 11:00] VITALS: BP 130/47
[2020-05-25 16:15] VITALS: BP 136/55
[2020-05-25 19:10] VITALS: BP 110/57
[2020-05-25] MEDS: APIXABAN 2.5 MG TABLET PO SCH (20:13)
[2020-05-25] MEDS: ATORVASTATIN CALCIUM 20 MG TABLET PO SCH (20:14)
--- NOTE | 2020-05-25 22:34 | PN ---
DATE: SUBJECTIVE: A 80-year-old female located in the ICU bed #6. The patient came in with severe vestibulitis, marked orthostasis and anemia secondary to possible GI bleed. The patient otherwise says she is feeling a little better, but still very wobbly. She is receiving PT, OT and making some progress, although she did have a significant drop in her blood pressure approximately 125/50 down to roughly 102/50. The patient is orthostatic and runs a low-grade temperature of 99.1. The patient's imaging in chest x-ray head and so forth outside of a large hiatal hernia, no signs of infection there. The rest of her labs looked reasonable. Her urine was unremarkable as well. Sodium and potassium 142 and 4.2. BUN and creatinine of 19 and 1.1. OBJECTIVE: GENERAL: The patient is otherwise alert and oriented. LUNGS: Diminished, but basically clear. CARDIOVASCULAR: Regular sinus rhythm with paroxysmal atrial fibrillation. ABDOMEN: The patient's abdomen is soft, nontender. EXTREMITIES: No clubbing, cyanosis or edema. IMPRESSION: Orthostasis, near syncope, paroxysmal atrial fibrillation, possible gastrointestinal bleed, chronic kidney disease stage 3A. The patient apparently has been advised by her office helper, Dr. Guaman, to come off the Eliquis and go on Plavix and aspirin. She says she has had bad experiences and does not want to do that, so we will cut her Eliquis down to 2.5 mg daily. She had received 1 unit of packed RBCs. It has come up and stayed up around 7.8. We will recheck that in the morning. Continue with PT, OT and make further evaluation on her as indicated. Anemia of unknown etiology, possible gastrointestinal bleed, lightheadedness, orthostatic hypotension, near syncope, paroxysmal atrial fibrillation, vestibulitis, chronic kidney disease 3A, coronary artery disease, chronic anticoagulation, large hiatal hernia. PLAN: Continue on present drug regimen, cut down on the Eliquis to 2.5 mg b.i.d. and make further evaluation on that report. HERBERT ZUNIGA MD DR: BERTA/eugene JOB#: [id number] / [id number]
[2020-05-25] MEDS: ZOLPIDEM 5 MG TABLET. PO PRN (23:26)
[2020-05-25 23:33] VITALS: BP 106/48
[2020-05-26 05:34] VITALS: BP 132/52
[2020-05-26] MEDS: SUCRALFATE 1 GM/10 ML ORAL.SUSP. PO SCH ×2 (08:12→11:53)
[2020-05-26] MEDS ORDERED: METHOTREXATE SODIUM 2.5 MG TABLET PO SCH (09:00)
[2020-05-26] MEDS: EZETIMIBE 10 MG TABLET PO SCH (09:20)
[2020-05-26] MEDS: VITAMIN B COMPLEX CAPSULE. PO SCH (09:20)
[2020-05-26] MEDS: CHOLECALCIFEROL (VITAMIN D3) 1,000 UNIT TABLET PO SCH (09:20)
[2020-05-26] MEDS: SOTALOL 80 MG TABLET. PO SCH (09:20)
[2020-05-26] MEDS: MULTIVITAMIN with MINERAL TABLET. PO SCH (09:20)
[2020-05-26] MEDS: PANTOPRAZOLE 40 MG TABLET. PO SCH (09:21)
[2020-05-26] MEDS: GABAPENTIN 300 MG CAPSULE. PO SCH (09:21)
[2020-05-26] MEDS: APIXABAN 2.5 MG TABLET PO SCH (09:21)
[2020-05-26] MEDS: FOLIC ACID 1 MG TABLET PO SCH (09:21)
[2020-05-26 09:28] LABS: BASO % 1 % (0-3); EOS # 0.3 x10^3/uL (0.0-0.7); EOS % 10 % (0-3); HEMATOCRIT 26.8 % (36.0-47.0); HEMOGLOBIN 8.1 g/dL (12.0-15.5); LYMPH # 0.9 x10^3/uL (1.0-4.8); LYMPH % 30 % (24-48); MEAN CORPUSCULAR HEMOGLOBIN 28 pg (25-35); MEAN CORPUSCULAR HGB CONC 30 g/dL (31-37); MEAN CORPUSCULAR VOLUME 91 fL (79-100); MONO # 0.3 x10^3/uL (0.0-1.1); MONO % 10 % (0-9); NEUT # 1.5 x10^3uL (1.8-7.7); NEUT % 49 % (31-73); PLATELET COUNT 177 x10^3/uL (140-400); RED BLOOD COUNT 2.95 x10^6/uL (3.50-5.40); RED CELL DISTRIBUTION WIDTH 18.3 % (11.5-14.5); WHITE BLOOD COUNT 3.1 x10^3/uL (4.0-11.0)
[2020-05-26] MEDS ORDERED: SUCR1ORA5 PO (11:24)
[2020-05-26] MEDS ORDERED: APIX2.5T PO (11:24)
[2020-05-26 11:30] VITALS: BP 124/56
[2020-05-26] MEDS ORDERED: MECLIZINE 12.5 MG TABLET. PO ONE (13:00)
== END 2020-05-26 13:31 | disposition home or self-care (01) | DRG 378 ==
LOC: ER 14:07 → ICU 18:00
PROVIDERS: ADMIT Family Medicine; ATTEND Family Medicine
PROC: 30233N1 Transfusion of Nonautologous Red Blood Cells into Peripheral Vein, Percutaneous Approach (ICD-10-PCS; principal; 2020-05-24)
DX: K92.2 Gastrointestinal hemorrhage, unspecified (principal); I13.0 Hypertensive heart and chronic kidney disease with heart failure and stage 1 through stage 4 chronic kidney disease, or unspecified chronic kidney disease; G90.8 Other disorders of autonomic nervous system; I95.1 Orthostatic hypotension; N18.31 Chronic kidney disease, stage 3a; D64.9 Anemia, unspecified; E78.00 Pure hypercholesterolemia, unspecified; H83.09 Labyrinthitis, unspecified ear; I25.10 Atherosclerotic heart disease of native coronary artery without angina pectoris; I48.0 Paroxysmal atrial fibrillation; I25.2 Old myocardial infarction; I50.9 Heart failure, unspecified; J44.9 Chronic obstructive pulmonary disease, unspecified; K22.70 Barrett's esophagus without dysplasia; K44.9 Diaphragmatic hernia without obstruction or gangrene; M06.9 Rheumatoid arthritis, unspecified; Z79.01 Long term (current) use of anticoagulants; Z82.49 Family history of ischemic heart disease and other diseases of the circulatory system; Z87.442 Personal history of urinary calculi; Z87.891 Personal history of nicotine dependence; Z95.5 Presence of coronary angioplasty implant and graft; K21.9 Gastro-esophageal reflux disease without esophagitis; M19.90 Unspecified osteoarthritis, unspecified site
CPT/HCPCS: 36415; 70450; 70496; 70498; 71045; 80048; 80053; 81001; 82550; 82607; 83540; 83550; 83735; 84443; 84484; 85018; 85025; 85045; 85610; 86850; 86900; 86901; 86920; 90471; 90686; 93005; 96360; J8610; P9016; Q9967; 99285-25; J7030

== ENCOUNTER 2020-06-20 17:19 | Inpatient (IN) | payer MEDICARE, OTHER ==
[~2020-06-20] VITALS: Ht 162.6 cm; Wt 91.2 kg
[~2020-06-20 17:19] MED LIST changes: -CLOP75TA PO; -GABA-586 PO
--- NOTE | 2020-06-20 17:54 | PHYS DOC ---
Past History Past Medical History: A-Fib, Arthritis, CHF, COPD, Kidney Stones, [place], UTI Past Surgical History: , Pacemaker, Other Additional Past Surgical Histo: ureter stent Smoking: Cigarettes Alcohol Use: None Drug Use: None General Adult EDM: Chief Complaint: SHORTNESS OF BREATH HPI: HPI: Patient is a 80-year-old female who presents with shortness of breath. Patient states that she was here a month ago with the exact same symptoms and was told that her hemoglobin was low. Patient's reports that shortness of breath is worse with exertion and that she has had the symptoms for 1 year. Patient states "I never figured out the cause for the bleeding". Patient does report middle, back pain which is chronic. Patient has been using a lidocaine patch and Tylenol for pain with little relief. Patient denies using oxygen at home. Patient has a history of RA, hypertension, Hennessy's esophagus, and pacemaker th at was placed in February. Patient states that she is on Plavix and aspirin daily. Review of Systems: Review of Systems: Constitutional: Denies fever or chills Eyes: Denies change in visual acuity HENT: Denies nasal congestion or sore throat Respiratory: Denies cough, reports shortness of breath Cardiovascular: Denies chest pain or edema GI: Denies abdominal pain, nausea, vomiting, bloody stools or diarrhea : Denies dysuria Musculoskeletal: Denies back pain or joint pain Integument: Denies rash Neurologic: Denies headache, focal weakness or sensory changes Endocrine: Denies polyuria or polydipsia Lymphatic: Denies swollen glands Psychiatric: Denies depression or anxiety Allergies: Allergies: Allergies Coded Allergies Type Severity Reaction Last Updated Verified vancomycin Allergy Mild 11/20/18 Yes Physical Exam: PE: Constitutional: Well developed, well nourished, no acute distress, non-toxic appearance. [] HENT: Normocephalic, atraumatic, bilateral external ears normal, oropharynx moist, no oral exudates, nose normal. [] Eyes: PERRLA, EOMI, conjunctiva normal, no discharge. [] Neck: Normal range of motion, no tenderness, supple, no stridor. [] Cardiovascular:Heart rate regular rhythm, no murmur [] Lungs & Thorax: Bilateral breath sounds clear to auscultation [] Abdomen: Bowel sounds normal, soft, no tenderness, no masses, no pulsatile masses. [] Skin: Warm, dry, no erythema, no rash. [] Back: Mid back tenderness, no CVA tenderness Extremities: No tenderness, no cyanosis, no clubbing, ROM intact, no edema. [] Neurologic: Alert and oriented X 3, normal motor function, normal sensory function, no focal deficits noted. [] Psychologic: Affect normal, judgement normal, mood normal. [] EKG: EKG: Sinus Rhythm, HR 61 BPM[] Radiology/Procedures: Radiology/Procedures: []XR CHEST 1V History: Reason: sob / Spl. Instructions: / History: Comparison: May 23, 2020 Findings: No consolidation or pleural effusion. Normal heart size. No pneumothorax. Moderate hiatal hernia, unchanged. Left-sided pacemaker, unchanged. Impression: 1. No acute cardiopulmonary process. 2. Unchanged hiatal hernia. Electronically signed by: Mack Otero DO (06/20/2020 6:56 PM) [facility] Heart Score: HEART Score for Chest Pain: HEART Score for Chest Pain Response (Comments) Value History Moderately Suspicious 1 Age > 65 2 Risk Factors >3 Risk Factors or Hx CAD 2 Troponin < Normal Limit 0 Total 5 Risk Factors: Risk Factors: DM, Current or recent (<one month) smoker, HTN, HLP, family history of CAD, obesity. Risk Scores: Score 0 - 3: 2.5% MACE over next 6 weeks - Discharge Home Score 4 - 6: 20.3% MACE over next 6 weeks - Admit for Clinical Observation Score 7 - 10: 72.7% MACE over next 6 weeks - Early Invasive Strategies Course & Med Decision Making: Course & Med Decision Making Pertinent Labs and Imaging studies reviewed. (See chart for details) [] Patient is 80-year-old female presents with shortness of breath. Patient states that she was here a month ago with the same symptoms and was told her hemoglobin was low. Patient symptoms are worse with exertion. Patient does report mid back pain that is worse at night and chronic. Patient's PCP is Dr. Myles. Patient reports having history of RA, hypertension, Hennessy's esophagus, pacemaker placed in February. Patient has been using a lidocaine pa tch and also Tylenol for pain relief. Patient is on Plavix and aspirin daily. Patient denies a cough, fever, recent illness or edema. Labs, EKG, chest x-ray UA, D-dimer ordered. CT abdomen ordered to rule out BISI, PE. Hgb 6.9. Tranfuse order placed. Hemoccult ordered. Dr. Zuniga contacted for admit of patient. Jose Ramon Disclaimer: Jose Ramon Disclaimer: This electronic medical record was generated, in whole or in part, using a voice recognition dictation system. Departure Departure: Impression: Primary Impression: Low hemoglobin Disposition: ADMITTED INPT THIS HOSP Admitting Physician: Herbert Zuniga Condition: STABLE Referrals: HERBERT ZUNIGA MD (PCP) Additional Instructions: SARINA SARKAR APRN Jun 20, 2020 17:54
[2020-06-20 18:13] LABS: BASO % 1 % (0-3); EOS # 0.2 x10^3/uL (0.0-0.7); EOS % 7 % (0-3); HEMATOCRIT 22.5 % (36.0-47.0); LYMPH # 1.3 x10^3/uL (1.0-4.8); LYMPH % 36 % (24-48); MEAN CORPUSCULAR HEMOGLOBIN 27 pg (25-35); MEAN CORPUSCULAR HGB CONC 31 g/dL (31-37); MEAN CORPUSCULAR VOLUME 88 fL (79-100); MONO # 0.3 x10^3/uL (0.0-1.1); MONO % 8 % (0-9); NEUT # 1.7 x10^3uL (1.8-7.7); NEUT % 48 % (31-73); PLATELET COUNT 218 x10^3/uL (140-400); RED BLOOD COUNT 2.57 x10^6/uL (3.50-5.40); RED CELL DISTRIBUTION WIDTH 18.5 % (11.5-14.5); WHITE BLOOD COUNT 3.5 x10^3/uL (4.0-11.0)
--- NOTE | 2020-06-20 18:14 | EKG ---
[address] [address] Test Date: 2020-06-20 Test Time: 18:05:56 Pat Name: JACY COLON Department: Room: Gender: F Manager [place]: [place] : 1940 Requested By: SARINA SARKAR Order Number: [id number] Reading MD: Yves Isaac MD Measurements Intervals [place] Rate: 61 P: 38 IA: 210 QRS: -12 QRSD: 88 T: 4 QT: 458 QTc: 467 Interpretive Statements SINUS RHYTHM LEFTWARD AXIS QRS(T) CONTOUR ABNORMALITY CONSIDER INFERIOR INFARCT POSSIBLY ABNORMAL ECG Electronically Signed On 06-21-2020 7:24:51 SOUND PRINTER by Yves Isaac MD
[2020-06-20 18:24] LABS: CALCIUM 9.3 mg/dL (8.5-10.1); CREATININE 1.3 mg/dL (0.6-1.0); GFR 39.5; POTASSIUM 4.1 mmol/L (3.5-5.1)
[2020-06-20 18:29] LABS: HEMOGLOBIN 6.9 g/dL (12.0-15.5)
[2020-06-20 18:37] LABS: ALBUMIN 3.5 g/dL (3.4-5.0); ALBUMIN/GLOBULIN RATIO 1.3 (1.0-1.7); TOTAL BILIRUBIN 0.3 mg/dL (0.2-1.0); TOTAL PROTEIN 6.1 g/dL (6.4-8.2)
[2020-06-20] MEDS ORDERED: PANTOPRAZOLE IV 40 MG VIAL. IVP ONE (18:45)
--- NOTE | 2020-06-20 18:58 | RAD ---
XR CHEST 1V History: Reason: sob / Spl. Instructions: / History: Comparison: May 23, 2020 Findings: No consolidation or pleural effusion. Normal heart size. No pneumothorax. Moderate hiatal hernia, unc hanged. Left-sided pacemaker, unchanged. Impression: 1. No acute cardiopulmonary process. 2. Unchanged hiatal hernia. Electronically signed by: Mack Otero DO (06/20/2020 6:56 PM) [facility]
[2020-06-20] MEDS ORDERED: ACETAMINOPHEN 500 MG TABLET PO ONE ×4 (19:15→19:30)
[2020-06-20] MEDS ORDERED: LIDOCAINE (700MG/PATCH) PATCH. ONE (19:21)
[2020-06-20 19:22] LABS: BILIRUBIN,URINE NEG (NEG); CLARITY,URINE CLEAR; COLOR,URINE YELLOW; GLUCOSE,URINE NEG (NEG); NITRITE,URINE NEG (NEG)
[2020-06-20 19:23] LABS: BACTERIA,URINE MOD /HPF (0-FEW); RBC,URINE OCC /HPF (0-2); SQUAMOUS EPITHELIAL CELL,UR MANY /LPF
[2020-06-20] MEDS ORDERED: LIDOCAINE (700MG/PATCH) PATCH. TD SCH (19:30)
[2020-06-20 19:38] LABS: FECAL OB PT NEGATIVE (NEG)
--- NOTE | 2020-06-20 19:47 | RAD ---
Examination: CT of the abdomen pelvis without contrast HISTORY: History of small bowel obstruction COMPARISON: 05/21/2020 Technique: Axial CT images of the abdomen pelvis were performed without contrast. Coronal and sagitta l reformats are performed Exposure: One or more of the following individualized dose reduction techniques were utilized for thi s examination: 1. Automated exposure control 2. Adjustment of the mA and/or kV according to patient size 3. Use of iterative reconstruction technique FINDINGS: Mild bibasilar lung atelectasis. Moderate hiatal hernia. No evidence of free air identified in the abdomen. The evaluation of the solid organs is limited due to lack of IV contrast. The evaluation of bowel is limited due to lack of oral contrast. The visualiz ed noncontrasted liver, spleen, adrenals grossly appears unremarkable. The gallbladder is mildly dist ended. The visualized pancreas grossly appears unremarkable. The small bowel is nondilated. Moderate amount of feces and gas identified in the colon. The appendix is normal. There is moderate thickened appearance of the wall of the urinary bladder anteriorly and laterally. Bilateral collecting system calculi identified with the largest measuring 7 mm in the right kidney an d 3 mm calculus left kidney. Moderate aortic atherosclerosis Severe degenerative changes lumbar spine. Mild lumbar levoscoliosis. IMPRESSION: 1. Moderate thickened appearance of the wall of the urinary bladder anteriorly and laterally could b e due to nondistention or cystitis or mucosal pathology such as neoplasm. Cystoscopic evaluation can be considered.. 2. Bilateral nephrolithiasis. 3. Moderate hiatal hernia. Electronically signed by: Amandeep Keyes MD (06/20/2020 7:45 PM) [id number]
[2020-06-20] MEDS ORDERED: IV NORMAL SALINE 1,000ML 1,000 ML IV SCH (20:45)
[2020-06-20] MEDS ORDERED: PATCH REMOVAL. MC SCH (21:00)
--- NOTE | 2020-06-20 21:30 | NUR ---
ADMISSION: The patient, JACY COLON, 80 y/o, F admitted by HERBERT ZUNIGA MD, was given written information regarding hospital policies, unit procedures and contact persons. Pt arrived to room 105 via rney, accompanied by [facility] and ED staff. Pt amb independently from gurney to bed, steady gait noted. A/Ox4. Pt here for c/o SOA and weakness x1 week. Pt with known hx of anemia, was here recently with similar symptoms and received blood transfusion at that time. Pt normally follows with a principal java developer at [facility], but has not been seen recently. Notified Dr. Zuniga of pt status, orders received to transfuse 1 unit PRBC's now. Discussed POC with pt, V/U. Consent to blood transfusion signed by pt and witnessed by this RN. Pt currently sitting up in bed, eating box lunch. Call light in reach. Valuables were checked and logged. Left in room with pt.
[2020-06-20 21:49] VITALS: BP 169/78
[2020-06-20] MEDS ORDERED: GABA-586 PO (22:42)
[2020-06-20] MEDS ORDERED: ASPI-630 PO (22:42)
[2020-06-20] MEDS ORDERED: CLOP75TA PO (22:42)
[2020-06-20] MEDS ORDERED: MORPHINE SULFATE 2 MG/ML DISP.SYRIN. IV PRN (23:00)
[2020-06-20] MEDS ORDERED: ACETAMINOPHEN 500 MG TABLET PO PRN (23:00)
[2020-06-20] MEDS: PANTOPRAZOLE 40 MG TABLET. PO SCH (23:07)
[2020-06-20] MEDS ORDERED: MELATONIN 3 MG TABLET PO SCH (23:15)
[2020-06-20] MEDS ORDERED: ATORVASTATIN CALCIUM 20 MG TABLET PO SCH (23:15)
[2020-06-20] MEDS: SUCRALFATE 1 GM/10 ML ORAL.SUSP. PO SCH (23:24)
[2020-06-20] MEDS: GABAPENTIN 300 MG CAPSULE. PO SCH (23:25)
[2020-06-20] MEDS: SOTALOL 80 MG TABLET. PO SCH (23:25)
[2020-06-20 23:55] VITALS: BP 137/75
[2020-06-21 00:25] VITALS: BP 121/70
--- NOTE | 2020-06-21 00:30 | NUR ---
BLOOD TRANSFUSION 1 UNIT PRBC'S BLOOD TRANSFUSION STARTED AT 0010. TUBING PRIMED WITH NS AND THEN PRIMED WITH BLOOD. TRANSFUSION STARTED AT 100ML/HR, PT MONITORED CLOSELY X15MIN. NO REACTION NOTED. TRANSFUSION INCREASED TO 150ML/HR. PT TOLERATING WELL. VSS. CALL LIGHT IN REACH.
[2020-06-21 01:25] VITALS: BP 124/67
[2020-06-21 02:25] VITALS: BP 123/70
[2020-06-21 03:30] VITALS: BP 127/54
--- NOTE | 2020-06-21 03:30 | NUR ---
1HR POST TRANSFUSION PT TOLERATED BLOOD TRANSFUSION WELL. DENIES ANY C/O. VSS. PT UP TO BATHROOM WITH SBA. PT STILL FEELING MILDLY WEAK, WALKER PROVIDED TO AID AMBULATION. PT NOW RESTING COMFORTABLY IN BED WITH CALL LIGHT IN REACH.
[2020-06-21 07:14] LABS: BASO % 1 % (0-3); EOS # 0.3 x10^3/uL (0.0-0.7); EOS % 7 % (0-3); HEMATOCRIT 23.9 % (36.0-47.0); HEMOGLOBIN 7.5 g/dL (12.0-15.5); LYMPH # 1.3 x10^3/uL (1.0-4.8); LYMPH % 36 % (24-48); MEAN CORPUSCULAR HEMOGLOBIN 27 pg (25-35); MEAN CORPUSCULAR HGB CONC 31 g/dL (31-37); MEAN CORPUSCULAR VOLUME 87 fL (79-100); MONO # 0.4 x10^3/uL (0.0-1.1); MONO % 11 % (0-9); NEUT # 1.7 x10^3uL (1.8-7.7); NEUT % 46 % (31-73); PLATELET COUNT 199 x10^3/uL (140-400); RED BLOOD COUNT 2.75 x10^6/uL (3.50-5.40); RED CELL DISTRIBUTION WIDTH 17.9 % (11.5-14.5); WHITE BLOOD COUNT 3.8 x10^3/uL (4.0-11.0)
[2020-06-21 07:20] LABS: ALBUMIN 3.1 g/dL (3.4-5.0); ALBUMIN/GLOBULIN RATIO 1.2 (1.0-1.7); CALCIUM 8.8 mg/dL (8.5-10.1); CREATININE 1.1 mg/dL (0.6-1.0); GFR 47.9; TOTAL BILIRUBIN 0.7 mg/dL (0.2-1.0); TOTAL PROTEIN 5.6 g/dL (6.4-8.2)
[2020-06-21] MEDS: SUCRALFATE 1 GM/10 ML ORAL.SUSP. PO SCH (07:22)
[2020-06-21] MEDS: GABAPENTIN 300 MG CAPSULE. PO SCH (08:15)
[2020-06-21] MEDS: PANTOPRAZOLE 40 MG TABLET. PO SCH (08:16)
[2020-06-21] MEDS ORDERED: CHOLECALCIFEROL (VITAMIN D3) 1,000 UNIT TABLET PO SCH (09:00)
[2020-06-21] MEDS ORDERED: FOLIC ACID 1 MG TABLET PO SCH (09:00)
[2020-06-21] MEDS ORDERED: CLOPIDOGREL BISULFATE 75 MG TABLET PO SCH (09:00)
[2020-06-21] MEDS ORDERED: LIDOCAINE (700MG/PATCH) PATCH. TD SCH (09:00)
[2020-06-21] MEDS ORDERED: MULTIVITAMIN with MINERAL TABLET. PO SCH (09:00)
[2020-06-21] MEDS ORDERED: EZETIMIBE 10 MG TABLET PO SCH (09:00)
[2020-06-21] MEDS: SOTALOL 80 MG TABLET. PO SCH (09:00)
[2020-06-21] MEDS ORDERED: ASPIRIN CHEWABLE 81 MG TABLET. PO SCH (09:00)
[2020-06-21] MEDS ORDERED: oxyCODONE/APAP 5/325 1 TAB TABLET PO ONE (09:30)
[2020-06-21] MEDS ORDERED: oxyCODONE/APAP 5/325 1 TAB TABLET PO PRN (09:30)
[2020-06-21 10:22] VITALS: BP 118/58
--- NOTE | 2020-06-21 11:10 | NUR ---
PATIENT WAS C/O BACK PAIN. PERCOCET GIVEN ORDERED. PAIN WAS REASSESSED, PATIENT STATED SHE DOES NOT HAVE ANY PAIN AT THIS MOMENT.
--- NOTE | 2020-06-21 12:56 | NUR ---
PATIENT IS DISCHARGED HOME , DISCHARGE INSTRUCTIONS AND MEDS REVIEWED, PATIENT VERBALIZED UNDERSTANDING. PATIENT LEFT ROOM 105 VIA W/C ACCOMPANIED BY STAFF MEMBER. PATIENT IS TAKEN HOME BY FAMILY MEMBER VIA PERSONAL VEHICLE.
--- NOTE | 2020-06-21 13:19 | HP ---
ADMIT DATE: 06/20/2020 HISTORY OF PRESENT ILLNESS: A 80-year-old female who came in through the Emergency Room. The patient was feeling increased weakness and shortness of breath for the last month or so. The patient was worse with exertion. The patient notes she has been having some problems with bleeding. They do not know where she becomes anemic. Her hemoglobin dropped down into the 6 range. The patient has a past medical history of rheumatoid arthritis and Hennessy's esophagus. The patient was admitted because of her generalized weakness with a hemoglobin dropped down to 6.9 and 22. PAST MEDICAL HISTORY: Includes that of tonsillectomy, peripheral neuropathy, heart attack in December 2017, CHF, coronary artery disease, stent placement in 2018, pacemaker. Watchman, anticoagulants with Plavix, hypercholesterolemia, bronchitis, Hennessy's esophagus, gallstones, appendectomy, obesity, gastroesophageal reflux, , kidney stones, urinary tract infection, lithotripsy, multiple disorders, rheumatoid arthritis, right knee arthroscopy, parathyroid disease, parathyroidectomy, smoking cessation, stopped in 2018, anemia, blood transfusions. IMMUNIZATIONS: All up-to-date. ALLERGIES: THE PATIENT HAS AN ADVERSE REACTION TO VANCOMYCIN. FAMILY HISTORY: Positive for parathyroid tumors, Hennessy's esophagus, heart attacks and the like. SOCIAL HISTORY: The patient has stopped smoking in 2018. Denies alcohol use. Full code. REVIEW OF SYSTEMS: Generalized weakness. Denies chest pain, shortness of breath except with exertion. The patient denies abdominal pain. Denies any melena, hematochezia, hematemesis, nausea or vomiting. PHYSICAL EXAMINATION: GENERAL: Pleasant white female looking a little bit pale. VITAL SIGNS: Blood pressure 120/50, respiratory rate 18, pulse 70, afebrile. HEENT: The patient's head was atraumatic, normocephalic. Eyes: PERRLA without jaundice. Mouth and throat were normal. NECK: Supple, no JVD or thyromegaly. LUNGS: Diminished throughout, but basically clear. CARDIOVASCULAR: Regular sinus rhythm, S1, S2, without murmur, rub, thrill, or extra heart sound. ABDOMEN: Soft, nontender, no rebound or guarding. Positive bowel sounds, no hepatosplenomegaly was noted. EXTREMITIES: No clubbing, cyanosis, nor edema. NEUROLOGIC: The patient was alert and oriented x3. LABORATORY DATA: Hemoglobin and hematocrit as noted 6.9 and 22. The patient's BUN and creatinine of 26 and 1.1. Liver enzymes came down to normal range. The patient has moderate protein malnutrition. UA did show occasional red blood cells and 5-10 whites. Culture being done on that. Stool hemoccult was negative. IMPRESSION: Anemia of unknown etiology. CT scan was indicative of a possible thickening of the bladder wall, which would be indicative possibly further consolidation or nondistention cystitis or obviously pathology such as a neoplasm. She does have a history of smoking. She does see a urologist at and said she would make the call to him and make an appointment as I recommended that expeditiously to get her reviewed by that physician. HERBERT ZUNIGA MD DR: BERTA/eugene JOB#: [id number] / [id number]
--- NOTE | 2020-06-21 17:12 | RAD ---
EXAM: CT Lumbar Spine without IV contrast INDICATION: Reason: severe pain TECHNIQUE: Multi-detector row CT images were obtained through the lumbar spine without the use of IV contrast. Post-processing sagittal and coronal reconstructed images were obtained for interpretation . All CT scans performed at this facility utilize dose optimization techniques as appropriate to the exam, including the following: Automated exposure control and adjustment of the mA and/or KV accordin g to patient size (this includes techniques or standardized protocols for targeted exams where dose i s indication/reason for exam). COMPARISON: Abdomen and pelvis CT without IV contrast of 06/20/2020 FINDINGS: The lowest fully formed disc is referred to as the L5-S1 level. ALIGNMENT: There is marked levoscoliosis with apex at L3, Sandy angle of 40 degrees as measured from t he superior endplate of L1 to the inferior endplate of L4. In addition, there is leftward lateral lis thesis of L4 on L5 of 11 mm, L3 on L4 of 7 mm and rightward listhesis of and L1 on L2 of 7 mm. No sig nificant anterolisthesis or retrolisthesis is identified. OSSEOUS: Bones are diffusely osteopenic. No acute fracture or aggressive appearing bony lesions are seen. DISC SPACES: Marked disc space degenerative change at multiple levels is present, most conspicuously on the right at L1-L2, L2-L3 and L3-L4, diffusely at L4-5, and on the left at L5-S1. These are manif ested as disc space narrowing and vacuum phenomenon with variable associated osteophytic spurring. FACET JOINTS: Varying degrees of degenerative change, including severe degenerative change on the ri ght at L5-S1, L4-5 and L3-L4 and similar degenerative changes present on the left most conspicuously at L2-L3, L3-L4 and L4-L5. SPINAL CANAL: Mild AP flattening at L3-L4 and circumferential narrowing at L4-L5 due to bulky facet hypertrophic change and disc degenerative change. NEUROFORAMINA: Varying degrees of foraminal stenosis including severe stenosis on the right at L2-L3 and L3-L4 and on the left at L5-S1. SOFT TISSUES: Scattered arterial calcifications, 11 mm nonobstructing stone in the inferior pole rig ht kidney, and a large hiatal hernia. 11 mm right adrenal nodule compatible with adenoma also noted. IMPRESSION: Severe levoscoliosis with degenerative changes in the disks and facets as described, resulting in pre dominantly foraminal stenoses but varying degrees of central canal stenosis as well. This would be be tter evaluated if clinically warranted with CT lumbar myelography or MRI. No fracture or aggressive o sseous lesions noted. Electronically signed by: Klaus Alvarado MD (06/21/2020 5:10 PM) [id number]
[2020-06-23] MEDS ORDERED: ASPIRIN CHEWABLE 81 MG TABLET. PO SCH (09:00)
== END 2020-06-21 12:55 | disposition home or self-care (01) | DRG 812 ==
LOC: ER 17:19 → 1 SOUTH 19:47
PROVIDERS: ADMIT Family Medicine; ATTEND Family Medicine
PROC: 30233N1 Transfusion of Nonautologous Red Blood Cells into Peripheral Vein, Percutaneous Approach (ICD-10-PCS; principal; 2020-06-21)
DX: D64.9 Anemia, unspecified (principal); E44.0 Moderate protein-calorie malnutrition; N30.90 Cystitis, unspecified without hematuria; E78.00 Pure hypercholesterolemia, unspecified; G89.29 Other chronic pain; I11.0 Hypertensive heart disease with heart failure; I25.10 Atherosclerotic heart disease of native coronary artery without angina pectoris; I25.2 Old myocardial infarction; I48.91 Unspecified atrial fibrillation; I50.9 Heart failure, unspecified; J44.9 Chronic obstructive pulmonary disease, unspecified; K22.70 Barrett's esophagus without dysplasia; K44.9 Diaphragmatic hernia without obstruction or gangrene; M06.9 Rheumatoid arthritis, unspecified; Z79.02 Long term (current) use of antithrombotics/antiplatelets; Z79.82 Long term (current) use of aspirin; Z87.442 Personal history of urinary calculi; Z87.891 Personal history of nicotine dependence; E66.9 Obesity, unspecified; K21.9 Gastro-esophageal reflux disease without esophagitis; M19.90 Unspecified osteoarthritis, unspecified site; Z68.34 Body mass index [BMI] 34.0-34.9, adult
CPT/HCPCS: 36415; 71045; 72131; 74176; 80053; 81001; 82274; 82306; 83880; 84165; 84484; 85025; 85379; 85610; 85730; 86160; 86200; 86235; 86334; 86431; 86850; 86900; 86901; 86920; 87086; 93005; 96374; C9113; P9016; 99285-25; J7030

== ENCOUNTER → 2020-06-20 | Outpatient (CLI) | payer MEDICARE, OTHER ==
[2020-05-26 11:30] VITALS: BP 124/56
[~2020-06-20] MED LIST changes: +ACET500T68 PO; +APIX2.5T PO; +APIX5TAB3 PO; +CHOL20009 PO; +CLOP75TA PO; +EZET10TA20 PO; +GABA-586 PO; +GABA100C81 PO; +MECL-75 PO; +MELA10TA PO; +MULT-658 PO; +PANT40TA6 PO; +SOTA160T PO; +SUCR1ORA5 PO; +VITA1TAB19 PO
[2020-06-20 16:07] LABS: BASO % 1 % (0-3); EOS # 0.2 x10^3/uL (0.0-0.7); EOS % 6 % (0-3); HEMATOCRIT 23.4 % (36.0-47.0); HEMOGLOBIN 7.1 g/dL (12.0-15.5); LYMPH # 1.2 x10^3/uL (1.0-4.8); LYMPH % 32 % (24-48); MEAN CORPUSCULAR HEMOGLOBIN 27 pg (25-35); MEAN CORPUSCULAR HGB CONC 30 g/dL (31-37); MEAN CORPUSCULAR VOLUME 88 fL (79-100); MONO # 0.4 x10^3/uL (0.0-1.1); MONO % 11 % (0-9); NEUT # 1.9 x10^3uL (1.8-7.7); NEUT % 51 % (31-73); PLATELET COUNT 236 x10^3/uL (140-400); RED BLOOD COUNT 2.66 x10^6/uL (3.50-5.40); RED CELL DISTRIBUTION WIDTH 18.4 % (11.5-14.5); WHITE BLOOD COUNT 3.7 x10^3/uL (4.0-11.0)
[2020-06-20 16:13] LABS: ALBUMIN 3.5 g/dL (3.4-5.0); ALBUMIN/GLOBULIN RATIO 1.2 (1.0-1.7); CALCIUM 9.1 mg/dL (8.5-10.1); CREATININE 1.2 mg/dL (0.6-1.0); GFR 43.3; TOTAL BILIRUBIN 0.4 mg/dL (0.2-1.0); TOTAL PROTEIN 6.4 g/dL (6.4-8.2)
[2020-06-20 23:09] LABS: C3 COMPLEMENT 100 mg/dL (82-167); C4 COMPLEMENT 16 mg/dL (12-38); RHEUMATOID FACTOR 27.1 IU/mL (0.0-13.9)
[2020-06-21 15:12] LABS: SSA ANTIBODY <0.2 AI (0.0-0.9); SSB ANTIBODY <0.2 AI (0.0-0.9)
[2020-06-22 15:10] LABS: IMMUNOGLOBULIN A 185 mg/dL (64-422); IMMUNOGLOBULIN G 706 mg/dL (586-1602); IMMUNOGLOBULIN M 33 mg/dL (26-217)
[2020-06-22 16:20] LABS: ALBUM 3.4 g/dL (2.9-4.4); ALPHA 1 0.2 g/dL (0.0-0.4); ALPHA 2 0.6 g/dL (0.4-1.0); BETA 0.8 g/dL (0.7-1.3); GAMMA 0.7 g/dL (0.4-1.8); PROTEIN TOTAL 5.8 g/dL (6.0-8.5); SPEP AG RATIO 1.4 (0.7-1.7)
[2020-06-22 23:15] LABS: CYCLIC CITRULLIN PEP AB 3 units (0-19)
== END ==
LOC: LAB 14:48
PROVIDERS: ATTEND Internal Medicine Rheumatology
DX: K22.70 Barrett's esophagus without dysplasia (principal); R76.0 Raised antibody titer; R76.8 Other specified abnormal immunological findings in serum; M05.79 Rheumatoid arthritis with rheumatoid factor of multiple sites without organ or systems involvement
CPT/HCPCS: 36415; 80053; 82306; 84165; 85025; 86160; 86200; 86235; 86334; 86431

== ENCOUNTER 2020-09-12 17:39 | Inpatient (IN) | payer MEDICARE, OTHER ==
[~2020-09-12] VITALS: Ht 162.6 cm; Wt 86.6 kg
[~2020-09-12 17:39] MED LIST changes: +CLOP75TA PO; +GABA-586 PO
[2020-09-12] MEDS ORDERED: IV NORMAL SALINE 1,000ML 1,000 ML IV ONE (18:00)
[2020-09-12] MEDS ORDERED: ONDANSETRON PF 4 MG/2 ML VIAL. IVP ONE (18:15)
[2020-09-12] MEDS: dilTIAZem 25 MG/5 ML VIAL IVP ONE ×2 (18:15→18:55)
--- NOTE | 2020-09-12 18:18 | EKG ---
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
[2020-09-12] MEDS ORDERED: FAMOTIDINE 20 MG/2 ML VIAL IVP ONE (18:30)
--- NOTE | 2020-09-12 18:46 | PHYS DOC ---
Past History Past Medical History: A-Fib, Anemia, Arthritis, CHF, COPD, Kidney Stones, SC, UTI, Other Additional Past Medical Histor: Barretts esophagus Past Surgical History: , Pacemaker, Other Additional Past Surgical Histo: ureter stent, watchman, cardiac stent Smoking: Cigarettes Alcohol Use: None Drug Use: None General Adult EDM: Chief Complaint: NAUSEA/DIARRHEA HPI: HPI: 80-year-old female presents emergency department with nausea and diarrhea that began Thursday night and has not stopped since then. Patient was brought via EMS to the ED because she stated that she wanted to go to [facility], but felt like she could not get on the house by her own accord. She is accompanied by her 2 granddaughters. Patient states that since the onset of diarrhea on Thursday night she has not been able to eat or drink much, she states that the last time she ate was 3 crackers yesterday afternoon. Patient states that she feels very thirsty but does not drink anything out of fear of diarrhea. Patient had substantial medical work done last week including a PET scan and EGD for potential esophageal cancer as well, and her second COVID vaccine. Patient has a history of A. fib, Hennessy's esophagus, CAD, and hypertension. EMS reports her heart rate was around 170 with an irregular rate and rhythm. Patient denies use of A. fib medications because she has been in normal rate and rhythm for some time now before this current event. Patient is not aware for how long that she has been normal rate and rhythm, but notes that she was taken off her medication because of this reason. Patient also states that she has not been taking any of her normal medications for the past couple weeks in preparation for her medical exams and tests. Patient is taking Zofran for nausea, but it is not helping as the patient continues to be nauseous and has diarrhea. Patient denies any recent sick contacts. Patient denies any abdominal pain or any radiating pain anywhere else from her abdomen or chest. Review of Systems: Review of Systems: Constitutional: Denies fever or chills Eyes: Denies redness or eye pain HENT: Denies nasal congestion or sore throat Respiratory: Denies cough or shortness of breath Cardiovascular: Denies chest pain; reports palpitations GI: Denies abdominal pain and vomiting; reports nausea and diarrhea : Denies dysuria or hematuria Musculoskeletal: Denies back pain or joint pain Integument: Denies rash or skin lesions Neurologic: Denies headache, focal weakness or sensory changes Complete systems were reviewed and found to be within normal limits, except as documented in this note. Current Medications: Current Meds: Current Medications Medications (Trade) Dose Ordered Sig/Osvaldo Start Time Stop Time Status Last Admin Dose Admin Diltiazem HCl (Cardizem Iv Push) 20 mg 1X ONCE 09/12/20 18:15 09/12/20 18:16 DC Diltiazem HCl 125 mg/Sodium Chloride 125 ml @ 5 mls/hr CONT PRN 09/12/20 18:15 Famotidine (Pepcid Vial) 20 mg 1X ONCE 09/12/20 18:30 09/12/20 18:31 UNV Ondansetron HCl (Zofran) 4 mg 1X ONCE 09/12/20 18:15 09/12/20 18:16 DC Sodium Chloride 1,000 ml @ 1,000 mls/hr 1X ONCE 09/12/20 18:00 09/12/20 18:59 Allergies: Allergies: Allergies Coded Allergies Type Severity Reaction Last Updated Verified vancomycin Allergy Mild 09/12/20 Yes Physical Exam: PE: Constitutional: Well developed, well nourished, no acute distress, non-toxic appearance HENT: Normocephalic, atraumatic Eyes: Conjunctiva normal, no discharge Neck: Normal range of motion, supple Lungs & Thorax: No respiratory distress, equal chest rise and fall Abdomen: Soft, no tenderness Skin: Warm, dry, no erythema, no rash Extremities: No tenderness, ROM intact, no edema Neurologic: Alert and oriented X 3, no focal deficits noted Psychologic: Affect normal, judgment normal Cardiac: Irregular rate and rhythm Current Patient Data: Vital Signs: Vital Signs Date Time Temp Pulse Resp B/P (MAP) Pulse Ox O2 Delivery O2 Flow Rate FiO2 09/12/20 17:52 98.3 164 31 113/55 (74) 97 Room Air EKG: EK, HR 161, Irregular rate and rhythm, QT/QTc 288/472, QRS 84 Radiology/Procedures: Radiology/Procedures: [] Heart Score: C/O Chest Pain: No Course & Med Decision Making: Course & Med Decision Making Pertinent Lab studies reviewed. (See chart for details) Elderly patient presents with report of nausea and diarrhea. EMS found patient in Afib RVR. Abdomen nonperitoneal. EKG with continued Afib RVR. IVF hydration given. Labs obtained and posted to chart. Troponin WNL. Hypokalemia addressed. Cardizem bolus and gtt initiated. Stool studies ordered and pending as patient unable to provide stool sample. Patient requiring admission. Patient requesting to be admitted to [facility] because that is where her doctors are including her company driver- Dr. Guaman. Rapid COVID testing obtained in anticipation that patient requests admission to [facility]. Utilized [facility] transfer center. Report that [facility] does not have a telemetry bed at this time. Offer another [facility] facility for acceptance. Patient declined and instead with request to be admitted to her PCP at [facility]. Patient requiring admission for further evaluation and treatment. Discussed with Dr. Zuniga (PCP) who is in agreement with admit. Discussed findings and plan with patient and family, who acknowledge understanding and agreement. Dragon Disclaimer: Dragon Disclaimer: This electronic medical record was generated, in whole or in part, using a voice recognition dictation system. Departure Departure: Impression: Primary Impression: Atrial fibrillation with RVR Additional Impressions: Nausea Diarrhea Qualified Codes: R19.7 - Diarrhea, unspecified Hypokalemia Disposition: ADMITTED INPT THIS HOSP Admitting Physician: Tj Zuniga Condition: STABLE Referrals: TJ ZUNIGA MD (PCP) Critical Care Time Critical care time was 30 minutes which includes time at bedside, spent in discussion of patient's care with specialists and/or family members, with interpretation of laboratory and/or radiological studies and is exclusive of procedures. KYLE HUANG DO Sep 12, 2020 18:46
[2020-09-12 19:22] LABS: MEAN CORPUSCULAR HGB CONC 32 g/dL (31-37)
[2020-09-12] MEDS: dilTIAZem VIAL 125 MG in IV NORMAL SALINE 100ML 100 ML IV PRN (20:01)
[2020-09-12 20:37] LABS: ANION GAP 15 (6-14); BLOOD UREA NITROGEN 21 mg/dL (7-20); BUN/CREATININE RATIO 21 (6-20); CALCIUM 8.6 mg/dL (8.5-10.1); CARBON DIOXIDE 18 mmol/L (21-32); CHLORIDE 110 mmol/L (98-107); GFR 53.5; GLUCOSE 94 mg/dL (70-99); POTASSIUM 3.3 mmol/L (3.5-5.1); SODIUM 143 mmol/L (136-145)
[2020-09-12 20:39] LABS: HEMOGLOBIN 12.3 g/dL (12.0-15.5); MEAN CORPUSCULAR VOLUME 99 fL (79-100); RED BLOOD COUNT 3.93 x10^6/uL (3.50-5.40)
[2020-09-12 20:40] LABS: MEAN CORPUSCULAR HEMOGLOBIN 31 pg (25-35)
[2020-09-12 20:41] LABS: PLATELET COUNT 166 x10^3/uL (140-400); RED CELL DISTRIBUTION WIDTH 20.5 % (11.5-14.5)
[2020-09-12 20:43] LABS: WHITE BLOOD COUNT 4.8 x10^3/uL (4.0-11.0)
[2020-09-12 20:53] LABS: ALBUMIN 3.1 g/dL (3.4-5.0); ALBUMIN/GLOBULIN RATIO 1.2 (1.0-1.7); ALK PHOS 74 U/L (46-116); ALT (SGPT) 24 U/L (14-59); AST (SGOT) 36 U/L (15-37); MAGNESIUM 1.7 mg/dL (1.8-2.4); TOTAL BILIRUBIN 0.4 mg/dL (0.2-1.0); TOTAL PROTEIN 5.7 g/dL (6.4-8.2)
[2020-09-12] MEDS ORDERED: ASPIRIN ENTERIC COATED 325 MG TABLET.DR. PO ONE (21:30)
[2020-09-12] MEDS ORDERED: POTASSIUM CHLORIDE 10 MEQ TABLET.ER. PO ONE (21:30)
[2020-09-12 22:03] LABS: % BANDS 13 % (0-9); % EOS 1 % (0-5); % LYMPHS 21 % (24-48); % MONOS 12 % (0-10); % SEGS 53 % (35-66)
[2020-09-12 22:05] LABS: ANISOCYTOSIS SLIGHT; PLT ESTIMATE ADEQUATE (ADEQUATE)
[2020-09-12 22:35] VITALS: BP 138/74
--- NOTE | 2020-09-12 22:35 | NUR ---
Pt admitted to ICU bed 6 from ER via [facility], accompanied by EMS and nursing staff. Pt ambulated from gurney to bed with standby assist, steady gait noted. Admission assessment completed. Pt A&Ox4, very pleasant and cooperative with cares & assessments. Pt here for c/o N/V/D since Thursday and found to be in Afib RVR. Pt with known hx of Afib, has not been taking her home medications for the last few days r/t N/V. Pt with frequent brown liquid stools, has had multiple - C.Diff sample collected and sent for testing and placed in precautions. Health history & home medications review with pt, paper copy of meds in chart. Pt has had her 2 doses of Moderna vaccine, 2nd dose given on 09/05/20. ER did Covid swab pt for symptoms and possible tx to [facility], PCR still pending but rapid was negative, placed in precautions. Pt lives at home with Grandson. Plavix & ASA for VTE. Dietary consulted. Discussed POC with pt, understanding verbalized. Pt was given written information regarding hospital policies, unit procedures and contact persons. Valuables were checked and left at bedside per pt request. Dr. Ruffin called for new orders & updated on status, orders received. Pt with IV Cardizem gtt running for rate control. Call light in reach.
[2020-09-12 23:05] VITALS: BP 120/98
[2020-09-12 23:35] VITALS: BP 132/81
[2020-09-12] MEDS: ONDANSETRON PF 4 MG/2 ML VIAL. IVP PRN (23:36)
[2020-09-12] MEDS ORDERED: MAGNESIUM SULFATE 2GM 50 ML IV ONE (23:45)
[2020-09-13] VITALS (29 sets, daily range): BP systolic 96–148; BP diastolic 46–129
[2020-09-13 04:11] LABS: FECAL OB PT NEGATIVE (NEG)
[2020-09-13] MEDS: dilTIAZem VIAL 125 MG in IV NORMAL SALINE 100ML 100 ML IV PRN ×2 (05:17→13:54)
--- NOTE | 2020-09-13 06:05 | NUR ---
Pt remained on Cardizem gtt during night (currently at 12mg/hr), still in Afib but with rate improvement (90-120's). Pt up frequently during night to use BSC for loose BM, HR would increase to 130-150's when up but quickly lower when back in bed. Pt had no vomiting this shift but c/o nausea twice, PRN Zofran given.
--- NOTE | 2020-09-13 07:39 | PDOC2 ---
CARDIAC CONSULT DATE OF CONSULT DOS: DATE: 09/13/20 TIME: 07:35 REASON FOR CONSULT Reason for Consult AFIB with RVR REFERRING PHYSICIAN Referring Physician Dr. Brunner SOURCE Source: Chart review, Patient HPI History of Present Illness This is a 80 yo female who presented secondary to persistent nausea ans diarrhea. Was noted in AFIB with RYR, which prompted this consult. Patient has a history of AFIB. Follows with Dr. Guaman at [facility]. Stopped taking her Sotalol a couple of months ago as she reports is was not refilled. Her tableau developer never discussed discontinuing this medications. Is requesting to be transferred to [facility]. Recently underwent extensive workup through hemonc at [facility] and was scheduled to see him in followup today for results. Reports having persistent nausea and vomiting since the weekend. Denies any chest pain or SOA. Could tell her heart was beating fast. Is presently on Cardizem gtt; rate intermittently elevated. Patient reports her heart rate is e levated because she is worked up. Would like to get to [facility] as soon as possible. PAST MEDICAL HISTORY Cardiovascular: AFIB (s/p Watchman ), CAD, CHF, HTN, hyperipidemia Pulmonary: COPD CENTRAL NERVOUS SYSTEM: Periperal neuropathy GI: GERD, Other (Barretts Esophagus ) Heme/Onc: Anemia NOS (requiring transfusion ) Rheumatologic: Rheumatoid arthritis Endocrine: Hyperparathyroidism PAST SURGICAL HISTORY Past Surgical History Other ( (x1), Other (right parathyroid removal. )) Past Surgical History: Appendectomy, Tonsillectomy FAMILY HISTORY Family History: Heart Disease SOCIAL HISTORY Smoke: Quit ALCOHOL: none Drugs: None CURRENT MEDICATIONS Current Medications Current Medications Sodium Chloride 1,000 ml @ 1,000 mls/hr 1X ONCE IV Last administered on 09/12/20at 18:43; Start 09/12/20 at 18:00; Stop 09/12/20 at 18:59; Status DC Ondansetron HCl (Zofran) 4 mg 1X ONCE IVP Last administered on 09/12/20at 18:46; Start 09/12/20 at 18:15; Stop 09/12/20 at 18:16; Status DC Diltiazem HCl (Cardizem Iv Push) 20 mg 1X ONCE IVP Last administered on 09/12/20at 18:15; Start 09/12/20 at 18:15; Stop 09/12/20 at 18:16; Status DC Diltiazem HCl 125 mg/Sodium Chloride 125 ml @ 5 mls/hr CONT PRN IV SEE I/O RECORD Last administered on 09/13/20at 05:17; Start 09/12/20 at 18:15 Famotidine (Pepcid Vial) 20 mg 1X ONCE IVP Last administered on 09/12/20at 18:47; Start 09/12/20 at 18:30; Stop 09/12/20 at 18:36; Status DC Potassium Chloride (Klor-Con) 40 meq 1X ONCE PO Last administered on 09/12/20at 23:36; Start 09/12/20 at 21:30; Stop 09/12/20 at 21:31; Status DC Aspirin (Aspirin Enteric Coated) 325 mg 1X ONCE PO Last administered on 09/12/20at 23:36; Start 09/12/20 at 21:30; Stop 09/12/20 at 21:31; Status DC Ondansetron HCl (Zofran) 4 mg PRN Q6HRS PRN IVP NAUSEA/VOMITING Last administered on 09/12/20at 23:36; Start 09/12/20 at 23:30 Magnesium Sulfate 50 ml @ 25 mls/hr 1X ONCE IV Last administered on 09/12/20at 23:37; Start 09/12/20 at 23:45; Stop 09/13/20 at 01:44; Status DC Active Scripts Active Reported Clopidogrel (Clopidogrel Bisulfate) 75 Mg Tablet 75 Mg PO DAILY LAST DOSE GIVEN: DATE: TIME: NEXT DOSE DUE: DATE: TIME: Aspirin 81 Mg Tab.chew 81 Mg PO DAILY LAST DOSE GIVEN: DATE: TIME: NEXT DOSE DUE: DATE: TIME: Gabapentin (Gabapentin) 300 Mg Capsule 300 Mg PO TID LAST DOSE GIVEN: DATE: TIME: NEXT DOSE DUE: DATE: TIME: Acetaminophen 500 Mg Tablet 1,000 Mg PO PRN Q8HRS PRN LAST DOSE GIVEN: DATE: TIME: NEXT DOSE DUE: DATE: TIME: Centrum Silver Tablet (Multivits-Min/Fa/Lycopene/Lut) 1 Each Tablet 1 Each PO DAILY LAST DOSE GIVEN: DATE: TIME: NEXT DOSE DUE: DATE: TIME: B Complex (Vitamin B Complex) 1 Each Tablet 1 Each PO DAILY LAST DOSE GIVEN: DATE: TIME: NEXT DOSE DUE: DATE: TIME: Vitamin D3 (Cholecalciferol (Vitamin D3)) 50 Mcg Capsule 50 Mcg PO DAILY LAST DOSE GIVEN: DATE: TIME: NEXT DOSE DUE: DATE: TIME: Zetia (Ezetimibe) 10 Mg Tablet 10 Mg PO DAILY LAST DOSE GIVEN: DATE: TIME: NEXT DOSE DUE: DATE: TIME: Pantoprazole Sodium 40 Mg Tablet.dr 40 Mg PO BID LAST DOSE GIVEN: DATE: TIME: NEXT DOSE DUE: DATE: TIME: Melatonin 10 Mg Tablet 10 Mg PO HS LAST DOSE GIVEN: DATE: TIME: NEXT DOSE DUE: DATE: TIME: Atorvastatin Calcium 80 Mg Tablet 80 Mg PO QHS LAST DOSE GIVEN: DATE: TIME: NEXT DOSE DUE: DATE: TIME: Folic Acid 1 Mg Tablet 1 Mg PO DAILY LAST DOSE GIVEN: DATE: TIME: NEXT DOSE DUE: DATE: TIME: ALLERGIES Allergies: Coded Allergies: vancomycin (Verified Allergy, Mild, 09/12/20) ROS Review of Systems 14 point ROS conducted with pertinent positives noted above in HPI PHYSICAL EXAM Physical Exam General: Alert, Oriented X3, Cooperative, No acute distress HEENT: Atraumatic, Mucous membr. moist/pink Lungs: Clear to auscultation Heart: IRRR; tele AFIB with intermittent RVR Abdomen: No tenderness Extremities: No edema, Normal pulses Neuro: Normal speech, Sensation intact Psych/Mental Status: Mental status NL, Mood NL MUSCULOSKELETAL: Osteoarthritic changes both hands VITALS Vital Signs Vital Signs Date Time Temp Pulse Resp B/P (MAP) Pulse Ox O2 Delivery O2 Flow Rate FiO2 09/13/20 06:40 98.0 120 24 114/74 (87) Room Air 09/13/20 06:15 96 LABS LABS Laboratory Tests Test 09/12/20 18:04 09/12/20 18:49 09/12/20 20:09 Stool Occult Blood Negative (NEG) SARS-CoV-2 Antigen (Rapid) Negative (NEGATIVE) White Blood Count 4.8 x10^3/uL (4.0-11.0) Red Blood Count 3.93 x10^6/uL (3.50-5.40) Hemoglobin 12.3 g/dL (12.0-15.5) Hematocrit 39.0 % (36.0-47.0) Mean Corpuscular Volume 99 fL (79-100) Mean Corpuscular Hemoglobin 31 pg (25-35) Mean Corpuscular Hemoglobin Concent 32 g/dL (31-37) Red Cell Distribution Width 20.5 % (11.5-14.5) Platelet Count 166 x10^3/uL (140-400) Neutrophils (%) (Auto) % (31-73) Lymphocytes (%) (Auto) % (24-48) Monocytes (%) (Auto) % (0-9) Eosinophils (%) (Auto) % (0-3) Basophils (%) (Auto) % (0-3) Neutrophils # (Auto) x10^3uL (1.8-7.7) Lymphocytes # (Auto) x10^3/uL (1.0-4.8) Monocytes # (Auto) x10^3/uL (0.0-1.1) Eosinophils # (Auto) x10^3/uL (0.0-0.7) Basophils # (Auto) x10^3/uL (0.0-0.2) Segmented Neutrophils % 53 % (35-66) Band Neutrophils % 13 % (0-9) Lymphocytes % 21 % (24-48) Monocytes % 12 % (0-10) Eosinophils % 1 % (0-5) Platelet Estimate Adequate (ADEQUATE) Anisocytosis Slight Sodium Level 143 mmol/L (136-145) Potassium Level 3.3 mmol/L (3.5-5.1) Chloride Level 110 mmol/L (98-107) Carbon Dioxide Level 18 mmol/L (21-32) Anion Gap 15 (6-14) Blood Urea Nitrogen 21 mg/dL (7-20) Creatinine 1.0 mg/dL (0.6-1.0) Estimated GFR (Cockcroft-Gault) 53.5 BUN/Creatinine Ratio 21 (6-20) Glucose Level 94 mg/dL (70-99) Calcium Level 8.6 mg/dL (8.5-10.1) Magnesium Level 1.7 mg/dL (1.8-2.4) Total Bilirubin 0.4 mg/dL (0.2-1.0) Aspartate Amino Transf (AST/SGOT) 36 U/L (15-37) Alanine Aminotransferase (ALT/SGPT) 24 U/L (14-59) Alkaline Phosphatase 74 U/L (46-116) Creatine Kinase 35 U/L (26-192) Creatine Kinase MB (Mass) 1.1 ng/mL (0.0-3.6) Creatine Kinase MB Relative Index % (0-4) Troponin I Quantitative < 0.017 ng/mL (0-0.055) Total Protein 5.7 g/dL (6.4-8.2) Albumin 3.1 g/dL (3.4-5.0) Albumin/Globulin Ratio 1.2 (1.0-1.7) ECHOCARDIOGRAM Echocardiogram <Conclusion> The left ventricular systolic function is normal. The Ejection Fraction is 60-65%. There is normal LV segmental wall motion. Mild mitral regurgitation. Trace to mild tricuspid regurgitation. The PASP is 41mmHg. There is no evidence of significant pericardial effusion. DATE: 09/29/17 2309 ASSESSMENT/PLAN Assessment/Plan 1. Persistent nausea, diarrhea 2. PAFIB with RVR; s/p Watchman. previously on Sotalol for rhythm maintenance, but she ran out and her tableau developer office did not refill. 3. CAD s/p PCI/stent 12/2017. Follow with 4. Chronic diastolic CHF; Echo 09/23 with preserved LV systolic function. 5. SSS s/p PPM ([employer]) 6. Hypertension; low end 7. Hyperlipidemia 8. Hypomagnesemia; replaced 9. Anemia; hgb stable Recommendations On Cardizem gtt Will give dose of Digoxin Patient apprehensive to start additional meds for rate control Would like to be transferred to [facility] for further evaluation and treatment. Resume ASA, Plavix therapy Supportive care SUMA GLASGOW APRN Sep 13, 2020 07:39
[2020-09-13] MEDS ORDERED: ACETAMINOPHEN 500 MG TABLET PO PRN (08:00)
[2020-09-13] MEDS ORDERED: ELECTROLYTE (NON-ICU) PROTOCOL. MC PRN (08:45)
[2020-09-13] MEDS ORDERED: PANTOPRAZOLE 40 MG TABLET. PO SCH (09:00)
[2020-09-13] MEDS ORDERED: CLOPIDOGREL BISULFATE 75 MG TABLET PO SCH (09:00)
[2020-09-13] MEDS ORDERED: CHOLECALCIFEROL (VITAMIN D3) 1,000 UNIT TABLET PO SCH (09:00)
[2020-09-13] MEDS ORDERED: VITAMIN B COMPLEX CAPSULE. PO SCH (09:00)
[2020-09-13] MEDS ORDERED: MULTIVITAMIN with MINERAL TABLET. PO SCH (09:00)
[2020-09-13] MEDS ORDERED: ASPIRIN CHEWABLE 81 MG TABLET. PO SCH (09:00)
[2020-09-13] MEDS ORDERED: EZETIMIBE 10 MG TABLET PO SCH (09:00)
[2020-09-13] MEDS ORDERED: FOLIC ACID 1 MG TABLET PO SCH (09:00)
[2020-09-13] MEDS: GABAPENTIN 300 MG CAPSULE. PO SCH ×2 (09:00→14:00)
[2020-09-13] MEDS ORDERED: DIGOXIN IV 500 MCG/2 ML AMPUL. IV ONE ×2 (09:00→13:45)
[2020-09-13] MEDS: ONDANSETRON PF 4 MG/2 ML VIAL. IVP PRN (09:49)
[2020-09-13] MEDS ORDERED: METOPROLOL TARTRATE 5 MG/5 ML VIAL. IV ONE (13:45)
--- NOTE | 2020-09-13 16:06 | NUR ---
Pt discharged via EMS to [facility] ICU6. A/Ox4, no pain, cardizem gtt at 12mg/hr infusing in R hand IV. Pt packed all of her belongings. Report given to LAUREN Phillips RN, all medications/drips/belongings/and plan of care reviewed with RN. Pt notified family of transfer.
--- NOTE | 2020-09-13 20:28 | HP ---
ADMIT DATE: HISTORY OF PRESENT ILLNESS: The patient is a 80-year-old female who came in through the Emergency Room with nausea and diarrhea began 3 days prior to admission. The patient also noted she was having fluttering sensations in her chest, felt lightheaded and was dizzy. The patient also noted that when she was in the Emergency Room, the patient was noted to have an irregular heart rhythm and her atrial fibrillation was about 180 beats per minute. The patient was admitted for atrial fibrillation with rapid ventricular response and further evaluation of her other symptoms, which were miniscule, but the main part was that her AFib was RVR. Her SARS is negative. PAST MEDICAL HISTORY: The patient is being evaluated for esophageal cancer down at [facility], tonsillectomy, heart attack in 12/2017, CHF, stent placement, cardiac catheterization, Watchman pacemaker, Plavix, hypercholesterolemia, COPD, Hennessy's esophagus, gallbladder disease, gallstones, , obesity, kidney stones, lithotripsy, rheumatoid arthritis, orthopedic surgery, right knee; parathyroid disease, parathyroidectomy, history of smoking, quit in 2016, insomnia, anemia, blood transfusions. IMMUNIZATIONS: For influenza up-to-date. ALLERGIES: TO VANCOMYCIN. FAMILY HISTORY: Positive for myocardial infarction, heart attack, benign parathyroid tumor in the mother and Hennessy's esophagus in the father. SOCIAL HISTORY: The patient has already had a [id number] history of smoking, quit 2016. The patient is a full code. Denies alcohol, hard drug use. REVIEW OF SYSTEMS: As noted, some nausea, vomiting and diarrhea as well as fluttering in her chest, but no chest pain per se. PHYSICAL EXAMINATION: GENERAL: This is a very pleasant white female, in moderate amount of discomfort. VITAL SIGNS: Initial blood pressure 100/53, respiratory rate 22, pulse 124 with rates up as high as 150. She is afebrile. HEENT: Otherwise, the patient's head was atraumatic, normocephalic. Eyes: PERRLA without jaundice. The mouth and throat were normal. NECK: Supple. CARDIOVASCULAR: Irregularly irregular rhythm, tachycardic. ABDOMEN: Soft, nontender. EXTREMITIES: Without clubbing, cyanosis, nor edema. NEUROLOGIC: The patient was alert and oriented x 3. LABORATORY DATA: The patient's labs demonstrate white count of 4.8. There was a left shift of bands a 13 high. Chemistries, slightly low potassium of 3.3 and magnesium low at 1.7, otherwise, BUN and creatinine 21 and 1 with a GFR of 53. Blood sugar was good at 94. The patient's stool Hemoccult is negative. IMPRESSION: Otherwise, atrial fibrillation with rapid ventricular response, possible esophageal cancer, diarrhea, nausea, vomiting, probably latter was gastroenteritis. The patient will be adjusted on her potassium, started on a Cardizem drip at 12 mg per hour, also given Lanoxin 500 mcg one time and 250 6 hours later. We will hold off. She was transferred per patient's request to [facility] where she has had further workup on her esophageal problems and other heart related problems. PLAN: The patient will be transferred via EMS. Discussions were made with Dr. Maximiliano mason at [facility] and make further evaluation once that area has been clarified and transferred to their ICU. HERBERT ZUNIGA MD DR: BERTA/eugene JOB#: [id number] / [id number]
[2020-09-13] MEDS ORDERED: ATORVASTATIN CALCIUM 20 MG TABLET PO SCH (21:00)
[2020-09-13] MEDS ORDERED: METOPROLOL TART IMMED RELEASE 50 MG TABLET PO SCH (21:00)
[2020-09-13] MEDS ORDERED: MELATONIN 3 MG TABLET PO SCH (21:00)
== END 2020-09-13 16:00 | disposition short-term general hospital (02) | DRG 309 ==
LOC: ER 17:39 → ICU 21:32
PROVIDERS: ADMIT Family Medicine; ATTEND Family Medicine
DX: I48.0 Paroxysmal atrial fibrillation (principal); I50.32 Chronic diastolic (congestive) heart failure; R11.2 Nausea with vomiting, unspecified; R19.7 Diarrhea, unspecified; D64.9 Anemia, unspecified; E78.5 Hyperlipidemia, unspecified; E87.6 Hypokalemia; I11.0 Hypertensive heart disease with heart failure; I25.10 Atherosclerotic heart disease of native coronary artery without angina pectoris; I49.5 Sick sinus syndrome; J44.9 Chronic obstructive pulmonary disease, unspecified; M06.9 Rheumatoid arthritis, unspecified; Z82.49 Family history of ischemic heart disease and other diseases of the circulatory system; Z87.442 Personal history of urinary calculi; Z87.891 Personal history of nicotine dependence; Z95.0 Presence of cardiac pacemaker; Z95.5 Presence of coronary angioplasty implant and graft; E21.3 Hyperparathyroidism, unspecified; G62.9 Polyneuropathy, unspecified; K21.9 Gastro-esophageal reflux disease without esophagitis; Z88.1 Allergy status to other antibiotic agents; Z20.822 Contact with and (suspected) exposure to COVID-19
CPT/HCPCS: 36415; 80053; 82274; 82553; 83735; 84484; 85007; 85025; 87177; 87209; 87426; 87493; 87505; 93005; 96361; 96365; 96366; 96375; 96376; J1160; J2405; J3475; J3490; U0003; U0005; 99291-25; J7030

== ENCOUNTER → 2021-04-22 | Outpatient (CLI) | payer MEDICARE, OTHER ==
[2020-09-13 16:00] VITALS: BP 143/73
[~2021-04-22] MED LIST changes: +AMIO200T54 PO; -AMIO200T6 PO; +NABU750T11 PO; -NABU750T7 PO
--- NOTE | 2021-04-22 15:53 | RAD ---
EXAM: Thoracic spine, 3 views; lumbar spine, 3 views. HISTORY: Pain. COMPARISON: CT dated 06/21/2020. FINDINGS: Thoracic spine: 3 views of the thoracic spine are obtained. There is thoracic kyphosis. There is dege nerative endplate remodeling with anterior spurring primarily at the mid and lower thoracic levels. T here is a tortuous thoracic aorta. There is a cardiac pacemaker with Leads overlying expected position. There is a right chest wall port catheter with the tip in the righ t atrium. Lumbar spine: 3 views of the lumbar spine are obtained. There is moderate rotatory levo scoliosis vj tered at L2. There is degenerative endplate remodeling with disc space narrowing and osteophytosis th roughout the lumbar spine. There is grade 1 anterolisthesis of L3 on L4, L4 and L5 and L5 on S1. The degenerative changes are primarily along the right aspects of the upper lumbar levels and left aspect s of the lower lumbar levels. This corresponds with the levels of maximum scoliotic concavity. There is degenerative change involving the sacroiliac joints. There is suspected right nephrolithiasis. IMPRESSION: 1. 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 2. Moderate degenerative change involving the mid lower thoracic spine. Electronically signed by: Hiwot Smith MD (04/22/2021 3:51 PM) [id number]
== END ==
LOC: RAD 14:48
PROVIDERS: ATTEND Internal Medicine Rheumatology
DX: M47.814 Spondylosis without myelopathy or radiculopathy, thoracic region (principal); M47.817 Spondylosis without myelopathy or radiculopathy, lumbosacral region; M41.86 Other forms of scoliosis, lumbar region; M48.061 Spinal stenosis, lumbar region without neurogenic claudication; M25.78 Osteophyte, vertebrae; Q25.46 Tortuous aortic arch; M15.9 Polyosteoarthritis, unspecified; M06.9 Rheumatoid arthritis, unspecified; Z95.0 Presence of cardiac pacemaker
CPT/HCPCS: 72072; 72100